=== PATIENT | female | born 1945 | race Caucasian/White ===

== ENCOUNTER 2017-01-02 15:08 | Inpatient (IN) | payer MEDICARE ==
[2017-01-02] MEDS ORDERED: DUONEB 0.5-3 MG/3 ml Neb IH PRN (16:19)
[2017-01-02] MEDS ORDERED: Sodium Chloride 0.9% 10 ML FLUSH Syringe IV PRN (16:22)
[2017-01-02 16:31] LABS: BASOPHIL % 0.2 % (0.0-0.4); Eosinophil % 5.9 % (0.00-5.0); Granulocytes % 65.2 % (36.0-66.0); Lymphocytes % 22.7 % (24.0-44.0); Mean Cell Volume 87.9 fl (78-100); Mean Platelet Volume 10.5 fl (6-9.5); Platelet Count 188 K/mm3 (150-450); Red Blood Count 4.29 M/mm3 (4.1-5.4); Red Cell Distribution Width 15.6 % (11.5-14.0); White Blood Count 9.3 K/mm3 (4.0-10.5)
[2017-01-02 16:59] LABS: ANION GAP 12.8 MEQ/L (5-15); BILIRUBIN,TOTAL 0.3 mg/dL (0.2-1.0); Carbon Dioxide 29.7 mEq/L (21-32); Potassium 4.4 mEq/L (3.5-5.1); Total Protein 7.1 gm/dL (6.4-8.2)
[2017-01-02] MEDS ORDERED: ATARAX 25 MG PO PRN (16:59)
[2017-01-02] MEDS ORDERED: ISOPTIN SR 180MG PO SCH (17:00)
[2017-01-02] MEDS: NORCO 7.5/325 MG TAB PO PRN ×2 (17:11→21:39)
[2017-01-02] MEDS: BUMEX 1 MG PO SCH (17:11)
[2017-01-02] MEDS: NovoLOG Insulin SQ PRN ×2 (17:17→22:28)
[2017-01-02] MEDS: VANCOCIN 1 GM VIAL*** 2 GM in Sodium Chloride 0.9% 500 ML 500 ML IV SCH (18:34)
[2017-01-02] MEDS: ENOXAPARIN SODIUM SQ SCH (18:34)
[2017-01-02] MEDS: Advair Hfa 230/21 Mcg COMMON CANISTER IH SCH (19:30)
[2017-01-02] MEDS ORDERED: NYSTATIN TOP SCH (22:00)
[2017-01-02] MEDS ORDERED: Lantus Insulin SQ SCH ×2 (22:00)
[2017-01-02] MEDS ORDERED: NON-FORMULARY ITEM (Losartan Potassium [Losartan Potassium] 100 MG) PO SCH (22:00)
[2017-01-02] MEDS: Cozaar 50 MG PO SCH (22:24)
[2017-01-02] MEDS: NEURONTIN 300 MG PO SCH (22:25)
[2017-01-02] MEDS: Ditropan 5 MG PO SCH (22:25)
[2017-01-02] MEDS: DULCOLAX 5 MG PO SCH (22:26)
[2017-01-02] MEDS: Catapres 0.1 MG PO SCH (22:26)
[2017-01-02] MEDS: NYSTOP POWDER 15 GM TOP SCH (22:27)
[2017-01-02] MEDS: Sodium Chloride 0.9% 10 ML FLUSH Syringe IV SCH (23:13)
[2017-01-02] MEDS: ISOPTIN SR 180MG PO SCH (23:22)
[2017-01-03] MEDS: Sodium Chloride 0.9% 10 ML FLUSH Syringe IV SCH ×2 (06:44→12:32)
[2017-01-03] MEDS: Advair Hfa 230/21 Mcg COMMON CANISTER IH SCH ×2 (07:34→19:13)
[2017-01-03] MEDS: BUMEX 1 MG PO SCH (08:23)
[2017-01-03] MEDS: NEURONTIN 300 MG PO SCH ×3 (08:23→21:36)
[2017-01-03] MEDS: Catapres 0.1 MG PO SCH ×3 (08:24→21:36)
[2017-01-03] MEDS: NYSTOP POWDER 15 GM TOP SCH (08:24)
[2017-01-03] MEDS: Ditropan 5 MG PO SCH ×2 (08:24→21:36)
[2017-01-03] MEDS: ISOPTIN SR 180MG PO SCH ×2 (08:24→21:34)
[2017-01-03] MEDS: NovoLOG Insulin SQ PRN ×3 (08:26→16:50)
[2017-01-03] MEDS: ENOXAPARIN SODIUM SQ SCH (08:27)
[2017-01-03] MEDS: NORCO 7.5/325 MG TAB PO PRN (08:31)
[2017-01-03] MEDS: Ecotrin 325 MG PO SCH (09:29)
[2017-01-03] MEDS: Zocor 10MG PO SCH (09:29)
[2017-01-03] MEDS ORDERED: NON-FORMULARY ITEM (Pravastatin Sodium [Pravastatin Sodium] 20 MG) PO SCH (10:00)
[2017-01-03] MEDS ORDERED: Dulcolax 10 MG SUPP PR PRN (10:58)
--- NOTE | 2017-01-03 11:02 | PCM.NOTE ---
Date and Time: 01/03/17 1057 Subjective Assessment: She is c/o sharp pain in the RLE. seems to have increased warmth since yesterday. Ferdinand po well. constipated. Objective Exam General Appearance: no apparent distress, obese Neurologic Exam: alert, oriented x 3, cooperative Skin Exam: warm Respiratory Exam: normal breath sounds, lungs clear, No crackles/rales, No rhonchi, No wheezing Cardiovascular Exam: regular rate/rhythm, normal heart sounds, No murmur Gastrointestinal/Abdomen Exam: soft, No tenderness Extremity Exam: other (LLE with chronic venous stasis change. RLE wrapped initially with dried yellow exudate; there is an odor. Erythema till approx 4cm distal to the knee; warm. when unwrapped, erythema is muted throughout.anteriorly there are several areas of shallow depression with blood seeping (s/p PT).) OBJECTIVE DATA Vital Signs: Vital Signs - 24 hr Temp Pulse Resp BP Pulse Ox 01/03/17 07:58 97.8 F 63 24 146/66 92 L 01/03/17 07:00 92 H 18 93 L 01/03/17 03:53 98.3 F 60 19 126/60 97 01/03/17 00:00 98.4 F 63 20 120/62 94 L 01/02/17 19:46 97.7 F 63 18 130/66 95 01/02/17 19:30 69 18 96 01/02/17 16:45 72 20 94 L 01/02/17 16:10 97.8 F 65 20 124/61 91 L Oxygen-Last 24 hours O2 Percentage 2 Liters = 28% O2 Percentage 2 Liters = 28% Pain Assessment - Last Documented Pain Intensity 6 Pain Scale Used 0-10 Pain Scale Intake and Output: Intake & Output 12/31/16 01/01/17 01/02/17 01/03/17 11:59 11:59 11:59 11:59 Intake Total 2467 Output Total 700 Balance 1767 Weight 189.42 kg Lab Results: Accuchecks Date 01/02/17 Date 01/02/17 Time 20:54 Time 16:30 Accucheck Value: 258 Accucheck Value: 315 Accucheck Value: 217 Lab Results-Last 24 Hours 01/02/17 01/02/17 01/02/17 Range/Units 16:15 16:15 16:16 WBC 9.3 (4.0-10.5) K/mm3 RBC 4.29 (4.1-5.4) M/mm3 Hgb 11.6 L (12.0-16.0) gm/dl Hct 37.7 (35-47) % MCV 87.9 (78-100) fl MCH 27.0 (26-32) pg MCHC 30.8 L (32-36) g/dl RDW 15.6 H (11.5-14.0) % Plt Count 188 (150-450) K/mm3 MPV 10.5 H (6-9.5) fl Gran % 65.2 (36.0-66.0) % Lymphocytes % 22.7 L (24.0-44.0) % Monocytes % 6.0 (0.0-12.0) % Eosinophils % 5.9 H (0.00-5.0) % Basophils % 0.2 (0.0-0.4) % Basophils # 0.02 (0-0.4) Sodium 141 (136-145) mEq/L Potassium 4.4 (3.5-5.1) mEq/L Chloride 103 (98-107) mEq/L Carbon Dioxide 29.7 (21-32) mEq/L Anion Gap 12.8 (5-15) MEQ/L BUN 24 H (9-20) mg/dL Creatinine 1.26 (0.55-1.30) mg/dl Estimated GFR 44 ML/MIN Glucose 237 H (70-110) MG/DL Calcium 9.3 (8.5-10.1) mg/dL Total Bilirubin 0.3 (0.2-1.0) mg/dL AST 15 (15-37) U/L ALT 12 (12-78) U/L Alkaline Phosphatase 87 (46-116) U/L Serum Total Protein 7.1 (6.4-8.2) gm/dL Albumin 3.0 L (3.4-5.0) g/dL Prealbumin 14.9 L (18.0-35.7) mg/dL Assessment/Plan (1) Cellulitis Current Visit: Yes Status: Acute Assessment & Plan: Seems a bit worse to her; will add IV levaquin to the IV vancomycin. Change norco to percocet for pain. Code(s): L03.90 - CELLULITIS, UNSPECIFIED (2) Constipation Current Visit: Yes Status: Acute Assessment & Plan: add miralax and dulcolax suppository prn. Code(s): K59.00 - CONSTIPATION, UNSPECIFIED (3) Renal insufficiency Current Visit: Yes Status: Acute Assessment & Plan: recheck in a.m. (4) Morbid obesity Current Visit: Yes Status: Chronic Code(s): E66.01 - MORBID (SEVERE) OBESITY DUE TO EXCESS CALORIES (5) Chronic back pain Current Visit: Yes Status: Chronic Qualifiers: Back pain location: back pain in unspecified location Back pain laterality : unspecified Qualified Code(s): M54.9 - Dorsalgia, unspecified; G89.29 - Other chronic pain Assessment & Plan: takes norco at baseline for back pain. Code(s): M54.9 - DORSALGIA, UNSPECIFIED; G89.29 - OTHER CHRONIC PAIN
[2017-01-03] MEDS: Levofloxacin 500MG/100ML D5W 100 ML IV SCH (11:25)
[2017-01-03] MEDS: Miralax Powder 17GM PACKET PO SCH (11:25)
[2017-01-03] MEDS: VANCOCIN 1 GM VIAL*** 2 GM in Sodium Chloride 0.9% 500 ML 500 ML IV SCH (12:32)
[2017-01-03] MEDS: OXYCODONE-ACETAMINOPHEN 10-325 PO PRN ×2 (13:41→20:02)
[2017-01-03] MEDS: Cozaar 50 MG PO SCH (21:34)
[2017-01-03] MEDS: DULCOLAX 5 MG PO SCH (21:37)
[2017-01-04] MEDS: OXYCODONE-ACETAMINOPHEN 10-325 PO PRN ×4 (04:50→21:28)
[2017-01-04] MEDS ORDERED: TROUGH DRUG LEVELS IJ ONE (05:30)
[2017-01-04] MEDS: VANCOCIN 1 GM VIAL*** 2 GM in Sodium Chloride 0.9% 500 ML 500 ML IV SCH (06:42)
[2017-01-04] MEDS: Advair Hfa 230/21 Mcg COMMON CANISTER IH SCH ×2 (06:47→19:14)
[2017-01-04] MEDS: NovoLOG Insulin SQ PRN ×4 (08:19→21:31)
--- NOTE | 2017-01-04 09:51 | PCM.NOTE ---
Date and Time: 01/04/17945 Subjective Assessment: The percocet helped her pain more than the norco; she was able to sleep last night. Still constipated but she did not take the dulcolax suppository; she did take the miralax. Redness is better in the RLE. - Review of Systems Constitutional: No Fever Musculoskeletal: Other (leg pain RLE wiht exudate) Objective Exam General Appearance: no apparent distress, obese Neurologic Exam: alert, oriented x 3, cooperative Respiratory Exam: normal breath sounds, lungs clear, No crackles/rales, No rhonchi, No wheezing Cardiovascular Exam: regular rate/rhythm, normal heart sounds, No murmur Extremity Exam: other (RLE with erythema approx 2-3 cm inferior to marked line. scattered open areas with yellow exudate and serous drainage) Back Exam: normal inspection OBJECTIVE DATA Vital Signs: Vital Signs - 24 hr Temp Pulse Resp BP Pulse Ox 01/04/17 07:30 97.9 F 60 20 110/57 94 L 01/04/17 06:51 78 18 96 01/04/17 04:00 98 F 18 L 134/84 95 01/04/17 00:00 98 F 18 L 134/84 95 01/03/17 20:00 98.4 F 17 L 134/63 96 01/03/17 19:13 17 L 96 01/03/17 15:20 98.4 F 67 20 134/63 97 01/03/17 12:00 97.8 F 77 26 H 147/77 93 L Oxygen-Last 24 hours O2 Percentage 2 Liters = 28% O2 Percentage 2 Liters = 28% Pain Assessment - Last Documented Pain Intensity 2 Pain Scale Used 0-10 Pain Scale Intake and Output: Intake & Output 01/01/17 01/02/17 01/03/17 01/04/17 11:59 11:59 11:59 11:59 Intake Total 2467 1100 Output Total 700 2300 Balance 1767 -1200 Weight 189.42 kg 190.645 kg Lab Results: Accuchecks Date 01/04/17 Date 01/03/17 Date 01/03/17 Time 08:19 Time 21:30 Time 12:00 Accucheck Value: 236 Accucheck Value: 298 Accucheck Value: 293 Accucheck Value: 358 Lab Results-Last 24 Hours 01/04/17 Range/Units 05:25 Vancomycin Trough 13.5 (10-20) UG/ML Multi-Disciplinary Progress Notes: Multi-Disciplinary Progress Notes 01/03/17 13:15 Physical Therapy Note by My Devi TUBIGRIP SLEEVE CHARGED TO PATIENT FOR UNDER WALKING BOOT LLE. DISCUSSED SKIN CARE BEST METHOD AT THIS TIME WITH PHYSICIAN AND NURSING STAFF.....BARRIER OINTMENT TO RIGHT CALF 2-3X PER DAY.....DAILY HIBICLENS SOAK....ICE PACKS TO COUNTER INFLAMMATION BID AND PRN. Initialized on 01/03/17 13:15 - END OF NOTE Assessment/Plan (1) Cellulitis Current Visit: Yes Status: Acute Assessment & Plan: Seems much improved since yesterday. On Day #3 of Vancomycin and day #2 of levaquin, both IV. Pain is better on percocet. Code(s): L03.90 - CELLULITIS, UNSPECIFIED (2) Constipation Current Visit: Yes Status: Acute Assessment & Plan: Has not had a bowel movement yet. I encouraged daily miralax and try the dulcolax suppository today. Code(s): K59.00 - CONSTIPATION, UNSPECIFIED (3) Renal insufficiency Current Visit: Yes Status: Acute Assessment & Plan: recheck labs in a.m. (4) Morbid obesity Current Visit: Yes Status: Chronic Code(s): E66.01 - MORBID (SEVERE) OBESITY DUE TO EXCESS CALORIES (5) Chronic back pain Current Visit: Yes Status: Chronic Qualifiers: Back pain location: back pain in unspecified location Back pain laterality : unspecified Qualified Code(s): M54.9 - Dorsalgia, unspecified; G89.29 - Other chronic pain Code(s): M54.9 - DORSALGIA, UNSPECIFIED; G89.29 - OTHER CHRONIC PAIN (6) Diabetes mellitus Current Visit: Yes Status: Acute Qualifiers: Diabetes mellitus type: type 2 Diabetes mellitus complication status: without complication Diabetes mellitus ferry terminal agent insulin use: unspecified jail insulin use status Qualified Code(s): E11.9 - Type 2 diabetes mellitus without complications Assessment & Plan: A1c 8.4. BS 250s-300s here; will increase lantus from 40 units to 45 units at hs. Code(s): E11.9 - TYPE 2 DIABETES MELLITUS WITHOUT COMPLICATIONS
[2017-01-04] MEDS: Miralax Powder 17GM PACKET PO SCH (10:30)
[2017-01-04] MEDS: NEURONTIN 300 MG PO SCH ×3 (10:30→21:26)
[2017-01-04] MEDS: NYSTOP POWDER 15 GM TOP SCH ×2 (10:30→21:30)
[2017-01-04] MEDS: Ecotrin 325 MG PO SCH (10:30)
[2017-01-04] MEDS: BUMEX 1 MG PO SCH (10:30)
[2017-01-04] MEDS: Ditropan 5 MG PO SCH ×2 (10:30→21:27)
[2017-01-04] MEDS: ISOPTIN SR 180MG PO SCH ×2 (10:30→21:29)
[2017-01-04] MEDS: Levofloxacin 500MG/100ML D5W 100 ML IV SCH (10:30)
[2017-01-04] MEDS: Catapres 0.1 MG PO SCH ×3 (10:30→21:27)
[2017-01-04] MEDS: Zocor 10MG PO SCH (10:30)
[2017-01-04] MEDS: ENOXAPARIN SODIUM SQ SCH (10:30)
[2017-01-04] MEDS: Sodium Chloride 0.9% 10 ML FLUSH Syringe IV SCH ×2 (14:00→21:29)
[2017-01-04] MEDS: DULCOLAX 5 MG PO SCH (21:27)
[2017-01-04] MEDS: Cozaar 50 MG PO SCH (21:28)
[2017-01-04] MEDS ORDERED: Lantus Insulin SQ SCH (22:00)
[2017-01-05] MEDS: VANCOCIN 1 GM VIAL*** 2 GM in Sodium Chloride 0.9% 500 ML 500 ML IV SCH ×3 (00:54→17:07)
[2017-01-05] MEDS: OXYCODONE-ACETAMINOPHEN 10-325 PO PRN ×5 (03:42→22:12)
[2017-01-05 05:31] LABS: BASOPHIL % 0.3 % (0.0-0.4); Eosinophil % 7.5 % (0.00-5.0); Granulocytes % 56.4 % (36.0-66.0); Lymphocytes % 27.9 % (24.0-44.0); Mean Cell Volume 89.6 fl (78-100); Mean Platelet Volume 10.7 fl (6-9.5); Monocytes % 7.9 % (0.0-12.0); Platelet Count 157 K/mm3 (150-450); Red Blood Count 4.04 M/mm3 (4.1-5.4); Red Cell Distribution Width 15.3 % (11.5-14.0); White Blood Count 6.8 K/mm3 (4.0-10.5)
[2017-01-05 05:35] LABS: Mean Corpuscular Hemoglobin 27.4 pg (26-32)
[2017-01-05 06:09] LABS: ANION GAP 12.9 MEQ/L (5-15); Carbon Dioxide 28.6 mEq/L (21-32); Potassium 4.5 mEq/L (3.5-5.1)
[2017-01-05] MEDS: Advair Hfa 230/21 Mcg COMMON CANISTER IH SCH ×2 (06:30→19:51)
[2017-01-05] MEDS: NovoLOG Insulin SQ PRN ×4 (07:30→22:16)
[2017-01-05] MEDS: Miralax Powder 17GM PACKET PO SCH (08:05)
[2017-01-05] MEDS: Levofloxacin 500MG/100ML D5W 100 ML IV SCH (08:05)
[2017-01-05] MEDS: Zocor 10MG PO SCH (08:06)
[2017-01-05] MEDS: Ecotrin 325 MG PO SCH (08:06)
[2017-01-05] MEDS: NEURONTIN 300 MG PO SCH ×3 (08:06→22:12)
[2017-01-05] MEDS: Ditropan 5 MG PO SCH ×2 (08:06→22:12)
[2017-01-05] MEDS: BUMEX 1 MG PO SCH (08:06)
[2017-01-05] MEDS: ENOXAPARIN SODIUM SQ SCH (08:06)
[2017-01-05] MEDS: Sodium Chloride 0.9% 10 ML FLUSH Syringe IV SCH ×3 (08:11→20:30)
--- NOTE | 2017-01-05 08:25 | PCM.NOTE ---
Date and Time: 01/05/17816 Subjective Assessment: no new problems or concerns, has some improvement in redness and pain to right leg. Objective Exam General Appearance: no apparent distress, alert, obese Respiratory Exam: normal breath sounds, lungs clear, No respiratory distress Gastrointestinal/Abdomen Exam: soft, No tenderness, No mass Extremity Exam: other (right lower leg, superficial open area. improved erythema , mild drainage present) OBJECTIVE DATA Vital Signs: Vital Signs - 24 hr Temp Pulse Resp BP Pulse Ox 01/05/17 07:19 97.7 F 60 18 102/55 96 01/05/17 06:33 65 16 94 L 01/05/17 04:00 97.7 F 66 15 134/64 94 L 01/05/17 00:00 97.9 F 70 15 150/65 95 01/04/17 20:00 98.3 F 63 17 124/63 95 01/04/17 19:16 67 20 95 01/04/17 16:00 64 18 125/58 93 L 01/04/17 11:47 98.2 F 61 18 108/53 95 Oxygen-Last 24 hours O2 Percentage 2 Liters = 28% O2 Percentage 2 Liters = 28% O2 Percentage 2 Liters = 28% O2 Percentage 2 Liters = 28% O2 Percentage 2 Liters = 28% O2 Percentage 2 Liters = 28% Pain Assessment - Last Documented Pain Intensity 4 Pain Scale Used 0-10 Pain Scale Intake and Output: Intake & Output 01/02/17 01/03/17 01/04/17 01/05/17 11:59 11:59 11:59 11:59 Intake Total 2467 1100 2180 Output Total 700 2300 900 Balance 1767 -1200 1280 Weight 189.42 kg 190.645 kg Lab Results: Accuchecks Date 01/05/17 Date 01/04/17 Time 07:31 Time 11:30 Accucheck Value: 259 Accucheck Value: 357 Accucheck Value: 329 Accucheck Value: 343 Lab Results-Last 24 Hours 01/05/17 01/05/17 Range/Units 05:15 05:15 WBC 6.8 (4.0-10.5) K/mm3 RBC 4.04 L (4.1-5.4) M/mm3 Hgb 11.1 L (12.0-16.0) gm/dl Hct 36.2 (35-47) % MCV 89.6 (78-100) fl MCH 27.4 (26-32) pg MCHC 30.7 L (32-36) g/dl RDW 15.3 H (11.5-14.0) % Plt Count 157 (150-450) K/mm3 MPV 10.7 H (6-9.5) fl Gran % 56.4 (36.0-66.0) % Lymphocytes % 27.9 (24.0-44.0) % Monocytes % 7.9 (0.0-12.0) % Eosinophils % 7.5 H (0.00-5.0) % Basophils % 0.3 (0.0-0.4) % Basophils # 0.02 (0-0.4) Sodium 138 (136-145) mEq/L Potassium 4.5 (3.5-5.1) mEq/L Chloride 101 (98-107) mEq/L Carbon Dioxide 28.6 (21-32) mEq/L Anion Gap 12.9 (5-15) MEQ/L BUN 20 (9-20) mg/dL Creatinine 1.31 H (0.55-1.30) mg/dl Estimated GFR 42 ML/MIN Glucose 335 H (70-110) MG/DL Calcium 8.9 (8.5-10.1) mg/dL Assessment/Plan (1) Cellulitis Current Visit: Yes Status: Acute Assessment & Plan: continue Vanc, wound c and s pending. continue PT for wound care. Code(s): L03.90 - CELLULITIS, UNSPECIFIED (2) Diabetes mellitus Current Visit: Yes Status: Acute Qualifiers: Diabetes mellitus type: type 2 Diabetes mellitus complication status: without complication Diabetes mellitus dedicated intermodal truck driver insulin use: unspecified fdc insulin use status Qualified Code(s): E11.9 - Type 2 diabetes mellitus without complications Assessment & Plan: stable, no changes Code(s): E11.9 - TYPE 2 DIABETES MELLITUS WITHOUT COMPLICATIONS (3) Renal insufficiency Current Visit: Yes Status: Acute (4) Morbid obesity Current Visit: Yes Status: Chronic Code(s): E66.01 - MORBID (SEVERE) OBESITY DUE TO EXCESS CALORIES
[2017-01-05] MEDS ORDERED: Lantus Insulin SQ SCH (08:27)
[2017-01-05] MEDS: Catapres 0.1 MG PO SCH ×4 (08:50→22:12)
[2017-01-05] MEDS: NYSTOP POWDER 15 GM TOP SCH ×2 (08:50→22:17)
[2017-01-05] MEDS: ISOPTIN SR 180MG PO SCH ×3 (08:50→22:12)
[2017-01-05] MEDS: Cozaar 50 MG PO SCH (22:09)
[2017-01-05] MEDS: DULCOLAX 5 MG PO SCH (22:10)
[2017-01-06] MEDS: OXYCODONE-ACETAMINOPHEN 10-325 PO PRN ×3 (05:56→19:35)
[2017-01-06] MEDS: Sodium Chloride 0.9% 10 ML FLUSH Syringe IV SCH ×3 (05:58→22:00)
[2017-01-06] MEDS: Advair Hfa 230/21 Mcg COMMON CANISTER IH SCH ×2 (06:53→19:12)
[2017-01-06] MEDS: NovoLOG Insulin SQ PRN ×4 (07:54→23:12)
[2017-01-06] MEDS ORDERED: CITROMA 296 ML PO SCH (08:30)
--- NOTE | 2017-01-06 08:33 | PCM.NOTE ---
Date and Time: 01/06/17829 Subjective Assessment: Leg pain is better, still hurts at times. Better wtih po pain meds. Still constipated despite miralax. Objective Exam General Appearance: no apparent distress, obese, other (SOB after changing position in bed) Neurologic Exam: alert, oriented x 3, cooperative Skin Exam: normal color, warm, dry Respiratory Exam: normal breath sounds, lungs clear, No crackles/rales, No rhonchi, No wheezing Cardiovascular Exam: regular rate/rhythm, normal heart sounds, No murmur Extremity Exam: other (RLE wrapped. erythema appears decreased superiorly. LLE chronic venous stasis change as usual.) OBJECTIVE DATA Vital Signs: Vital Signs - 24 hr Temp Pulse Resp BP Pulse Ox 01/06/17 07:35 98.5 F 74 20 126/60 95 01/06/17 07:00 72 18 92 L 01/06/17 04:00 98.4 F 85 22 155/65 90 L 01/06/17 00:00 98.1 F 70 22 128/57 96 01/05/17 20:00 98.0 F 64 24 114/64 96 01/05/17 19:00 65 18 89 L 01/05/17 15:55 98.3 F 65 18 109/56 96 01/05/17 11:10 98.2 F 65 18 141/65 93 L Oxygen-Last 24 hours O2 Percentage 2 Liters = 28% O2 Percentage 2 Liters = 28% O2 Percentage 2 Liters = 28% O2 Percentage 2 Liters = 28% O2 Percentage 2 Liters = 28% Pain Assessment - Last Documented Pain Intensity 6 Pain Scale Used [facility] Intake and Output: Intake & Output 01/03/17 01/04/17 01/05/17 01/06/17 11:59 11:59 11:59 11:59 Intake Total 2467 1100 2660 1580 Output Total 700 2300 1800 1900 Balance 1767 -1200 860 -320 Weight 189.42 kg 190.645 kg 192.913 kg Lab Results: Accuchecks Date 01/05/17 Date 01/05/17 Date 01/05/17 Time 21:30 Time 16:20 Time 11:15 Accucheck Value: 326 Accucheck Value: 310 Accucheck Value: 321 Assessment/Plan (1) Cellulitis Current Visit: Yes Status: Acute Qualifiers: Site of cellulitis: extremity Site of cellulitis of extremity: lower extremity Laterality: right Qualified Code(s): L03.115 - Cellulitis of right lower limb Assessment & Plan: On IV vancomycin and levaquin with good response. PT doing wound care, thank you! Code(s): L03.90 - CELLULITIS, UNSPECIFIED (2) Constipation Current Visit: Yes Status: Acute Qualifiers: Constipation type: slow transit constipation Qualified Code(s): K59.01 - Slow transit constipation Assessment & Plan: exacerbated by pain meds. Try magnesium citrate today. Code(s): K59.00 - CONSTIPATION, UNSPECIFIED (3) Renal insufficiency Current Visit: Yes Status: Acute Assessment & Plan: recheck in a.m. (4) Morbid obesity Current Visit: Yes Status: Chronic Qualifiers: Obesity type: due to excess calories Qualified Code(s): E66.01 - Morbid ( severe) obesity due to excess calories Code(s): E66.01 - MORBID (SEVERE) OBESITY DUE TO EXCESS CALORIES (5) Chronic back pain Current Visit: Yes Status: Chronic Qualifiers: Back pain location: back pain in unspecified location Back pain laterality : unspecified Qualified Code(s): M54.9 - Dorsalgia, unspecified; G89.29 - Other chronic pain Code(s): M54.9 - DORSALGIA, UNSPECIFIED; G89.29 - OTHER CHRONIC PAIN (6) Diabetes mellitus Current Visit: Yes Status: Acute Qualifiers: Diabetes mellitus type: type 2 Diabetes mellitus complication status: without complication Diabetes mellitus terminal clerk insulin use: unspecified terminal clerk insulin use status Qualified Code(s): E11.9 - Type 2 diabetes mellitus without complications Assessment & Plan: BS in 300s - will increase lantus to 55 units at hs. Code(s): E11.9 - TYPE 2 DIABETES MELLITUS WITHOUT COMPLICATIONS
[2017-01-06] MEDS: Miralax Powder 17GM PACKET PO SCH (09:04)
[2017-01-06] MEDS: Ecotrin 325 MG PO SCH (09:04)
[2017-01-06] MEDS: Ditropan 5 MG PO SCH ×2 (09:04→21:50)
[2017-01-06] MEDS: Zocor 10MG PO SCH (09:05)
[2017-01-06] MEDS: Catapres 0.1 MG PO SCH ×3 (09:05→21:50)
[2017-01-06] MEDS: ISOPTIN SR 180MG PO SCH ×2 (09:05→21:50)
[2017-01-06] MEDS: BUMEX 1 MG PO SCH (09:06)
[2017-01-06] MEDS: NEURONTIN 300 MG PO SCH ×3 (09:06→21:50)
[2017-01-06] MEDS: NYSTOP POWDER 15 GM TOP SCH ×2 (09:10→21:50)
[2017-01-06] MEDS: Levofloxacin 500MG/100ML D5W 100 ML IV SCH (09:13)
[2017-01-06] MEDS: ENOXAPARIN SODIUM SQ SCH (10:49)
[2017-01-06] MEDS ORDERED: TROUGH DRUG LEVELS IJ ONE (11:30)
[2017-01-06] MEDS: VANCOCIN 1 GM VIAL*** 2 GM in Sodium Chloride 0.9% 500 ML 500 ML IV SCH (11:52)
[2017-01-06] MEDS: Cozaar 50 MG PO SCH (21:49)
[2017-01-06] MEDS: Lantus Insulin SQ SCH (21:52)
[2017-01-06] MEDS: DULCOLAX 5 MG PO SCH (22:10)
[2017-01-07] MEDS: Sodium Chloride 0.9% 10 ML FLUSH Syringe IV SCH ×3 (00:35→15:05)
[2017-01-07] MEDS: VANCOCIN 1 GM VIAL*** 2 GM in Sodium Chloride 0.9% 500 ML 500 ML IV SCH (05:34)
[2017-01-07] MEDS: OXYCODONE-ACETAMINOPHEN 10-325 PO PRN ×3 (05:34→21:56)
[2017-01-07 05:58] LABS: BASOPHIL % 0.4 % (0.0-0.4); Eosinophil % 7.8 % (0.00-5.0); Granulocytes % 57.6 % (36.0-66.0); Lymphocytes % 25.1 % (24.0-44.0); Mean Cell Volume 89.4 fl (78-100); Mean Platelet Volume 10.5 fl (6-9.5); Monocytes % 9.1 % (0.0-12.0); Platelet Count 148 K/mm3 (150-450); Red Blood Count 4.14 M/mm3 (4.1-5.4); Red Cell Distribution Width 15.2 % (11.5-14.0); White Blood Count 7.3 K/mm3 (4.0-10.5)
[2017-01-07 05:59] LABS: Mean Corpuscular Hemoglobin 27.2 pg (26-32)
[2017-01-07 06:05] LABS: ANION GAP 8.4 MEQ/L (5-15); Carbon Dioxide 32.4 mEq/L (21-32); Potassium 4.5 mEq/L (3.5-5.1)
[2017-01-07] MEDS: Advair Hfa 230/21 Mcg COMMON CANISTER IH SCH ×2 (07:19→19:33)
[2017-01-07] MEDS: NovoLOG Insulin SQ PRN ×4 (08:02→22:10)
--- NOTE | 2017-01-07 08:47 | PCM.NOTE ---
Date and Time: 01/07/17 0844 Subjective Assessment: redness, drainage, pain and swelling improving to RLE. Objective Exam General Appearance: no apparent distress, alert, obese Respiratory Exam: normal breath sounds, lungs clear, No respiratory distress Cardiovascular Exam: regular rate/rhythm, normal heart sounds Gastrointestinal/Abdomen Exam: soft, No tenderness, No mass Extremity Exam: other (superficial open area, improved redness and warmth) OBJECTIVE DATA Vital Signs: Vital Signs - 24 hr Temp Pulse Resp BP Pulse Ox 01/07/17 07:19 71 16 97 01/07/17 07:14 98.5 F 71 18 135/67 92 L 01/07/17 04:00 99.0 F 64 19 118/56 95 01/07/17 00:00 98.1 F 65 19 120/61 93 L 01/06/17 20:00 98.0 F 69 20 131/64 95 01/06/17 19:00 63 18 93 L 01/06/17 16:00 98.0 F 58 L 18 114/56 95 01/06/17 11:48 98.0 F 70 18 121/57 96 Oxygen-Last 24 hours O2 Percentage 2 Liters = 28% O2 Percentage 2 Liters = 28% O2 Percentage 2 Liters = 28% Pain Assessment - Last Documented Pain Intensity 6 Pain Scale Used 0-10 Pain Scale Intake and Output: Intake & Output 01/04/17 01/05/17 01/06/17 01/07/17 11:59 11:59 11:59 11:59 Intake Total 1100 2660 1960 2300 Output Total 2300 1800 1900 800 Balance -1200 808 05 1067 Weight 190.645 kg 192.913 kg 193.503 kg Lab Results: Accuchecks Date 01/06/17 Date 01/06/17 Date 01/06/17 Time 22:00 Time 16:30 Time 11:30 Accucheck Value: 307 Accucheck Value: 274 Accucheck Value: 299 Lab Results-Last 24 Hours 01/06/17 01/07/17 01/07/17 Range/Units 11:33 05:22 05:22 WBC 7.3 (4.0-10.5) K/mm3 RBC 4.14 (4.1-5.4) M/mm3 Hgb 11.3 L (12.0-16.0) gm/dl Hct 37.0 (35-47) % MCV 89.4 (78-100) fl MCH 27.2 (26-32) pg MCHC 30.5 L (32-36) g/dl RDW 15.2 H (11.5-14.0) % Plt Count 148 L (150-450) K/mm3 MPV 10.5 H (6-9.5) fl Gran % 57.6 (36.0-66.0) % Lymphocytes % 25.1 (24.0-44.0) % Monocytes % 9.1 (0.0-12.0) % Eosinophils % 7.8 H (0.00-5.0) % Basophils % 0.4 (0.0-0.4) % Basophils # 0.03 (0-0.4) Sodium 137 (136-145) mEq/L Potassium 4.5 (3.5-5.1) mEq/L Chloride 101 (98-107) mEq/L Carbon Dioxide 32.4 H (21-32) mEq/L Anion Gap 8.4 (5-15) MEQ/L BUN 21 H (9-20) mg/dL Creatinine 1.35 H (0.55-1.30) mg/dl Estimated GFR 41 ML/MIN Glucose 301 H (70-110) MG/DL Calcium 9.2 (8.5-10.1) mg/dL Vancomycin Trough 17.0 (10-20) UG/ML Multi-Disciplinary Progress Notes: Multi-Disciplinary Progress Notes 01/06/17 12:54 Pharmacy Note by Alexei Andrew Vancomycin trough 17.0. Good level, creat up a little to 1.31. BMP scheduled for tomorrow am. Will adjust dose if creat goes up. Initialized on 01/06/17 12:54 - END OF NOTE 01/06/17 10:43 Case Management Note by Krista Simental SPOKE WITH PT THIS AM. PT ALREADY HAS [facility]. WILL CONT TO MONITOR ANY D/ C NEEDS DURING STAY. Initialized on 01/06/17 10:43 - END OF NOTE Assessment/Plan (1) Cellulitis Current Visit: Yes Status: Acute Qualifiers: Site of cellulitis: extremity Site of cellulitis of extremity: lower extremity Laterality: right Qualified Code(s): L03.115 - Cellulitis of right lower limb Assessment & Plan: continue vanc and levaquin, improving. wound culture not helpful, multiple organisms c/w skin jonnathan, no predominant organism Code(s): L03.90 - CELLULITIS, UNSPECIFIED (2) Diabetes mellitus Current Visit: Yes Status: Acute Qualifiers: Diabetes mellitus type: type 2 Diabetes mellitus complication status: without complication Diabetes mellitus petroleum terminal plant operator insulin use: unspecified petroleum terminal plant operator insulin use status Qualified Code(s): E11.9 - Type 2 diabetes mellitus without complications Code(s): E11.9 - TYPE 2 DIABETES MELLITUS WITHOUT COMPLICATIONS (3) Renal insufficiency Current Visit: Yes Status: Acute (4) Morbid obesity Current Visit: Yes Status: Chronic Qualifiers: Obesity type: due to excess calories Qualified Code(s): E66.01 - Morbid ( severe) obesity due to excess calories Code(s): E66.01 - MORBID (SEVERE) OBESITY DUE TO EXCESS CALORIES (5) Constipation Current Visit: Yes Status: Acute Qualifiers: Constipation type: slow transit constipation Qualified Code(s): K59.01 - Slow transit constipation Assessment & Plan: no results with prune juice, mag citrate etc. order fleets enema today Code(s): K59.00 - CONSTIPATION, UNSPECIFIED
[2017-01-07] MEDS: Catapres 0.1 MG PO SCH ×3 (09:46→21:56)
[2017-01-07] MEDS: NEURONTIN 300 MG PO SCH ×3 (09:46→21:57)
[2017-01-07] MEDS: Ditropan 5 MG PO SCH ×2 (09:46→21:57)
[2017-01-07] MEDS: Zocor 10MG PO SCH (09:46)
[2017-01-07] MEDS: Miralax Powder 17GM PACKET PO SCH (09:46)
[2017-01-07] MEDS: Levofloxacin 500MG/100ML D5W 100 ML IV SCH (09:46)
[2017-01-07] MEDS: ISOPTIN SR 180MG PO SCH ×2 (09:47→21:57)
[2017-01-07] MEDS: ENOXAPARIN SODIUM SQ SCH (09:47)
[2017-01-07] MEDS: BUMEX 1 MG PO SCH (09:47)
[2017-01-07] MEDS: NYSTOP POWDER 15 GM TOP SCH ×2 (09:47→22:00)
[2017-01-07] MEDS: Ecotrin 325 MG PO SCH (09:47)
[2017-01-07] MEDS: Cozaar 50 MG PO SCH (21:56)
[2017-01-07] MEDS: DULCOLAX 5 MG PO SCH (21:57)
[2017-01-07] MEDS: Lantus Insulin SQ SCH (22:09)
[2017-01-08] MEDS: VANCOCIN 1 GM VIAL*** 2 GM in Sodium Chloride 0.9% 500 ML 500 ML IV SCH (05:09)
[2017-01-08 05:35] LABS: BASOPHIL % 0.2 % (0.0-0.4); Eosinophil % 8.4 % (0.00-5.0); Granulocytes % 53.3 % (36.0-66.0); Lymphocytes % 30.1 % (24.0-44.0); Mean Cell Volume 88.3 fl (78-100); Mean Platelet Volume 10.7 fl (6-9.5); Platelet Count 156 K/mm3 (150-450); Red Blood Count 4.29 M/mm3 (4.1-5.4); Red Cell Distribution Width 15.2 % (11.5-14.0); White Blood Count 8.1 K/mm3 (4.0-10.5)
[2017-01-08 05:38] LABS: Mean Corpuscular Hemoglobin 27.2 pg (26-32)
[2017-01-08 05:56] LABS: ANION GAP 11.2 MEQ/L (5-15); Carbon Dioxide 30.2 mEq/L (21-32); Potassium 4.5 mEq/L (3.5-5.1)
[2017-01-08] MEDS: Advair Hfa 230/21 Mcg COMMON CANISTER IH SCH ×2 (06:44→19:46)
[2017-01-08] MEDS: OXYCODONE-ACETAMINOPHEN 10-325 PO PRN ×3 (08:04→22:36)
[2017-01-08] MEDS: NovoLOG Insulin SQ PRN ×4 (08:50→22:37)
[2017-01-08] MEDS: Levofloxacin 500MG/100ML D5W 100 ML IV SCH (08:54)
[2017-01-08] MEDS: BUMEX 1 MG PO SCH (09:28)
[2017-01-08] MEDS: NEURONTIN 300 MG PO SCH ×3 (09:28→22:36)
[2017-01-08] MEDS: Catapres 0.1 MG PO SCH ×3 (09:28→22:36)
[2017-01-08] MEDS: Miralax Powder 17GM PACKET PO SCH (09:28)
[2017-01-08] MEDS: Ditropan 5 MG PO SCH ×2 (09:28→22:36)
[2017-01-08] MEDS: Ecotrin 325 MG PO SCH (09:28)
[2017-01-08] MEDS: Zocor 10MG PO SCH (09:29)
[2017-01-08] MEDS: ENOXAPARIN SODIUM SQ SCH (09:29)
[2017-01-08] MEDS: ISOPTIN SR 180MG PO SCH ×2 (09:29→22:36)
[2017-01-08] MEDS: NYSTOP POWDER 15 GM TOP SCH ×2 (09:37→23:02)
[2017-01-08] MEDS: Sodium Chloride 0.9% 10 ML FLUSH Syringe IV SCH ×4 (10:49→22:36)
--- NOTE | 2017-01-08 13:28 | PCM.NOTE ---
Date and Time: 01/08/17 1327 Subjective Assessment: doing better this am, bowels moved yesterday. leg is improving, still has some drainage but pain and swelling improving. Objective Exam General Appearance: obese Skin Exam: normal color Respiratory Exam: normal breath sounds, lungs clear, No respiratory distress Cardiovascular Exam: regular rate/rhythm, normal heart sounds Gastrointestinal/Abdomen Exam: soft, No tenderness, No mass Extremity Exam: other (right lower leg improving, less erythema, less drainage and open areas appear to be granulating) OBJECTIVE DATA Vital Signs: Vital Signs - 24 hr Temp Pulse Resp BP Pulse Ox 01/08/17 11:24 97.5 F 60 20 125/60 96 01/08/17 06:51 97.5 F 60 20 143/74 95 01/08/17 06:45 57 L 18 94 L 01/08/17 04:00 97.8 F 63 18 112/58 96 01/08/17 00:00 97.7 F 58 L 18 123/59 97 01/07/17 20:00 97.9 F 66 14 114/59 92 L 01/07/17 19:35 56 L 18 97 01/07/17 16:17 98 F 65 20 98/48 95 Oxygen-Last 24 hours O2 Percentage 2 Liters = 28% O2 Percentage 2 Liters = 28% O2 Percentage 2 Liters = 28% O2 Percentage 2 Liters = 28% O2 Percentage 2 Liters = 28% Pain Assessment - Last Documented Pain Intensity 7 Pain Scale Used 0-10 Pain Scale Intake and Output: Intake & Output 01/06/17 01/07/17 01/08/17 01/09/17 11:59 11:59 11:59 11:59 Intake Total 1960 2780 1160 Output Total 1900 800 600 Balance 60 1980 560 Weight 192.913 kg 193.503 kg 193.865 kg Lab Results: Accuchecks Date 01/08/17 Date 01/08/17 Date 01/07/17 Time 11:52 Time 07:30 Accucheck Value: 347 Accucheck Value: 294 Accucheck Value: 376 Accucheck Value: 307 Lab Results-Last 24 Hours 01/08/17 01/08/17 Range/Units 05:22 05:22 WBC 8.1 (4.0-10.5) K/mm3 RBC 4.29 (4.1-5.4) M/mm3 Hgb 11.7 L (12.0-16.0) gm/dl Hct 37.9 (35-47) % MCV 88.3 (78-100) fl MCH 27.2 (26-32) pg MCHC 30.9 L (32-36) g/dl RDW 15.2 H (11.5-14.0) % Plt Count 156 (150-450) K/mm3 MPV 10.7 H (6-9.5) fl Gran % 53.3 (36.0-66.0) % Lymphocytes % 30.1 (24.0-44.0) % Monocytes % 8.0 (0.0-12.0) % Eosinophils % 8.4 H (0.00-5.0) % Basophils % 0.2 (0.0-0.4) % Basophils # 0.02 (0-0.4) Sodium 138 (136-145) mEq/L Potassium 4.5 (3.5-5.1) mEq/L Chloride 101 (98-107) mEq/L Carbon Dioxide 30.2 (21-32) mEq/L Anion Gap 11.2 (5-15) MEQ/L BUN 21 H (9-20) mg/dL Creatinine 1.22 (0.55-1.30) mg/dl Estimated GFR 46 ML/MIN Glucose 294 H (70-110) MG/DL Calcium 9.7 (8.5-10.1) mg/dL Multi-Disciplinary Progress Notes: Multi-Disciplinary Progress Notes 01/08/17 12:36 Nutrition Note by Stacey Joy F/u Note: Note regular diet continues with 75-100% PO intake. Pt with hx DM. glu 294-- some reduction. Recommend change to ADA diet. Both goals being met: ongoing. Will monitor, f/u prn. LTonia Joy MSRDCD Initialized on 01/08/17 12:36 - END OF NOTE 01/08/17 10:54 Case Management Note by AROLDO BARROSO SPOKE WITH PT TODAY AND SHE STATES SHE FEELS WONDERFUL. PT HAS [facility] AND WILL CONTINUE THIS SERVICE WHEN DISCHARGED. SHE ALSO HAS HOME OXYGEN WITH [facility] AND CHECKS HER BLOOD SUGAR FOUR TIMES A DAY. PT STATES SHE HAS A WALKER AT HOME AND THAT HER NEPHEW LIVES WITH HER AND WILL HELP WITH ANY OTHER NEEDS. WILL CONTINUE TO MONITOR FOR ANY OTHER POSSIBLE NEEDS AT DISCHARGE. Initialized on 01/08/17 10:54 - END OF NOTE 01/07/17 17:08 Physical Therapy Note by My Devi CONSISTENT IMPROVEMENT IN CELLULITIS SYMPTOMS RIGHT LEG WITH PALLIATIVE CARE : HIBICLENS SOAK, BARRIER OINTMENT TOPICAL, SUREPRESS + GAUZE ARSEN LAYERS WITH TUBIGRIP LIGHT COMPRESSION LAYER. TODAY TUBIGRIP STOCKINETTE SIZE REDUCED TO SIZE G FROM SIZE J. SEROUS SEEPING DRAINAGE DIMINISHED TO MODERATE. EPIDERMIS SLOUGHING DIMINISHED; 3-4 SMALL RAW AREAS REMAIN ANTERIOR LOWER CALF. IV ANTIBIOTICS CONTINUE. Initialized on 01/07/17 17:08 - END OF NOTE Assessment/Plan (1) Cellulitis Current Visit: Yes Status: Acute Qualifiers: Site of cellulitis: extremity Site of cellulitis of extremity: lower extremity Laterality: right Qualified Code(s): L03.115 - Cellulitis of right lower limb Assessment & Plan: cont vanc/levaquin. much improved, possibly home on 01/09 with home health for wound care Code(s): L03.90 - CELLULITIS, UNSPECIFIED (2) Diabetes mellitus Current Visit: Yes Status: Acute Qualifiers: Diabetes mellitus type: type 2 Diabetes mellitus complication status: without complication Diabetes mellitus termite control servicer insulin use: unspecified residential insulin use status Qualified Code(s): E11.9 - Type 2 diabetes mellitus without complications Code(s): E11.9 - TYPE 2 DIABETES MELLITUS WITHOUT COMPLICATIONS (3) Renal insufficiency Current Visit: Yes Status: Acute (4) Morbid obesity Current Visit: Yes Status: Chronic Qualifiers: Obesity type: due to excess calories Qualified Code(s): E66.01 - Morbid ( severe) obesity due to excess calories Code(s): E66.01 - MORBID (SEVERE) OBESITY DUE TO EXCESS CALORIES (5) Constipation Current Visit: Yes Status: Acute Qualifiers: Constipation type: slow transit constipation Qualified Code(s): K59.01 - Slow transit constipation Code(s): K59.00 - CONSTIPATION, UNSPECIFIED
[2017-01-08] MEDS ORDERED: Lantus Insulin SQ SCH (22:00)
[2017-01-08] MEDS: Cozaar 50 MG PO SCH (22:36)
[2017-01-08] MEDS: DULCOLAX 5 MG PO SCH (22:37)
[2017-01-09] MEDS: OXYCODONE-ACETAMINOPHEN 10-325 PO PRN (05:49)
[2017-01-09] MEDS: VANCOCIN 1 GM VIAL*** 2 GM in Sodium Chloride 0.9% 500 ML 500 ML IV SCH (05:50)
[2017-01-09] MEDS: Sodium Chloride 0.9% 10 ML FLUSH Syringe IV SCH (05:51)
[2017-01-09 05:56] LABS: ANION GAP 7.7 MEQ/L (5-15); Carbon Dioxide 32.4 mEq/L (21-32); Potassium 4.3 mEq/L (3.5-5.1)
[2017-01-09] MEDS: Advair Hfa 230/21 Mcg COMMON CANISTER IH SCH (07:03)
[2017-01-09] MEDS: BUMEX 1 MG PO SCH (07:53)
[2017-01-09] MEDS: Zocor 10MG PO SCH (07:53)
[2017-01-09] MEDS: Miralax Powder 17GM PACKET PO SCH (07:53)
[2017-01-09] MEDS: ENOXAPARIN SODIUM SQ SCH (07:54)
[2017-01-09] MEDS: Catapres 0.1 MG PO SCH (07:54)
[2017-01-09] MEDS: ISOPTIN SR 180MG PO SCH (07:54)
[2017-01-09] MEDS: NEURONTIN 300 MG PO SCH (07:55)
[2017-01-09] MEDS: Ditropan 5 MG PO SCH (07:55)
[2017-01-09] MEDS: NYSTOP POWDER 15 GM TOP SCH (07:56)
[2017-01-09 08:00] VITALS: BP 108/55; PULSE 68; O2SAT 98
[2017-01-09] MEDS: Ecotrin 325 MG PO SCH (08:00)
--- NOTE | 2017-01-09 08:14 | PCM.DS ---
Discharge Summary Date of Admission: 01/02/17 15:08 Admitting Physician: GABRIELLA ORTEGA Primary Care Provider: GABRIELLA ORTEGA Allergies Allergies sulfamethoxazole [From Bactrim] Allergy (Verified 01/02/17 15:26) itching, SOB trimethoprim [From Bactrim] Allergy (Verified 08/29/14 21:44) zinc Adverse Reaction (Mild, Verified 01/02/17 17:25) Rash zinc oxide Adverse Reaction (Mild, Verified 01/02/17 17:25) Rash satin tape Allergy (Uncoded 01/02/17 15:27) Hospital Summary - Hospital Course Hospital Course: patient was admitted with cellulitis RLE, doing much better with abx and wound care. - Vitals & Intake/Output Vital Signs: Vital Signs Temperature 97.9 F 01/09/17 07:58 Pulse Rate 68 01/09/17 07:58 Respiratory Rate 18 01/09/17 07:58 Blood Pressure 108/55 01/09/17 07:58 O2 Sat by Pulse Oximetry 98 01/09/17 07:58 Oxygen-Last Documented O2 Percentage 2 Liters = 28% Intake & Output: Intake & Output 01/06/17 01/07/17 01/08/17 01/09/17 11:59 11:59 11:59 11:59 Intake Total 1960 2780 1160 1800 Output Total 1900 800 600 Balance 60 4106 948 9442 Weight 192.913 kg 193.503 kg 193.865 kg 195.226 kg - Lab Result Diagrams: 01/08/17 05:22 01/09/17 05:38 Lab Results-Last 24 Hrs: Accuchecks Date 01/09/17 Date 01/08/17 Date 01/08/17 Date 01/08/17 Time 07:30 Time 22:00 Time 16:30 Time 11:52 Accucheck Value: 254 Accucheck Value: 292 Accucheck Value: 308 Accucheck Value: 347 Lab Results-Last 24 Hours 01/09/17 Range/Units 05:38 Sodium 138 (136-145) mEq/L Potassium 4.3 (3.5-5.1) mEq/L Chloride 102 (98-107) mEq/L Carbon Dioxide 32.4 H (21-32) mEq/L Anion Gap 7.7 (5-15) MEQ/L BUN 19 (9-20) mg/dL Creatinine 1.16 (0.55-1.30) mg/dl Estimated GFR 49 ML/MIN Glucose 254 H (70-110) MG/DL Calcium 9.4 (8.5-10.1) mg/dL Micro Results-Entire Visit: Microbiology 01/02/17 16:24 - Final Blood Not Reportable Blood Culture - Final NO GROWTH 01/02/17 16:15 - Final Blood Not Reportable Blood Culture - Final NO GROWTH 01/02/17 16:16 Gram Stain - Final Leg - Right Lower Wound Culture - Final ORGANISMS ISOLATED ARE CONSISTENT WITH NORMAL SKIN SPENSER MODERATE GROWTH, NO PREDOMINANT ORGANISM Accuchecks Date 01/09/17 Date 01/08/17 Date 01/08/17 Date 01/08/17 Time 07:30 Time 22:00 Time 16:30 Time 11:52 Accucheck Value: 254 Accucheck Value: 292 Accucheck Value: 308 Accucheck Value: 347 - Procedures and Test Procedures and Tests throughout Hospitalization: Therapy Orders & Screens 01/02/17 15:47 Respiratory Nebulizer Comment: Diagnosis: cellulitis right lower extremity Name of medication?: duonebs 2.5/0.5 mg every 6 hours prn 01/02/17 15:50 PT Eval & Treat (MD Order) ROUTINE Evaluate: Yes Treat: Yes Reason for Eval:: for wound care Diagnosis: cellulitis right lower extremity 01/02/17 16:45 OT Screen per Nursing Assess ONCE Comment: Protocol Order Physician Instructions: Greater than 3 points order OT Admission Screening Reason For Exam: Triggered on Admission Diagnosis: Cellulitis RLE Open Wound/Cellutlitis/Pressure Ulcers: Yes Acute Fx/ORIF/Change in wt bearing status: Yes Severe MUSCULOSKELETAL pain: No ADL Dysfunction: No Acute CVA w/Hemiparesis/Hemiplegia: No Decreased Functional Mobility/Strength: No Sprain/Strain: No Acute Post-op Mobility Dysfunction: No Total Points: 10 PT Screen per Nursing Assess ONCE Comment: Protocol Order Physician Instructions: Greater than 3 points order PT Admission Screenin Reason For Exam: Triggered on Admission Diagnosis: Cellulitis RLE Open Wound/Cellutlitis/Pressure Ulcers: Yes Acute Fx/ORIF/Change in wt bearing status: Yes Severe MUSCULOSKELETAL pain: No ADL Dysfunction: No Acute CVA w/Hemiparesis/Hemiplegia: No Decreased Functional Mobility/Strength: No Sprain/Strain: No Acute Post-op Mobility Dysfunction: No Total Points: 10 RT Screen per Nursing Assess ONCE Comment: Protocol Order Physician Instructions: Greater than 3 points order RT Admission Screen Reason For Exam: Triggered on Admission Diagnosis: Cellulitis RLE Diagnosis: Cellulitis RLE Pneumonia: No Home O2: Yes Asthma: No CHF: No Home CPAP/BIPAP: Yes Home Nebs/MDI: Yes Total Points: 15 01/02/17 19:00 Respiratory MDI Q12H Comment: Diagnosis: Cellulitis RLE 01/02/17 20:35 BiPap/CPAP Assessment ROUTINE Comment: CPAP AT NIGHT, [id number] WITH 2L O2 Diagnosis: Cellulitis RLE Oxygen NASAL CANNULA 2 lpm Comment: PT USES 2L AT HOME 23/03, AND 2L AT NIGHT WITH CPAP Diagnosis: Cellulitis RLE Discharge Exam General Appearance: no apparent distress, alert Skin Exam: normal color, warm, dry Respiratory Exam: normal breath sounds, lungs clear, No respiratory distress Cardiovascular Exam: regular rate/rhythm, normal heart sounds Gastrointestinal/Abdomen Exam: soft, No tenderness, No mass Extremity Exam: other (right lower extremity open areas healing, erythma improved) Final Diagnosis/Problem List - Final Discharge Diagnosis/Problem (1) Cellulitis Current Visit: Yes Status: Acute (2) Diabetes mellitus Current Visit: Yes Status: Acute (3) Renal insufficiency Current Visit: Yes Status: Acute (4) Morbid obesity Current Visit: Yes Status: Chronic (5) Constipation Current Visit: Yes Status: Acute - Discharge Disposition: Home, Self-Care Condition: Stable Prescriptions: New Levofloxacin [Levaquin] 500 mg PO DAILY #7 tablet Continue Insulin Detemir [Levemir] 40 units SQ HS Nitroglycerin [Nitroglycerin Patch] 1 patch TOP DAILY Clonidine HCl 0.1 mg [Catapres 0.1 MG] 0.1 mg PO TID Pravastatin Sodium 20 mg PO DAILY Losartan Potassium 100 mg PO QHS Verapamil HCl Sr 180 mg [Isoptin Sr 180Mg] 180 mg PO BID Bumetanide [Bumex] 2 mg PO DAILY Aspirin EC 325 mg [Ecotrin 325 MG] 325 mg PO DAILY Bisacodyl 5 mg [Dulcolax 5 mg] 20 mg PO QHS Nystatin 1 applic TOP BID Hydroxyzine HCl 25 mg [Atarax 25 mg] 25 mg PO TIDPRN PRN PRN Reason: Itching Oxybutynin Chloride 5 mg PO BID Gabapentin [Neurontin] 300 mg PO TID Insulin Aspart [NovoLOG Insulin] 0 units SQ UD Hydrocodone Bit/Acetaminophen [Vicodin 5-500 Tablet] 1 tablet PO Q4HPRN PRN # 150 tablet PRN Reason: Pain Follow up with: GABRIELLA ORTEGA MD [Primary Care Provider] - 1 Week Forms: Patient Portal Information
[2017-01-09] MEDS: Levofloxacin 500MG/100ML D5W 100 ML IV SCH (10:34)
[2017-01-09] MEDS: NovoLOG Insulin SQ PRN (12:29)
== END 2017-01-09 13:35 | disposition home health service (06) | DRG 603 ==
LOC: MED SURG 15:08
PROVIDERS: ADMIT Family Medicine; ATTEND Family Medicine
DX: L03.119 Cellulitis of unspecified part of limb (principal); E11.40 Type 2 diabetes mellitus with diabetic neuropathy, unspecified; N28.9 Disorder of kidney and ureter, unspecified; E66.01 Morbid (severe) obesity due to excess calories; K59.00 Constipation, unspecified; G47.33 Obstructive sleep apnea (adult) (pediatric); I10 Essential (primary) hypertension; I50.9 Heart failure, unspecified; M54.9 Dorsalgia, unspecified; G89.29 Other chronic pain; F45.42 Pain disorder with related psychological factors
CPT/HCPCS: 36415; 80048; 80053; 80202; 82962; 84134; 85025; 87040; 87070; 94640; 94660; 94760; A6457; J1650; J1956; J3370; A9270-GY

== ENCOUNTER 2022-09-19 16:36 | Inpatient (IN) | payer MEDICARE ==
--- NOTE | 2022-09-19 16:39 | ERPHSYRPT ---
- History of Present Illness Time Seen by Provider: 09/19/22 16:38 Source: patient, EMS, old records Exam Limitations: clinical condition Physician History: This is a 76-year-old morbidly obese female patient of Dr. Babcock and hydroelectric production technician Dr. Mejia who is transported to the emergency department by EMS because of "passing out. The patient arrives awake and alert for the most part. She may be mildly lethargic. However she wakes up quickly and can stay awake and alert while answering questions. Apparently, she was at home and doing well this morning. She even drove her family member to appointments. However, this afternoon she started to feel ill and felt like she was going to vomit and have diarrhea. She did not vomit and she did not have diarrhea. However she "passed out" on the toilet. The service was contacted. She was very lethargic. She arrives to the emergency department without chest pain and denies shortness of breath. Her blood sugar level in the emergency department is 227. Patient has a history of hyperlipidemia, hypertension, insulin-dependent diabetes, sleep apnea and chronic angina. She also denies abdominal pain at this time. Timing/Duration: today Severity: mild Associated Symptoms: nausea (To moderate), malaise, weakness, No vomiting, No abdominal pain, No shortness of breath, No chest pain Allergies/Adverse Reactions: sulfamethoxazole [From Bactrim] Allergy (Verified 01/02/17 15:26) itching, SOB trimethoprim [From Bactrim] Allergy (Verified 08/29/14 21:44) zinc Adverse Reaction (Mild, Verified 01/02/17 17:25) Rash zinc oxide Adverse Reaction (Mild, Verified 01/02/17 17:25) Rash satin tape Allergy (Uncoded 01/02/17 15:27) Home Medications: Clonidine HCl 0.1 mg [Clonidine 0.1 mg Tablet] 0.1 mg PO TID 05/05/14 [History] Insulin Detemir [Levemir] 40 units SQ HS 05/05/14 [History] Nitroglycerin [Nitroglycerin Patch] 1 patch TOP DAILY 05/05/14 [History] Pravastatin Sodium 20 mg PO DAILY 05/05/14 [History] Aspirin EC 325 mg [Ecotrin 325 MG] 325 mg PO DAILY 06/14/14 [History] Bumetanide [Bumex] 2 mg PO DAILY 06/14/14 [History] Losartan Potassium 100 mg PO QHS 06/14/14 [History] Verapamil HCl Sr [Isoptin Sr] 180 mg PO BID 06/14/14 [History] Bisacodyl 5 mg [Dulcolax 5 mg] 20 mg PO QHS 01/02/17 [History] Gabapentin [Neurontin] 300 mg PO TID 01/02/17 [History] Hydroxyzine HCl 25 mg [Atarax 25 mg] 25 mg PO TIDPRN PRN 01/02/17 [History] Insulin Aspart [NovoLOG Insulin] 0 units SQ UD 01/02/17 [History] Nystatin 1 applic TOP BID 01/02/17 [History] Oxybutynin Chloride 5 mg PO BID 01/02/17 [History] Hx Tetanus, Diphtheria Vaccination/Date Given: No Hx Influenza Vaccination/Date Given: (2012) Hx Pneumococcal Vaccination/Date Given: No Travel Risk - International Travel Have you traveled outside of the country in past 3 weeks: No - Coronavirus Screening Are you exhibiting any of the following symptoms?: Yes Symptoms: Vomiting/Diarrhea, Headaches/Body Aches/Fatigue Close contact with a COVID-19 positive Pt in past 14-21 Days: No - Review of Systems Constitutional: Weakness Eyes: No Symptoms Ears, Nose, & Throat: No Symptoms Respiratory: No Symptoms Cardiac: No Symptoms Abdominal/Gastrointestinal: Nausea, Vomiting Genitourinary Symptoms: No Symptoms Musculoskeletal: No Symptoms Skin: No Symptoms Neurological: No Symptoms Psychological: No Symptoms Endocrine: No Symptoms Hematologic/Lymphatic: No Symptoms - Past Medical History Pertinent Past Medical History: Yes Neurological History: Peripheral Neuropathy ENT History: No Pertinent History Cardiac History: Angina, Hypertension Respiratory History: Sleep Apnea Endocrine Medical History: Diabetes Type II Musculoskeletal History: Osteoarthritis GI Medical History: No Pertinent History History: No Pertinent History Psycho-Social History: No Pertinent History Female Reproductive Disorders: No Pertinent History Other Medical History: GASTRIC SLEEVE 07/2018, LOSS OF 140 LBS, PAST LEG WOUNDS. - Past Surgical History Past Surgical History: Yes Neuro Surgical History: No Pertinent History Cardiac: No Pertinent History Respiratory: No Pertinent History Gastrointestinal: Appendectomy Genitourinary: No Pertinent History Musculoskeletal: Other Female Surgical History: Hysterectomy, Other Other Surgical History: SEVERAL D&C'S. RIGHT HEAL SPUR removed - Social History Smoking Status: Never smoker Exposure to second hand smoke: Yes Drug Use: none Patient Lives Alone: No - Nursing Vital Signs Nursing Vital Signs: Initial Vital Signs Pulse Rate 95 H 09/19/22 16:37 Respiratory Rate 22 09/19/22 16:37 Blood Pressure 96/80 09/19/22 16:37 O2 Sat by Pulse Oximetry 97 09/19/22 16:37 Pain Scale Pain Intensity 2 - Physical Exam General Appearance: no apparent distress, alert, obese Eye Exam: PERRL/EOMI, eyes nml inspection Ears, Nose, Throat Exam: normal ENT inspection, moist mucous membranes Neck Exam: normal inspection, non-tender, supple, full range of motion Respiratory Exam: normal breath sounds, lungs clear, airway intact, No chest tenderness, No respiratory distress Cardiovascular Exam: regular rate/rhythm, normal heart sounds, normal peripheral pulses Gastrointestinal/Abdomen Exam: soft, normal bowel sounds, No tenderness Pelvic Exam: not done Rectal Exam: not done Back Exam: normal inspection, normal range of motion, No CVA tenderness Extremity Exam: normal range of motion, pelvis stable, pedal edema (Bilateral feet and ankles), other (Significant chronic venous stasis disease bilateral lower extremities) Neurologic Exam: alert, oriented x 3, cooperative, shade maker II-XII nml as tested, normal mood/affect, sensation nml Skin Exam: normal color, warm, dry Lymphatic Exam: No adenopathy SpO2 Interpretation: normal O2 Delivery: Room Air - Course Nursing assessment & vital signs reviewed: Yes EKG Interpreted by Me: RATE (95), Sinus Rhythm, NORMAL AXIS, NORMAL QRS, NORMAL ST-T, Other (Prolonged CT interval. No acute ischemic changes on this twelve- lead EKG.) Ordered Tests: Active Orders 24 hr Category Date Time Status Avionics Manager STAT Care 09/19/22 16:52 Active EKG-ER Only STAT Care 09/19/22 16:52 Active Urias [Catheter-Sebastian Urias] STAT Care 09/19/22 16:53 Active IV Insertion STAT Care 09/19/22 16:52 Active Pulse Oximetry (ED) STAT Care 09/19/22 16:52 Active CHEST WITH CONTRAST [CT] Stat Exams 09/19/22 19:42 Taken HEAD WITHOUT CONTRAST [CT] Stat Exams 09/19/22 16:53 Taken BLOOD CULTURE Stat Lab 09/19/22 18:44 Received BMP Stat Lab 09/19/22 19:00 Completed CBC W DIFF Stat Lab 09/19/22 16:40 Completed CMP Stat Lab 09/19/22 16:40 Completed CULTURE,URINE Stat Lab 09/19/22 16:40 Received D-DIMER QUANTITATIVE Stat Lab 09/19/22 16:40 Completed Lactic Acid Stat Lab 09/19/22 19:14 Completed NT PRO BNP Stat Lab 09/19/22 16:40 Completed TROPONIN Q4H Lab 09/19/22 16:40 Completed TROPONIN Q4H Lab 09/19/22 21:00 Ordered TROPONIN Q4H Lab 09/20/22 01:00 Ordered UA W/RFX UR CULTURE Stat Lab 09/19/22 16:40 Completed Urine Triage Profile Stat Lab 09/19/22 16:40 Completed Transfer Order Routine Transfer 09/19/22 Ordered Medication Summary Generic Name Dose Route Start Last Admin Trade Name Freq PRN Reason Stop Dose Admin Sodium Chloride 1,000 mls @ 100 mls/hr 09/19/22 17:00 09/19/22 17:30 Sodium Chloride 0.9% 1000 Ml IV 10/19/22 16:59 100 mls/hr .Q10H TED Administration Norepinephrine/Dextrose 8 mg in 250 mls @ 15 mls/hr 09/19/22 18:09 09/19/22 18:24 Norepinephrine 8 Mg/250 Ml-D5w IV 10/19/22 18:08 8 mcg/min .[id number] PRN 15 mls/hr HYPOTENSION Administration Protocol 8 MCG/MIN Sodium Chloride 1,000 mls @ 999 mls/hr 09/19/22 20:27 09/19/22 20:48 Sodium Chloride 0.9% 1000 Ml IV 09/19/22 21:27 999 mls/hr .Q1H1M STA Administration Discontinued Medications Generic Name Dose Route Start Last Admin Trade Name Freq PRN Reason Stop Dose Admin Acetaminophen 650 mg 09/19/22 19:38 09/19/22 19:41 Acetaminophen 325 Mg Tablet PO 09/19/22 19:39 650 mg STAT STA Administration Acetaminophen Confirm 09/19/22 19:41 Acetaminophen 325 Mg Tablet Administered 09/19/22 19:42 Dose 650 mg .ROUTE .STK-MED ONE Meropenem 1 gm/ Sodium 100 mls @ 200 mls/hr 09/19/22 18:09 09/19/22 18:24 Chloride IV 09/19/22 18:38 200 mls/hr STAT ONE Administration Sodium Chloride Confirm 09/19/22 18:15 Sodium Chloride 100ml Mini-Bag Plus Administered 09/19/22 18:16 Dose 100 mls @ ud IV .STK-MED ONE Sodium Chloride 1,000 mls @ 999 mls/hr 09/19/22 18:59 09/19/22 20:48 Sodium Chloride 0.9% 1000 Ml IV 09/19/22 19:59 Infused .Q1H1M STA Infusion Meropenem Confirm 09/19/22 18:14 Meropenem 1 Gm Vial Administered 09/19/22 18:15 Dose 1 gm IV .STK-MED ONE Meropenem Confirm 09/19/22 18:15 Meropenem 1 Gm Vial Administered 09/19/22 18:16 Dose 1 gm IV .STK-MED ONE Lab/Rad Data: Laboratory Result Diagrams 09/19/22 16:40 09/19/22 19:00 Laboratory Results 09/19/22 09/19/22 09/19/22 Range/Units 19:14 19:00 17:25 WBC (4.0-10.5) x10^3/uL RBC (4.1-5.4) x10^6/uL Hgb (12.0-16.0) g/dL Hct (35-47) % MCV (78-100) fL MCH (26-32) pg MCHC (32-36) g/dL RDW (11.5-14.0) % Plt Count (150-450) x10^3/uL MPV (7.5-11.0) fL Gran % (36.0-66.0) % Immature Gran % (Auto) (0.00-0.4) % Nucleat RBC Rel Count (0.00-0.1) % Eos # (Auto) (0-0.5) x10^3/uL Immature Gran # (Auto) (0.00-0.03) x10^3u/L Absolute Lymphs (auto) (1.0-4.6) x10^3/uL Absolute Monos (auto) (0.0-1.3) x10^3/uL Absolute Nucleated RBC (0.00-0.01) x10^3u/L Lymphocytes % (24.0-44.0) % Monocytes % (0.0-12.0) % Eosinophils % (0.00-5.0) % Basophils % (0.0-0.4) % Absolute Granulocytes (1.4-6.9) x10^3/uL Basophils # (0-0.4) x10^3/uL D-Dimer (0.0-0.50) mg/L Sodium 138 (137-145) mmol/L Potassium 4.1 (3.5-5.1) mmol/L Chloride 109 H (98-107) mmol/L Carbon Dioxide 13 L* (22-30) mmol/L Anion Gap 19.7 H (5-15) MEQ/L BUN 26 H (7-17) mg/dL Creatinine 1.11 H (0.52-1.04) mg/dL Estimated GFR 50.5 ML/MIN Glucose 201 H (74-106) mg/dL Lactic Acid 6.4 H (0.4-2.0) Calcium 7.9 L (8.4-10.2) mg/dL Total Bilirubin (0.2-1.3) mg/dL AST (14-36) U/L ALT (0-35) U/L Alkaline Phosphatase (38-126) U/L Ammonia (9-30) umol/L Troponin I (0.000-0.034) ng/mL NT-Pro-B Natriuret Pep (0-1800) pg/mL Serum Total Protein (6.3-8.2) g/dL Albumin (3.5-5.0) g/dL Urine Color (Yellow) Urine Appearance (Clear) Urine pH (4.6-8.0) Ur Specific Waterfall (1.005-1.030) Urine Protein (Negative) Urine Glucose (UA) (Negative) mg/dL Urine Ketones (Negative) Urine Blood (Negative) Urine Nitrite (Negative) Urine Bilirubin (Negative) Urine Urobilinogen (0.2) mg/dL Ur Leukocyte Esterase (Negative) U Hyaline Cast (Auto) (0-2) /LPF Urine Microscopic RBC (0-5) /HPF Urine Microscopic WBC (0-5) /HPF Ur Epithelial Cells (None Seen) /HPF Urine Bacteria (None Seen) /HPF Urine Culture Reflexed (NO) Urine Opiates Level (NEGATIVE) Ur Methadone (NEGATIVE) Urine Barbiturates (NEGATIVE) Ur Phencyclidine (PCP) (NEGATIVE) Urine Amphetamine (NEGATIVE) U Benzodiazepine Level (NEGATIVE) Urine Cocaine (NEGATIVE) Urine Marijuana (THC) (NEGATIVE) Influenza Type A Ag NEGATIVE (NEGATIVE) Influenza Type B Ag NEGATIVE (NEGATIVE) RSV (PCR) NEGATIVE (Negative) SARS-CoV-2 (PCR) NEGATIVE (NEGATIVE) 09/19/22 09/19/22 09/19/22 Range/Units 16:40 16:40 16:40 WBC (4.0-10.5) x10^3/uL RBC (4.1-5.4) x10^6/uL Hgb (12.0-16.0) g/dL Hct (35-47) % MCV (78-100) fL MCH (26-32) pg MCHC (32-36) g/dL RDW (11.5-14.0) % Plt Count (150-450) x10^3/uL MPV (7.5-11.0) fL Gran % (36.0-66.0) % Immature Gran % (Auto) (0.00-0.4) % Nucleat RBC Rel Count (0.00-0.1) % Eos # (Auto) (0-0.5) x10^3/uL Immature Gran # (Auto) (0.00-0.03) x10^3u/L Absolute Lymphs (auto) (1.0-4.6) x10^3/uL Absolute Monos (auto) (0.0-1.3) x10^3/uL Absolute Nucleated RBC (0.00-0.01) x10^3u/L Lymphocytes % (24.0-44.0) % Monocytes % (0.0-12.0) % Eosinophils % (0.00-5.0) % Basophils % (0.0-0.4) % Absolute Granulocytes (1.4-6.9) x10^3/uL Basophils # (0-0.4) x10^3/uL D-Dimer (0.0-0.50) mg/L Sodium (137-145) mmol/L Potassium (3.5-5.1) mmol/L Chloride (98-107) mmol/L Carbon Dioxide (22-30) mmol/L Anion Gap (5-15) MEQ/L BUN (7-17) mg/dL Creatinine (0.52-1.04) mg/dL Estimated GFR ML/MIN Glucose (74-106) mg/dL Lactic Acid (0.4-2.0) Calcium (8.4-10.2) mg/dL Total Bilirubin (0.2-1.3) mg/dL AST (14-36) U/L ALT (0-35) U/L Alkaline Phosphatase (38-126) U/L Ammonia 31 H (9-30) umol/L Troponin I (0.000-0.034) ng/mL NT-Pro-B Natriuret Pep (0-1800) pg/mL Serum Total Protein (6.3-8.2) g/dL Albumin (3.5-5.0) g/dL Urine Color Dark Yellow A (Yellow) Urine Appearance Turbid A (Clear) Urine pH 6.5 (4.6-8.0) Ur Specific Waterfall 1.025 (1.005-1.030) Urine Protein 30 (Negative) Urine Glucose (UA) >=1000 A (Negative) mg/dL Urine Ketones Negative (Negative) Urine Blood Negative (Negative) Urine Nitrite Negative (Negative) Urine Bilirubin Negative (Negative) Urine Urobilinogen 1.0 A (0.2) mg/dL Ur Leukocyte Esterase Small A (Negative) U Hyaline Cast (Auto) NONE SEEN (0-2) /LPF Urine Microscopic RBC 6-10 A (0-5) /HPF Urine Microscopic WBC 51-100 A (0-5) /HPF Ur Epithelial Cells None Seen (None Seen) /HPF Urine Bacteria Many A (None Seen) /HPF Urine Culture Reflexed ORDERED SEPARATELY (NO) Urine Opiates Level NEGATIVE (NEGATIVE) Ur Methadone NEGATIVE (NEGATIVE) Urine Barbiturates NEGATIVE (NEGATIVE) Ur Phencyclidine (PCP) NEGATIVE (NEGATIVE) Urine Amphetamine NEGATIVE (NEGATIVE) U Benzodiazepine Level NEGATIVE (NEGATIVE) Urine Cocaine NEGATIVE (NEGATIVE) Urine Marijuana (THC) NEGATIVE (NEGATIVE) Influenza Type A Ag (NEGATIVE) Influenza Type B Ag (NEGATIVE) RSV (PCR) (Negative) SARS-CoV-2 (PCR) (NEGATIVE) 09/19/22 09/19/22 09/19/22 Range/Units 16:40 16:40 16:40 WBC (4.0-10.5) x10^3/uL RBC (4.1-5.4) x10^6/uL Hgb (12.0-16.0) g/dL Hct (35-47) % MCV (78-100) fL MCH (26-32) pg MCHC (32-36) g/dL RDW (11.5-14.0) % Plt Count (150-450) x10^3/uL MPV (7.5-11.0) fL Gran % (36.0-66.0) % Immature Gran % (Auto) (0.00-0.4) % Nucleat RBC Rel Count (0.00-0.1) % Eos # (Auto) (0-0.5) x10^3/uL Immature Gran # (Auto) (0.00-0.03) x10^3u/L Absolute Lymphs (auto) (1.0-4.6) x10^3/uL Absolute Monos (auto) (0.0-1.3) x10^3/uL Absolute Nucleated RBC (0.00-0.01) x10^3u/L Lymphocytes % (24.0-44.0) % Monocytes % (0.0-12.0) % Eosinophils % (0.00-5.0) % Basophils % (0.0-0.4) % Absolute Granulocytes (1.4-6.9) x10^3/uL Basophils # (0-0.4) x10^3/uL D-Dimer 11.03 H* (0.0-0.50) mg/L Sodium 141 (137-145) mmol/L Potassium 3.7 (3.5-5.1) mmol/L Chloride 105 (98-107) mmol/L Carbon Dioxide 18 L (22-30) mmol/L Anion Gap 21.1 H (5-15) MEQ/L BUN 24 H (7-17) mg/dL Creatinine 1.22 H (0.52-1.04) mg/dL Estimated GFR 45.3 ML/MIN Glucose 275 H (74-106) mg/dL Lactic Acid (0.4-2.0) Calcium 9.2 (8.4-10.2) mg/dL Total Bilirubin 1.10 (0.2-1.3) mg/dL AST 59 H (14-36) U/L ALT 32 (0-35) U/L Alkaline Phosphatase 133 H (38-126) U/L Ammonia (9-30) umol/L Troponin I < 0.012 (0.000-0.034) ng/mL NT-Pro-B Natriuret Pep 911 (0-1800) pg/mL Serum Total Protein 7.8 (6.3-8.2) g/dL Albumin 4.5 (3.5-5.0) g/dL Urine Color (Yellow) Urine Appearance (Clear) Urine pH (4.6-8.0) Ur Specific Waterfall (1.005-1.030) Urine Protein (Negative) Urine Glucose (UA) (Negative) mg/dL Urine Ketones (Negative) Urine Blood (Negative) Urine Nitrite (Negative) Urine Bilirubin (Negative) Urine Urobilinogen (0.2) mg/dL Ur Leukocyte Esterase (Negative) U Hyaline Cast (Auto) (0-2) /LPF Urine Microscopic RBC (0-5) /HPF Urine Microscopic WBC (0-5) /HPF Ur Epithelial Cells (None Seen) /HPF Urine Bacteria (None Seen) /HPF Urine Culture Reflexed (NO) Urine Opiates Level (NEGATIVE) Ur Methadone (NEGATIVE) Urine Barbiturates (NEGATIVE) Ur Phencyclidine (PCP) (NEGATIVE) Urine Amphetamine (NEGATIVE) U Benzodiazepine Level (NEGATIVE) Urine Cocaine (NEGATIVE) Urine Marijuana (THC) (NEGATIVE) Influenza Type A Ag (NEGATIVE) Influenza Type B Ag (NEGATIVE) RSV (PCR) (Negative) SARS-CoV-2 (PCR) (NEGATIVE) 09/19/22 Range/Units 16:40 WBC 21.3 H (4.0-10.5) x10^3/uL RBC 5.17 (4.1-5.4) x10^6/uL Hgb 14.8 (12.0-16.0) g/dL Hct 48.4 H (35-47) % MCV 93.6 (78-100) fL MCH 28.6 (26-32) pg MCHC 30.6 L (32-36) g/dL RDW 15.1 H (11.5-14.0) % Plt Count 183 (150-450) x10^3/uL MPV 10.0 (7.5-11.0) fL Gran % 85.1 H (36.0-66.0) % Immature Gran % (Auto) 0.5 H (0.00-0.4) % Nucleat RBC Rel Count 0.0 (0.00-0.1) % Eos # (Auto) 0.03 (0-0.5) x10^3/uL Immature Gran # (Auto) 0.11 H (0.00-0.03) x10^3u/L Absolute Lymphs (auto) 2.26 (1.0-4.6) x10^3/uL Absolute Monos (auto) 0.74 (0.0-1.3) x10^3/uL Absolute Nucleated RBC 0.00 (0.00-0.01) x10^3u/L Lymphocytes % 10.6 L (24.0-44.0) % Monocytes % 3.5 (0.0-12.0) % Eosinophils % 0.1 (0.00-5.0) % Basophils % 0.2 (0.0-0.4) % Absolute Granulocytes 18.14 H (1.4-6.9) x10^3/uL Basophils # 0.04 (0-0.4) x10^3/uL D-Dimer (0.0-0.50) mg/L Sodium (137-145) mmol/L Potassium (3.5-5.1) mmol/L Chloride (98-107) mmol/L Carbon Dioxide (22-30) mmol/L Anion Gap (5-15) MEQ/L BUN (7-17) mg/dL Creatinine (0.52-1.04) mg/dL Estimated GFR ML/MIN Glucose (74-106) mg/dL Lactic Acid (0.4-2.0) Calcium (8.4-10.2) mg/dL Total Bilirubin (0.2-1.3) mg/dL AST (14-36) U/L ALT (0-35) U/L Alkaline Phosphatase (38-126) U/L Ammonia (9-30) umol/L Troponin I (0.000-0.034) ng/mL NT-Pro-B Natriuret Pep (0-1800) pg/mL Serum Total Protein (6.3-8.2) g/dL Albumin (3.5-5.0) g/dL Urine Color (Yellow) Urine Appearance (Clear) Urine pH (4.6-8.0) Ur Specific Waterfall (1.005-1.030) Urine Protein (Negative) Urine Glucose (UA) (Negative) mg/dL Urine Ketones (Negative) Urine Blood (Negative) Urine Nitrite (Negative) Urine Bilirubin (Negative) Urine Urobilinogen (0.2) mg/dL Ur Leukocyte Esterase (Negative) U Hyaline Cast (Auto) (0-2) /LPF Urine Microscopic RBC (0-5) /HPF Urine Microscopic WBC (0-5) /HPF Ur Epithelial Cells (None Seen) /HPF Urine Bacteria (None Seen) /HPF Urine Culture Reflexed (NO) Urine Opiates Level (NEGATIVE) Ur Methadone (NEGATIVE) Urine Barbiturates (NEGATIVE) Ur Phencyclidine (PCP) (NEGATIVE) Urine Amphetamine (NEGATIVE) U Benzodiazepine Level (NEGATIVE) Urine Cocaine (NEGATIVE) Urine Marijuana (THC) (NEGATIVE) Influenza Type A Ag (NEGATIVE) Influenza Type B Ag (NEGATIVE) RSV (PCR) (Negative) SARS-CoV-2 (PCR) (NEGATIVE) - Progress Progress: improved, re-examined Progress Note: 09/19/22 18:56 CT of the head without contrast shows no acute intracranial abnormality. There are chronic changes including chronic micro ischemic changes 09/19/22 20:50 CTA of the chest shows no evidence of pulmonary embolus in the large caliber pulmonary arteries. Small caliber pulmonary arteries could not be assessed. There is mild bibasilar dependent atelectasis of the lower lobes but no evaluation of infiltrate. Medical decision making: This patient's evaluation and medical decision making is a high complexity requiring evaluation of cardiac status with EKG and evaluation of heart enzymes and evaluation of and treatment of hypotension. Evaluation of the patient's lab work and treatment required placement of low- dose Levophed and intravenous fluid of normal saline. Patient is also septic and likely uroseptic is the source. Patient was placed on Primaxin and this will be continued in the ICU in the hospital. Patient has a Urias catheter in place. Patient had altered mental status upon arrival to the emergency department. Likely the secondary sepsis. We also need to evaluate her neurologically and this included CT scan of the head without contrast as well evaluation of her ammonia level. Reexamination of her at the time of transfer to the floor shows no abdominal pain. Patient states clinically, she is feeling much better. She does have a fever and this was treated with Tylenol. We will place her in the intensive care unit on low-dose Levophed which will be weaned off likely within the next 24 hours. I did speak with Dr. Gould. We formulated the above plan. We will continue her on adequate IV hydration and repeat labs in the morning. I spoke with family members and patient several times during her stay in the emergency department and updated them on the results of the radiographic and laboratory studies as well as the plans for admission intensive care unit here in the hospital. 09/19/22 20:57 Discussed with : Jericho Counseled pt/family regarding: lab results, diagnosis, rad results - Departure Departure Disposition: In-patient Admission Clinical Impression: Sepsis associated hypotension, Altered mental status Condition: Serious Critical Care Time: Yes Critical Care Time(excluding separately billable procedures): Critical 30-74 mins (50 minutes) Referrals: GABRIELLA BABCOCK MD [Primary Care Provider] - Follow up/PCP as directed
[2022-09-19 16:57] LABS: Absolute Neutrophil Ct (ANC) 18.14 x10^3/uL (1.4-6.9); BASOPHIL % 0.2 % (0.0-0.4); Basophil (Absolute #) 0.04 x10^3/uL (0-0.4); Eosinophil % 0.1 % (0.00-5.0); Eosinophil (Absolute #) 0.03 x10^3/uL (0-0.5); Hematocrit 48.4 % (35-47); Hemoglobin 14.8 g/dL (12.0-16.0); IMMATURE GRAN # 0.11 x10^3u/L (0.00-0.03); IMMATURE GRAN % 0.5 % (0.00-0.4); Lymphocyte (Absolute #) 2.26 x10^3/uL (1.0-4.6); Lymphocytes % 10.6 % (24.0-44.0); Mean Cell Volume 93.6 fL (78-100); Mean Corpuscular Hemoglobin 28.6 pg (26-32); Mean Corpuscular Hgb Concent. 30.6 g/dL (32-36); Monocyte (Absolute #) 0.74 x10^3/uL (0.0-1.3); Monocytes % 3.5 % (0.0-12.0); Neutrophil % 85.1 % (36.0-66.0); Platelet Count 183 x10^3/uL (150-450); Red Blood Count 5.17 x10^6/uL (4.1-5.4); Red Cell Distribution Width 15.1 % (11.5-14.0); White Blood Count 21.3 x10^3/uL (4.0-10.5)
[2022-09-19] MEDS ORDERED: Sodium Chloride 0.9% 1000 ML 1,000 ML IV SCH (17:00)
[2022-09-19 17:16] LABS: ALBUMIN 4.5 g/dL (3.5-5.0); ANION GAP 21.1 MEQ/L (5-15); BILIRUBIN,TOTAL 1.1 mg/dL (0.2-1.3); Calcium 9.2 mg/dL (8.4-10.2); Creatinine 1 1.22 mg/dL (0.52-1.04); EST GLOMERULAR FILTRATION RATE 45.3 ML/MIN; Potassium 3.7 mmol/L (3.5-5.1); Total Protein 7.8 g/dL (6.3-8.2)
[2022-09-19] MEDS ORDERED: Sodium Chloride 0.9% 1000 ML 1,000 ML ONE ×3 (17:29→20:47)
[2022-09-19 17:49] LABS: Amphetamine,Urine NEGATIVE (NEGATIVE); Barbiturate,Urine NEGATIVE (NEGATIVE); Benzodiazepine,Urine NEGATIVE (NEGATIVE); Cocaine,Urine NEGATIVE (NEGATIVE); Methadone,Urine NEGATIVE (NEGATIVE); Opiate,Urine NEGATIVE (NEGATIVE); PCP,Urine NEGATIVE (NEGATIVE); THC,Urine NEGATIVE (NEGATIVE)
[2022-09-19] MEDS ORDERED: Merrem 1 GM in Sodium Chloride 100ML MINI-BAG PLUS 100 ML IV ONE (18:09)
[2022-09-19] MEDS ORDERED: NOREPINEPHRINE 8 MG/250 ML-D5W 8 MG/250 ML PLAST..BAG IV PRN (18:09)
[2022-09-19] MEDS ORDERED: Merrem IV ONE ×2 (18:14→18:15)
[2022-09-19] MEDS ORDERED: NOREPINEPHRINE 8 MG/250 ML-D5W 8 MG/250 ML PLAST..BAG IV ONE (18:14)
[2022-09-19] MEDS ORDERED: Sodium Chloride 100ML MINI-BAG PLUS 100 ML IV ONE (18:15)
[2022-09-19 18:16] LABS: ADD URINE CULTURE? ORDERED SEPARATELY (NO); Appearance Turbid (Clear); Bacteria Many /HPF (None Seen); Bilirubin Negative (Negative); Blood Negative (Negative); Epithelial Cells None Seen /HPF (None Seen); Glucose, Urine >=1000 mg/dL (Negative); Hyaline Casts NONE SEEN /LPF (0-2); Ketones Negative (Negative); Leukocyte Esterase Small (Negative); Nitrite Negative (Negative); Ph 6.5 (4.6-8.0); Protein,Urine Dip 30 (Negative); Specific Gravity 1.025 (1.005-1.030); WBC 51-100 /HPF (0-5)
[2022-09-19 18:48] LABS: INFLUENZA A NEGATIVE (NEGATIVE); INFLUENZA B NEGATIVE (NEGATIVE); RESPIRATORY SYNCTIAL VIRUS NEGATIVE (Negative); SARS-CoV-2 Xpert Express NEGATIVE (NEGATIVE)
[2022-09-19] MEDS ORDERED: Sodium Chloride 0.9% 1000 ML 1,000 ML IV STA ×2 (18:59→20:27)
[2022-09-19 19:32] LABS: ANION GAP 19.7 MEQ/L (5-15); Calcium 7.9 mg/dL (8.4-10.2); Creatinine 1 1.11 mg/dL (0.52-1.04); EST GLOMERULAR FILTRATION RATE 50.5 ML/MIN; Potassium 4.1 mmol/L (3.5-5.1)
[2022-09-19] MEDS ORDERED: TYLENOL 325 MG PO STA (19:38)
[2022-09-19] MEDS ORDERED: TYLENOL 325 MG ONE (19:41)
[2022-09-19] MEDS ORDERED: MOTRIN 600 MG PO ONE (21:10)
[2022-09-19] MEDS ORDERED: MOTRIN 600 MG ONE (21:11)
[2022-09-19] MEDS ORDERED: TYLENOL 325 MG PO PRN (22:39)
[2022-09-19] MEDS ORDERED: HUMULIN R SQ PRN (22:39)
[2022-09-19] MEDS ORDERED: Zofran 4 MG/2 ML VIAL IV PRN (22:39)
[2022-09-19] MEDS: NOREPINEPHRINE 8 MG/250 ML-D5W 8 MG/250 ML PLAST..BAG IV PRN (22:40)
[2022-09-20] MEDS ORDERED: TYLENOL 325 MG ONE (00:07)
[2022-09-20] MEDS: Sodium Chloride 0.9% 1000 ML 1,000 ML IV SCH ×2 (00:09→05:47)
[2022-09-20] MEDS ORDERED: Merrem IV ONE (01:00)
[2022-09-20] MEDS ORDERED: Sodium Chloride 100ML MINI-BAG PLUS 100 ML IV ONE (01:00)
[2022-09-20] MEDS: Merrem 1 GM in Sodium Chloride 100ML MINI-BAG PLUS 100 ML IV SCH ×4 (01:03→22:13)
[2022-09-20] MEDS ORDERED: MOTRIN 600 MG PO PRN (01:23)
[2022-09-20 03:06] LABS: BASOPHIL % 0.3 % (0.0-0.4); Basophil (Absolute #) 0.05 x10^3/uL (0-0.4); Eosinophil (Absolute #) 0 x10^3/uL (0-0.5); Hematocrit 45.8 % (35-47); IMMATURE GRAN # 0.07 x10^3u/L (0.00-0.03); IMMATURE GRAN % 0.4 % (0.00-0.4); Lymphocyte (Absolute #) 0.72 x10^3/uL (1.0-4.6); Lymphocytes % 4.1 % (24.0-44.0); Mean Cell Volume 93.3 fL (78-100); Mean Corpuscular Hemoglobin 28.5 pg (26-32); Mean Corpuscular Hgb Concent. 30.6 g/dL (32-36); Mean Platelet Volume 10.6 fL (7.5-11.0); Monocyte (Absolute #) 0.65 x10^3/uL (0.0-1.3); Monocytes % 3.7 % (0.0-12.0); Neutrophil % 91.5 % (36.0-66.0); Platelet Count 163 x10^3/uL (150-450); Red Blood Count 4.91 x10^6/uL (4.1-5.4); Red Cell Distribution Width 15.5 % (11.5-14.0); White Blood Count 17.7 x10^3/uL (4.0-10.5)
[2022-09-20 03:22] LABS: ANION GAP 15.3 MEQ/L (5-15); Calcium 7.6 mg/dL (8.4-10.2); Creatinine 1 1.29 mg/dL (0.52-1.04); EST GLOMERULAR FILTRATION RATE 42.5 ML/MIN; Potassium 4.5 mmol/L (3.5-5.1); Total Protein 5.4 g/dL (6.3-8.2)
[2022-09-20] MEDS: MOTRIN 600 MG PO PRN ×3 (04:09→18:32)
[2022-09-20 05:12] LABS: 027 TOX PROD PRESUMPTIVE NEGATIVE (NEGATIVE); TOXIGENIC C. DIFF ORG NEGATIVE (NEGATIVE)
[2022-09-20] MEDS: Advair Hfa 115/21 Common canister IH SCH ×2 (06:55→17:43)
[2022-09-20] MEDS: TYLENOL 325 MG PO PRN ×3 (07:01→22:12)
--- NOTE | 2022-09-20 08:11 | XRAY ---
Indication: Syncopal episode. Acute mental status change. Multiple contiguous axial images obtained through the head without contrast. Comparison: None Age-appropriate global atrophy and mild periventricular degenerative micro-ischemia bilaterally. No acute intracranial hemorrhage, abnormal extra-axial fluid collection, or mass effect. Fourth ventricle is midline without hydrocephalus. Bony calvarium intact. Visualized paranasal sinuses and mastoid air cells are clear. Impression: Nonacute senile brain. Comment: Preliminary interpretation made by [facility]. No critical discrepancy.
--- NOTE | 2022-09-20 08:15 | XRAY ---
Indication: Short of breath. Elevated d-dimer. Multiple contiguous axial images obtained through the chest using 100 cc Isovue-370 contrast and PE protocol. Comparison: None Good opacification of the pulmonary arteries. However mild diffuse respiration artifact limits evaluation of the lobar and segmental branches. No pulmonary embolus. Heart borderline enlarged. Aorta is normal in course and caliber. Small subcarinal calcified node. No pathologic mediastinal/hilar lymphadenopathy. Small hiatal hernia. Fluid in mid to distal esophagus presumably from gastroesophageal reflux. Lungs demonstrates mild bilateral dependent atelectasis, left greater than right. No suspicious pulmonary mass, infiltrate, effusion, or pneumothorax. Bony thorax demonstrates osteopenia, mild/moderate degenerative changes throughout the spine, and mild dextroscoliosis. CT abdomen/pelvis reported separately. Impression: 1. Pulmonary embolus evaluation limited by respiration artifact. No obvious central pulmonary embolus. 2. Bilateral dependent atelectasis. No acute cardiopulmonary abnormalities. 3. Small hiatal hernia with GERD, chronic bony findings, and old granulomatous disease. Comment: Preliminary interpretation made by C. No critical discrepancy.
--- NOTE | 2022-09-20 08:24 | XRAY ---
Indication: Short of breath. Abdomen pain. Fever and diarrhea. Low blood pressure. Multiple contiguous axial images obtained through the abdomen and pelvis without contrast. Comparison: None CT chest reported separately. Patient's body habitus limits exam with abdominal panus not completely included in the [id number]. Noncontrasted stomach and small bowel loops appear unremarkable. Distended colon throughout up to 8 cm in diameter with synchronous fluid leveling favoring ileus. Descending and sigmoid demonstrates minimal pericolonic stranding favoring colitis. Tiny left colic and perihepatic free fluid. No walled off fluid collection or free air. Moderately distended gallbladder with sub-5 mm gallstone near the neck. No abnormal biliary distention. Appendectomy and hysterectomy reported. Incidental tiny hepatic calcified granuloma. Both kidneys excrete contrast from CT PE exam performed earlier in the day. Empty urinary bladder with Urias balloon catheter in situ. Remaining liver, pancreas, spleen, adrenal glands, and aorta are unremarkable. Osseous structures intact with osteopenia, moderate degenerative changes throughout the spine, and mild levorotoscoliosis. Impression: 1. Diffusely distended colon with fluid leveling and descending/sigmoid colitis. Tiny left colic free fluid presumed reactive. 2. Distended gallbladder with tiny gallstones. Cholecystitis not completely excluded in the right clinical setting given tiny perihepatic fluid. Gallbladder sonogram may yield further information. 3. Chronic bony findings. Comment: Preliminary interpretation made by C. No critical discrepancy.
[2022-09-20] MEDS: ENOXAPARIN SODIUM SQ SCH (09:43)
[2022-09-20] MEDS: NOREPINEPHRINE 8 MG/250 ML-D5W 8 MG/250 ML PLAST..BAG IV PRN ×3 (09:46→20:30)
--- NOTE | 2022-09-20 10:39 | PCM.HP ---
History of Present Illness - Chief Complaint Chief Complaint: passing out episode at home today History of Present Illness: is a 76 year old female.who is transported to the emergency department by EMS because of "passing out. The patient arrives awake and alert for the most part. She may be mildly lethargic. However she wakes up quickly and can stay awake and alert while answering questions. Apparently, she was at home and doing well this morning. She even drove her family member to appointments. However, this afternoon she started to feel ill and felt like she was going to vomit and have diarrhea. She did not vomit and she did not have diarrhea. However she "passed out" on the toilet. The service was contacted. She was very lethargic. She arrives to the emergency department without chest pain and denies shortness of breath. Her blood sugar level in the emergency department is 227. Patient has a history of hyperlipidemia, hypertension, insulin- dependent diabetes, sleep apnea and chronic angina. She also denies abdominal pain at this time. Timing/Duration: today Severity: mild Associated Symptoms: nausea (To moderate), malaise, weakness, No vomiting, No abdominal pain, No shortness of breath, No chest pain - Review of Systems Constitutional: Fever, Chills, Lethargy, Malaise, No Weakness Eyes: No Symptoms Ears, Nose, & Throat: No Symptoms Respiratory: Cough, Orthopnea, Short Of Breath Cardiac: Orthopnea, PND, No Chest Pain, No Edema, No Syncope Abdominal/Gastrointestinal: No Abdominal Pain, No Nausea, No Vomiting, No Diarrhea Genitourinary Symptoms: No Dysuria Musculoskeletal: No Back Pain, No Neck Pain Skin: No Rash Neurological: No Dizziness, No Focal Weakness, No Sensory Changes Psychological: No Symptoms Endocrine: No Symptoms Hematologic/Lymphatic: No Symptoms Immunological/Allergic: No Symptoms Medications & Allergies Home Medications: Home Medication List Nitroglycerin [Nitroglycerin Patch] 1 patch TOP DAILY 05/05/14 [History Confirmed 09/19/22] Pravastatin Sodium 20 mg PO QHS 05/05/14 [History Confirmed 09/19/22] Aspirin EC 325 mg [Ecotrin 325 MG] 325 mg PO DAILY 06/14/14 [History Confirmed 09/19/22] Bumetanide [Bumex] 2 mg PO DAILY 06/14/14 [History Confirmed 09/19/22] Verapamil HCl Sr [Isoptin Sr] 180 mg PO BID 06/14/14 [History Confirmed 09/19/22] Bisacodyl 5 mg [Dulcolax 5 mg] 5 mg PO BID PRN PRN 01/02/17 [History Confirmed 09/19/22] Hydroxyzine HCl 25 mg [Atarax 25 mg] 25 mg PO TIDPRN PRN 01/02/17 [History Confirmed 09/19/22] Insulin Aspart [NovoLOG Insulin] 9 units SQ AC 01/02/17 [History Confirmed 09/19/22] Nystatin 1 applic TOP DAILY 01/02/17 [History Confirmed 09/19/22] Clonidine HCl 0.1 mg [Clonidine 0.1 mg Tablet] 0.1 mg PO BID 09/19/22 [History Confirmed 09/19/22] Dapagliflozin Propanediol [Farxiga] 10 mg PO DAILY 09/19/22 [History Confirmed 09/19/22] Gabapentin 600 mg PO BID 09/19/22 [History Confirmed 09/19/22] Linaclotide [Linzess] 290 mcg PO DAILY 09/19/22 [History Confirmed 09/19/22] Lisinopril 5 mg [Zestril 5 MG] 5 mg PO QHS 09/19/22 [History Confirmed 09/19/22] Mirabegron [Myrbetriq] 50 mg PO DAILY 09/19/22 [History Confirmed 09/19/22] Omeprazole 20 mg PO DAILY 09/19/22 [History Confirmed 09/19/22] Ropinirole HCl 3 mg PO QHS 09/19/22 [History Confirmed 09/19/22] lisinopriL [Lisinopril] 20 mg PO QHS 09/19/22 [History Confirmed 09/19/22] Allergies/Adverse Reactions: Allergies Allergy/AdvReac Type Severity Reaction Status Date / Time sulfamethoxazole Allergy Verified 09/19/22 23:00 [From Bactrim] trimethoprim [From Bactrim] Allergy Verified 09/19/22 23:00 zinc AdvReac Mild Rash Verified 09/19/22 23:00 zinc oxide AdvReac Mild Rash Verified 01/20/23 23:00 satin tape Allergy Uncoded 09/19/22 23:00 - Past Medical History Past Medical History: Yes Neurological History: Peripheral Neuropathy ENT History: No Pertinent History Cardiac History: Angina, High Cholesterol, Hypertension Respiratory History: COPD, Sleep Apnea Endocrine Medical History: Diabetes Type II Musculoskelatal History: Fractures, Osteoarthritis, Other GI Medical History: GERD, Other History: Renal Disease Pyscho-Social History: No Pertinent History Reproductive Disorders: No Pertinent History Comment: hx bilateral leg wounds in past, scoliosis of lumbar spine - Female History Are you now?: No - Past Surgical History Past Surgical History: Yes Neuro Surgical History: No Pertinent History Cardiac History: No Pertinent History Respiratory Surgery: No Pertinent History GI Surgical History: Appendectomy Genitourinary Surgical Hx: No Pertinent History Musculskeletal Surgical Hx: Other Female Surgical History: Hysterectomy, Other Other Surgical History: D&C. right heel spur removed. gastric sleeve 2018 with 140 pound weight loss - Social History Smoking Status: Never smoker Exposure to second hand smoke: Yes Alcohol: None Drug Use: none - Physical Exam Vital Signs: Vital Signs - 24 hr Temp Pulse Resp BP Pulse Ox 09/20/22 09:56 100.6 F 80 20 92/57 95 09/20/22 09:00 100.8 F 86 19 90/54 94 L 09/20/22 08:00 84 89/55 09/20/22 07:45 101.5 F 85 20 113/62 96 09/20/22 06:56 87 20 96 09/20/22 06:50 101.5 F 82 21 80/59 97 09/20/22 06:24 101.5 F 85 20 76/55 96 09/20/22 05:54 101.7 F 83 22 90/67 95 09/20/22 04:54 102.4 F 84 24 74/47 94 L 09/20/22 04:00 102.4 F 83 24 81/60 94 L 09/20/22 03:00 102.4 F 86 27 H 90/48 95 09/20/22 02:00 102.4 F 86 25 H 76/43 96 09/20/22 01:32 102.8 F 88 26 H 90/61 93 L 09/20/22 00:55 102.6 F 85 24 98/67 93 L 09/20/22 00:00 88 24 94/56 95 09/19/22 23:40 89 19 96 09/19/22 23:37 101.8 F 90 20 118/65 98 09/19/22 23:30 86 19 109/69 95 09/19/22 23:00 87 23 132/74 96 09/19/22 22:40 125/80 09/19/22 22:04 87 15 131/89 09/19/22 21:01 100.8 F 95 H 22 87/71 96 09/19/22 20:50 97 H 22 95/83 96 09/19/22 20:26 101 H 28 H 122/86 09/19/22 19:26 95 H 17 119/69 09/19/22 19:13 98.4 F 96 H 15 09/19/22 18:11 97.0 F 86 20 70/41 97 09/19/22 17:38 97.0 F 80 22 89/43 97 09/19/22 16:37 95 H 22 96/80 97 General Appearance: no apparent distress, alert Neurologic Exam: alert, oriented x 3, cooperative, normal mood/affect, nml cerebellar function, nml station & gait, sensation nml, No motor deficits Eye Exam: PERRL/EOMI, eyes nml inspection Ears, Nose, Throat Exam: normal ENT inspection, TMs normal, pharynx normal, moist mucous membranes Neck Exam: normal inspection, non-tender, supple, full range of motion Respiratory Exam: diminished breath sounds, No respiratory distress Cardiovascular Exam: regular rate/rhythm, normal heart sounds, normal peripheral pulses Gastrointestinal/Abdomen Exam: soft, normal bowel sounds, No tenderness, No mass Back Exam: normal inspection, normal range of motion, No CVA tenderness, No vertebral tenderness Extremity Exam: normal inspection, normal range of motion, pelvis stable Skin Exam: normal color, warm, dry, No rash Lymphatic Exam: No adenopathy Results - Labs Lab/Micro Results: Lab Results-Last 24 Hours 09/19/22 09/19/22 09/19/22 Range/Units 16:40 16:40 16:40 WBC 21.3 H (4.0-10.5) x10^3/uL RBC 5.17 (4.1-5.4) x10^6/uL Hgb 14.8 (12.0-16.0) g/dL Hct 48.4 H (35-47) % MCV 93.6 (78-100) fL MCH 28.6 (26-32) pg MCHC 30.6 L (32-36) g/dL RDW 15.1 H (11.5-14.0) % Plt Count 183 (150-450) x10^3/uL MPV 10.0 (7.5-11.0) fL Gran % 85.1 H (36.0-66.0) % Immature Gran % (Auto) 0.5 H (0.00-0.4) % Nucleat RBC Rel Count 0.0 (0.00-0.1) % Eos # (Auto) 0.03 (0-0.5) x10^3/uL Immature Gran # (Auto) 0.11 H (0.00-0.03) x10^3u/L Absolute Lymphs (auto) 2.26 (1.0-4.6) x10^3/uL Absolute Monos (auto) 0.74 (0.0-1.3) x10^3/uL Absolute Nucleated RBC 0.00 (0.00-0.01) x10^3u/L Lymphocytes % 10.6 L (24.0-44.0) % Monocytes % 3.5 (0.0-12.0) % Eosinophils % 0.1 (0.00-5.0) % Basophils % 0.2 (0.0-0.4) % Absolute Granulocytes 18.14 H (1.4-6.9) x10^3/uL Basophils # 0.04 (0-0.4) x10^3/uL D-Dimer 11.03 H* (0.0-0.50) mg/L Sodium 141 (137-145) mmol/L Potassium 3.7 (3.5-5.1) mmol/L Chloride 105 (98-107) mmol/L Carbon Dioxide 18 L (22-30) mmol/L Anion Gap 21.1 H (5-15) MEQ/L BUN 24 H (7-17) mg/dL Creatinine 1.22 H (0.52-1.04) mg/dL Estimated GFR 45.3 ML/MIN Glucose 275 H (74-106) mg/dL Lactic Acid (0.4-2.0) Calcium 9.2 (8.4-10.2) mg/dL Total Bilirubin 1.10 (0.2-1.3) mg/dL AST 59 H (14-36) U/L ALT 32 (0-35) U/L Alkaline Phosphatase 133 H (38-126) U/L Ammonia (9-30) umol/L Troponin I (0.000-0.034) ng/mL NT-Pro-B Natriuret Pep 911 (0-1800) pg/mL Serum Total Protein 7.8 (6.3-8.2) g/dL Albumin 4.5 (3.5-5.0) g/dL Prealbumin (17.6-36.0) mg/dL Urine Color (Yellow) Urine Appearance (Clear) Urine pH (4.6-8.0) Ur Specific [place] (1.005-1.030) Urine Protein (Negative) Urine Glucose (UA) (Negative) mg/dL Urine Ketones (Negative) Urine Blood (Negative) Urine Nitrite (Negative) Urine Bilirubin (Negative) Urine Urobilinogen (0.2) mg/dL Ur Leukocyte Esterase (Negative) U Hyaline Cast (Auto) (0-2) /LPF Urine Microscopic RBC (0-5) /HPF Urine Microscopic WBC (0-5) /HPF Ur Epithelial Cells (None Seen) /HPF Urine Bacteria (None Seen) /HPF Urine Culture Reflexed (NO) Urine Opiates Level (NEGATIVE) Ur Methadone (NEGATIVE) Urine Barbiturates (NEGATIVE) Ur Phencyclidine (PCP) (NEGATIVE) Urine Amphetamine (NEGATIVE) U Benzodiazepine Level (NEGATIVE) Urine Cocaine (NEGATIVE) Urine Marijuana (THC) (NEGATIVE) C. difficile Screen (NEGATIVE) C.difficile 027-NAP1-B1 (NEGATIVE) Influenza Type A Ag (NEGATIVE) Influenza Type B Ag (NEGATIVE) RSV (PCR) (Negative) SARS-CoV-2 (PCR) (NEGATIVE) 09/19/22 09/19/22 09/19/22 Range/Units 16:40 16:40 16:40 WBC (4.0-10.5) x10^3/uL RBC (4.1-5.4) x10^6/uL Hgb (12.0-16.0) g/dL Hct (35-47) % MCV (78-100) fL MCH (26-32) pg MCHC (32-36) g/dL RDW (11.5-14.0) % Plt Count (150-450) x10^3/uL MPV (7.5-11.0) fL Gran % (36.0-66.0) % Immature Gran % (Auto) (0.00-0.4) % Nucleat RBC Rel Count (0.00-0.1) % Eos # (Auto) (0-0.5) x10^3/uL Immature Gran # (Auto) (0.00-0.03) x10^3u/L Absolute Lymphs (auto) (1.0-4.6) x10^3/uL Absolute Monos (auto) (0.0-1.3) x10^3/uL Absolute Nucleated RBC (0.00-0.01) x10^3u/L Lymphocytes % (24.0-44.0) % Monocytes % (0.0-12.0) % Eosinophils % (0.00-5.0) % Basophils % (0.0-0.4) % Absolute Granulocytes (1.4-6.9) x10^3/uL Basophils # (0-0.4) x10^3/uL D-Dimer (0.0-0.50) mg/L Sodium (137-145) mmol/L Potassium (3.5-5.1) mmol/L Chloride (98-107) mmol/L Carbon Dioxide (22-30) mmol/L Anion Gap (5-15) MEQ/L BUN (7-17) mg/dL Creatinine (0.52-1.04) mg/dL Estimated GFR ML/MIN Glucose (74-106) mg/dL Lactic Acid (0.4-2.0) Calcium (8.4-10.2) mg/dL Total Bilirubin (0.2-1.3) mg/dL AST (14-36) U/L ALT (0-35) U/L Alkaline Phosphatase (38-126) U/L Ammonia 31 H (9-30) umol/L Troponin I < 0.012 (0.000-0.034) ng/mL NT-Pro-B Natriuret Pep (0-1800) pg/mL Serum Total Protein (6.3-8.2) g/dL Albumin (3.5-5.0) g/dL Prealbumin (17.6-36.0) mg/dL Urine Color Dark Yellow A (Yellow) Urine Appearance Turbid A (Clear) Urine pH 6.5 (4.6-8.0) Ur Specific [place] 1.025 (1.005-1.030) Urine Protein 30 (Negative) Urine Glucose (UA) >=1000 A (Negative) mg/dL Urine Ketones Negative (Negative) Urine Blood Negative (Negative) Urine Nitrite Negative (Negative) Urine Bilirubin Negative (Negative) Urine Urobilinogen 1.0 A (0.2) mg/dL Ur Leukocyte Esterase Small A (Negative) U Hyaline Cast (Auto) NONE SEEN (0-2) /LPF Urine Microscopic RBC 6-10 A (0-5) /HPF Urine Microscopic WBC 51-100 A (0-5) /HPF Ur Epithelial Cells None Seen (None Seen) /HPF Urine Bacteria Many A (None Seen) /HPF Urine Culture Reflexed ORDERED SEPARATELY (NO) Urine Opiates Level (NEGATIVE) Ur Methadone (NEGATIVE) Urine Barbiturates (NEGATIVE) Ur Phencyclidine (PCP) (NEGATIVE) Urine Amphetamine (NEGATIVE) U Benzodiazepine Level (NEGATIVE) Urine Cocaine (NEGATIVE) Urine Marijuana (THC) (NEGATIVE) C. difficile Screen (NEGATIVE) C.difficile 027-NAP1-B1 (NEGATIVE) Influenza Type A Ag (NEGATIVE) Influenza Type B Ag (NEGATIVE) RSV (PCR) (Negative) SARS-CoV-2 (PCR) (NEGATIVE) 09/19/22 09/19/22 09/19/22 Range/Units 16:40 17:25 19:00 WBC (4.0-10.5) x10^3/uL RBC (4.1-5.4) x10^6/uL Hgb (12.0-16.0) g/dL Hct (35-47) % MCV (78-100) fL MCH (26-32) pg MCHC (32-36) g/dL RDW (11.5-14.0) % Plt Count (150-450) x10^3/uL MPV (7.5-11.0) fL Gran % (36.0-66.0) % Immature Gran % (Auto) (0.00-0.4) % Nucleat RBC Rel Count (0.00-0.1) % Eos # (Auto) (0-0.5) x10^3/uL Immature Gran # (Auto) (0.00-0.03) x10^3u/L Absolute Lymphs (auto) (1.0-4.6) x10^3/uL Absolute Monos (auto) (0.0-1.3) x10^3/uL Absolute Nucleated RBC (0.00-0.01) x10^3u/L Lymphocytes % (24.0-44.0) % Monocytes % (0.0-12.0) % Eosinophils % (0.00-5.0) % Basophils % (0.0-0.4) % Absolute Granulocytes (1.4-6.9) x10^3/uL Basophils # (0-0.4) x10^3/uL D-Dimer (0.0-0.50) mg/L Sodium 138 (137-145) mmol/L Potassium 4.1 (3.5-5.1) mmol/L Chloride 109 H (98-107) mmol/L Carbon Dioxide 13 L* (22-30) mmol/L Anion Gap 19.7 H (5-15) MEQ/L BUN 26 H (7-17) mg/dL Creatinine 1.11 H (0.52-1.04) mg/dL Estimated GFR 50.5 ML/MIN Glucose 201 H (74-106) mg/dL Lactic Acid (0.4-2.0) Calcium 7.9 L (8.4-10.2) mg/dL Total Bilirubin (0.2-1.3) mg/dL AST (14-36) U/L ALT (0-35) U/L Alkaline Phosphatase (38-126) U/L Ammonia (9-30) umol/L Troponin I (0.000-0.034) ng/mL NT-Pro-B Natriuret Pep (0-1800) pg/mL Serum Total Protein (6.3-8.2) g/dL Albumin (3.5-5.0) g/dL Prealbumin (17.6-36.0) mg/dL Urine Color (Yellow) Urine Appearance (Clear) Urine pH (4.6-8.0) Ur Specific [place] (1.005-1.030) Urine Protein (Negative) Urine Glucose (UA) (Negative) mg/dL Urine Ketones (Negative) Urine Blood (Negative) Urine Nitrite (Negative) Urine Bilirubin (Negative) Urine Urobilinogen (0.2) mg/dL Ur Leukocyte Esterase (Negative) U Hyaline Cast (Auto) (0-2) /LPF Urine Microscopic RBC (0-5) /HPF Urine Microscopic WBC (0-5) /HPF Ur Epithelial Cells (None Seen) /HPF Urine Bacteria (None Seen) /HPF Urine Culture Reflexed (NO) Urine Opiates Level NEGATIVE (NEGATIVE) Ur Methadone NEGATIVE (NEGATIVE) Urine Barbiturates NEGATIVE (NEGATIVE) Ur Phencyclidine (PCP) NEGATIVE (NEGATIVE) Urine Amphetamine NEGATIVE (NEGATIVE) U Benzodiazepine Level NEGATIVE (NEGATIVE) Urine Cocaine NEGATIVE (NEGATIVE) Urine Marijuana (THC) NEGATIVE (NEGATIVE) C. difficile Screen (NEGATIVE) C.difficile 027-NAP1-B1 (NEGATIVE) Influenza Type A Ag NEGATIVE (NEGATIVE) Influenza Type B Ag NEGATIVE (NEGATIVE) RSV (PCR) NEGATIVE (Negative) SARS-CoV-2 (PCR) NEGATIVE (NEGATIVE) 09/19/22 09/19/22 09/20/22 Range/Units 19:14 21:47 02:54 WBC (4.0-10.5) x10^3/uL RBC (4.1-5.4) x10^6/uL Hgb (12.0-16.0) g/dL Hct (35-47) % MCV (78-100) fL MCH (26-32) pg MCHC (32-36) g/dL RDW (11.5-14.0) % Plt Count (150-450) x10^3/uL MPV (7.5-11.0) fL Gran % (36.0-66.0) % Immature Gran % (Auto) (0.00-0.4) % Nucleat RBC Rel Count (0.00-0.1) % Eos # (Auto) (0-0.5) x10^3/uL Immature Gran # (Auto) (0.00-0.03) x10^3u/L Absolute Lymphs (auto) (1.0-4.6) x10^3/uL Absolute Monos (auto) (0.0-1.3) x10^3/uL Absolute Nucleated RBC (0.00-0.01) x10^3u/L Lymphocytes % (24.0-44.0) % Monocytes % (0.0-12.0) % Eosinophils % (0.00-5.0) % Basophils % (0.0-0.4) % Absolute Granulocytes (1.4-6.9) x10^3/uL Basophils # (0-0.4) x10^3/uL D-Dimer (0.0-0.50) mg/L Sodium (137-145) mmol/L Potassium (3.5-5.1) mmol/L Chloride (98-107) mmol/L Carbon Dioxide (22-30) mmol/L Anion Gap (5-15) MEQ/L BUN (7-17) mg/dL Creatinine (0.52-1.04) mg/dL Estimated GFR ML/MIN Glucose (74-106) mg/dL Lactic Acid 6.4 H (0.4-2.0) Calcium (8.4-10.2) mg/dL Total Bilirubin (0.2-1.3) mg/dL AST (14-36) U/L ALT (0-35) U/L Alkaline Phosphatase (38-126) U/L Ammonia (9-30) umol/L Troponin I < 0.012 < 0.012 (0.000-0.034) ng/mL NT-Pro-B Natriuret Pep (0-1800) pg/mL Serum Total Protein (6.3-8.2) g/dL Albumin (3.5-5.0) g/dL Prealbumin (17.6-36.0) mg/dL Urine Color (Yellow) Urine Appearance (Clear) Urine pH (4.6-8.0) Ur Specific [place] (1.005-1.030) Urine Protein (Negative) Urine Glucose (UA) (Negative) mg/dL Urine Ketones (Negative) Urine Blood (Negative) Urine Nitrite (Negative) Urine Bilirubin (Negative) Urine Urobilinogen (0.2) mg/dL Ur Leukocyte Esterase (Negative) U Hyaline Cast (Auto) (0-2) /LPF Urine Microscopic RBC (0-5) /HPF Urine Microscopic WBC (0-5) /HPF Ur Epithelial Cells (None Seen) /HPF Urine Bacteria (None Seen) /HPF Urine Culture Reflexed (NO) Urine Opiates Level (NEGATIVE) Ur Methadone (NEGATIVE) Urine Barbiturates (NEGATIVE) Ur Phencyclidine (PCP) (NEGATIVE) Urine Amphetamine (NEGATIVE) U Benzodiazepine Level (NEGATIVE) Urine Cocaine (NEGATIVE) Urine Marijuana (THC) (NEGATIVE) C. difficile Screen (NEGATIVE) C.difficile 027-NAP1-B1 (NEGATIVE) Influenza Type A Ag (NEGATIVE) Influenza Type B Ag (NEGATIVE) RSV (PCR) (Negative) SARS-CoV-2 (PCR) (NEGATIVE) 09/20/22 09/20/22 09/20/22 Range/Units 02:54 02:54 03:45 WBC 17.7 H (4.0-10.5) x10^3/uL RBC 4.91 (4.1-5.4) x10^6/uL Hgb 14.0 (12.0-16.0) g/dL Hct 45.8 (35-47) % MCV 93.3 (78-100) fL MCH 28.5 (26-32) pg MCHC 30.6 L (32-36) g/dL RDW 15.5 H (11.5-14.0) % Plt Count 163 (150-450) x10^3/uL MPV 10.6 (7.5-11.0) fL Gran % 91.5 H (36.0-66.0) % Immature Gran % (Auto) 0.4 (0.00-0.4) % Nucleat RBC Rel Count 0.0 (0.00-0.1) % Eos # (Auto) 0 (0-0.5) x10^3/uL Immature Gran # (Auto) 0.07 H (0.00-0.03) x10^3u/L Absolute Lymphs (auto) 0.72 L (1.0-4.6) x10^3/uL Absolute Monos (auto) 0.65 (0.0-1.3) x10^3/uL Absolute Nucleated RBC 0.00 (0.00-0.01) x10^3u/L Lymphocytes % 4.1 L (24.0-44.0) % Monocytes % 3.7 (0.0-12.0) % Eosinophils % 0.0 (0.00-5.0) % Basophils % 0.3 (0.0-0.4) % Absolute Granulocytes 16.20 H (1.4-6.9) x10^3/uL Basophils # 0.05 (0-0.4) x10^3/uL D-Dimer (0.0-0.50) mg/L Sodium 136 L (137-145) mmol/L Potassium 4.5 (3.5-5.1) mmol/L Chloride 109 H (98-107) mmol/L Carbon Dioxide 17 L (22-30) mmol/L Anion Gap 15.3 H (5-15) MEQ/L BUN 33 H (7-17) mg/dL Creatinine 1.29 H (0.52-1.04) mg/dL Estimated GFR 42.5 ML/MIN Glucose 187 H (74-106) mg/dL Lactic Acid 2.6 H (0.4-2.0) Calcium 7.6 L (8.4-10.2) mg/dL Total Bilirubin 1.00 (0.2-1.3) mg/dL AST 40 H (14-36) U/L ALT 22 (0-35) U/L Alkaline Phosphatase 85 (38-126) U/L Ammonia (9-30) umol/L Troponin I (0.000-0.034) ng/mL NT-Pro-B Natriuret Pep 620 (0-1800) pg/mL Serum Total Protein 5.4 L (6.3-8.2) g/dL Albumin 3.0 L (3.5-5.0) g/dL Prealbumin (17.6-36.0) mg/dL Urine Color (Yellow) Urine Appearance (Clear) Urine pH (4.6-8.0) Ur Specific [place] (1.005-1.030) Urine Protein (Negative) Urine Glucose (UA) (Negative) mg/dL Urine Ketones (Negative) Urine Blood (Negative) Urine Nitrite (Negative) Urine Bilirubin (Negative) Urine Urobilinogen (0.2) mg/dL Ur Leukocyte Esterase (Negative) U Hyaline Cast (Auto) (0-2) /LPF Urine Microscopic RBC (0-5) /HPF Urine Microscopic WBC (0-5) /HPF Ur Epithelial Cells (None Seen) /HPF Urine Bacteria (None Seen) /HPF Urine Culture Reflexed (NO) Urine Opiates Level (NEGATIVE) Ur Methadone (NEGATIVE) Urine Barbiturates (NEGATIVE) Ur Phencyclidine (PCP) (NEGATIVE) Urine Amphetamine (NEGATIVE) U Benzodiazepine Level (NEGATIVE) Urine Cocaine (NEGATIVE) Urine Marijuana (THC) (NEGATIVE) C. difficile Screen (NEGATIVE) C.difficile 027-NAP1-B1 (NEGATIVE) Influenza Type A Ag (NEGATIVE) Influenza Type B Ag (NEGATIVE) RSV (PCR) (Negative) SARS-CoV-2 (PCR) (NEGATIVE) 09/20/22 09/20/22 Range/Units 04:00 04:02 WBC (4.0-10.5) x10^3/uL RBC (4.1-5.4) x10^6/uL Hgb (12.0-16.0) g/dL Hct (35-47) % MCV (78-100) fL MCH (26-32) pg MCHC (32-36) g/dL RDW (11.5-14.0) % Plt Count (150-450) x10^3/uL MPV (7.5-11.0) fL Gran % (36.0-66.0) % Immature Gran % (Auto) (0.00-0.4) % Nucleat RBC Rel Count (0.00-0.1) % Eos # (Auto) (0-0.5) x10^3/uL Immature Gran # (Auto) (0.00-0.03) x10^3u/L Absolute Lymphs (auto) (1.0-4.6) x10^3/uL Absolute Monos (auto) (0.0-1.3) x10^3/uL Absolute Nucleated RBC (0.00-0.01) x10^3u/L Lymphocytes % (24.0-44.0) % Monocytes % (0.0-12.0) % Eosinophils % (0.00-5.0) % Basophils % (0.0-0.4) % Absolute Granulocytes (1.4-6.9) x10^3/uL Basophils # (0-0.4) x10^3/uL D-Dimer (0.0-0.50) mg/L Sodium (137-145) mmol/L Potassium (3.5-5.1) mmol/L Chloride (98-107) mmol/L Carbon Dioxide (22-30) mmol/L Anion Gap (5-15) MEQ/L BUN (7-17) mg/dL Creatinine (0.52-1.04) mg/dL Estimated GFR ML/MIN Glucose (74-106) mg/dL Lactic Acid (0.4-2.0) Calcium (8.4-10.2) mg/dL Total Bilirubin (0.2-1.3) mg/dL AST (14-36) U/L ALT (0-35) U/L Alkaline Phosphatase (38-126) U/L Ammonia (9-30) umol/L Troponin I (0.000-0.034) ng/mL NT-Pro-B Natriuret Pep (0-1800) pg/mL Serum Total Protein (6.3-8.2) g/dL Albumin (3.5-5.0) g/dL Prealbumin 15.87 L (17.6-36.0) mg/dL Urine Color (Yellow) Urine Appearance (Clear) Urine pH (4.6-8.0) Ur Specific [place] (1.005-1.030) Urine Protein (Negative) Urine Glucose (UA) (Negative) mg/dL Urine Ketones (Negative) Urine Blood (Negative) Urine Nitrite (Negative) Urine Bilirubin (Negative) Urine Urobilinogen (0.2) mg/dL Ur Leukocyte Esterase (Negative) U Hyaline Cast (Auto) (0-2) /LPF Urine Microscopic RBC (0-5) /HPF Urine Microscopic WBC (0-5) /HPF Ur Epithelial Cells (None Seen) /HPF Urine Bacteria (None Seen) /HPF Urine Culture Reflexed (NO) Urine Opiates Level (NEGATIVE) Ur Methadone (NEGATIVE) Urine Barbiturates (NEGATIVE) Ur Phencyclidine (PCP) (NEGATIVE) Urine Amphetamine (NEGATIVE) U Benzodiazepine Level (NEGATIVE) Urine Cocaine (NEGATIVE) Urine Marijuana (THC) (NEGATIVE) C. difficile Screen NEGATIVE (NEGATIVE) C.difficile [id number] PRESUMPTIVE NEGATIVE (NEGATIVE) Influenza Type A Ag (NEGATIVE) Influenza Type B Ag (NEGATIVE) RSV (PCR) (Negative) SARS-CoV-2 (PCR) (NEGATIVE) Microbiology 09/19/22 16:40 Urine Culture - Preliminary Catherized GRAM NEGATIVE ID AND SENSITIVITY PENDING - Radiology Impressions Radiology Exams & Impressions: Radiology Procedures Category Date Time Status ABDOMEN AND PELVIS W/0 CONTRAS [CT] Stat Exams 09/20/22 03:40 Completed CHEST WITH CONTRAST [CT] Stat Exams 09/19/22 19:42 Completed HEAD WITHOUT CONTRAST [CT] Stat Exams 09/19/22 16:[address]/ABDOMEN AND PELVIS W/0 CONTRAS Indication: Short of breath. Abdomen pain. Fever and diarrhea. Low blood pressure. Multiple contiguous axial images obtained through the abdomen and pelvis without contrast. Comparison: None CT chest reported separately. Patient's body habitus limits exam with abdominal panus not completely included in the [id number]. Noncontrasted stomach and small bowel loops appear unremarkable. Distended colon throughout up to 8 cm in diameter with synchronous fluid leveling favoring ileus. Descending and sigmoid demonstrates minimal pericolonic stranding favoring colitis. Tiny left colic and perihepatic free fluid. No walled off fluid collection or free air. Moderately distended gallbladder with sub-5 mm gallstone near the neck. No abnormal biliary distention. Appendectomy and hysterectomy reported. Incidental tiny hepatic calcified granuloma. Both kidneys excrete contrast from CT PE exam performed earlier in the day. Empty urinary bladder with Urias balloon catheter in situ. Remaining liver, pancreas, spleen, adrenal glands, and aorta are unremarkable. Osseous structures intact with osteopenia, moderate degenerative changes throughout the spine, and mild levorotoscoliosis. Impression: 1. Diffusely distended colon with fluid leveling and descending/sigmoid colitis. Tiny left colic free fluid presumed reactive. 2. Distended gallbladder with tiny gallstones. Cholecystitis not completely excluded in the right clinical setting given tiny perihepatic fluid. Gallbladder sonogram may yield further information. 3. Chronic bony findings. - Other Procedures and Tests Respiratory Therapy 09/19/22 22:39 Oxygen Nasal Cannula 2 lpm 09/19/22 23:51 Respiratory Therapy Assessment DAILY Assessment/Plan (1) Sepsis associated hypotension Current Visit: Yes Status: Acute Assessment & Plan: Chief Complaint Diagnosis passing out episode at home today Allergies Allergy/AdvReac Type Severity Reaction Status Date / Time sulfamethoxazole Allergy Verified 09/19/22 23:00 [From Bactrim] trimethoprim [From Bactrim] Allergy Verified 09/19/22 23:00 zinc AdvReac Mild Rash Verified 09/19/22 23:00 zinc oxide AdvReac Mild Rash Verified 09/19/22 23:00 satin tape Allergy Uncoded 09/19/22 23:00 Vital Signs (Last 24 hours) Temp Pulse Resp BP Pulse Ox 09/21/22 07:10 99 H 09/21/22 06:37 99 H 24 94 L 09/21/22 06:30 102.4 F 99 H 20 79/47 93 L 09/21/22 06:00 93/53 09/21/22 05:55 102.2 F 97 H 20 107/71 93 L 09/21/22 05:37 102.0 F 99 H 29 H 73/46 90 L 09/21/22 04:35 101.7 F 97 H 27 H 94/65 93 L 09/21/22 03:37 101.5 F 97 H 24 72/48 92 L 09/21/22 02:33 101.5 F 91 H 28 H 97/62 91 L 09/21/22 01:37 101.3 F 94 H 27 H 94/60 95 09/21/22 01:00 101.1 F 95 H 32 H 91/55 91 L 09/21/22 00:46 101.1 F 95 H 36 H 82/56 91 L 09/21/22 00:30 101.1 F 95 H 28 H 66/42 94 L 09/21/22 00:00 100.9 F 95 H 24 90/58 94 L 09/20/22 23:30 100.9 F 90 22 90/48 95 09/20/22 23:00 100.9 F 82 24 78/52 95 09/20/22 22:48 100.9 F 91 H 24 70/57 95 09/20/22 22:00 100.9 F 94 H 16 71/43 94 L 09/20/22 21:00 100.9 F 89 20 93 L 09/20/22 20:00 100.9 F 91 H 24 106/70 94 L 09/20/22 18:43 100.8 F 91 H 17 95/72 96 09/20/22 17:52 100.8 F 89 23 101/65 94 L 09/20/22 17:45 90 20 95 09/20/22 16:48 107/88 09/20/22 16:47 100.6 F 92 H 24 107/88 95 09/20/22 15:54 100.6 F 84 24 85/68 94 L 09/20/22 15:07 83/54 01/21/23 14:52 100.4 F 86 22 72/56 96 09/20/22 14:00 100.4 F 86 21 85/56 95 09/20/22 13:00 100.6 F 88 18 93/69 94 L 09/20/22 12:00 82 09/20/22 11:54 100.6 F 82 20 80/55 95 09/20/22 10:55 100.6 F 87 24 94/48 94 L 09/20/22 09:56 100.6 F 80 20 92/57 95 09/20/22 09:00 100.8 F 86 19 90/54 94 L 09/20/22 08:00 84 89/55 09/20/22 07:45 101.5 F 85 20 113/62 96 Home Medications Medication Instructions Recorded Confirmed Last Taken Type Clonidine HCl 0.1 mg [Clonidine 0.1 mg PO BID 09/19/22 09/19/22 09/19/22 10:00 History 0.1 mg Tablet] Dapagliflozin Propanediol [Farxiga] 10 mg PO DAILY 09/19/22 09/19/22 09/19/22 10:00 History Gabapentin 600 mg PO BID 09/19/22 09/19/22 09/19/22 10:00 History Linaclotide [Linzess] 290 mcg PO DAILY 09/19/22 09/19/22 09/19/22 10:00 History Lisinopril 5 mg [Zestril 5 5 mg PO QHS 09/19/22 09/19/22 09/18/22 22:00 History MG] Mirabegron [Myrbetriq] 50 mg PO DAILY 09/19/22 09/19/22 09/19/22 10:00 History Omeprazole 20 mg PO DAILY 09/19/22 09/19/22 09/19/22 10:00 History Ropinirole HCl 3 mg PO QHS 09/19/22 09/19/22 09/18/22 22:00 History lisinopriL [Lisinopril] 20 mg PO QHS 09/19/22 09/19/22 09/18/22 22:00 History Current Medications Generic Name Dose Route Start Last Admin Trade Name Freq PRN Reason Stop Dose Admin Acetaminophen 975 mg 09/20/22 03:43 09/21/22 04:02 Acetaminophen 325 Mg Tablet PO 10/20/22 03:37 975 mg Q6H PRN PRN Administration FEVER Aspirin 325 mg 09/20/22 14:00 09/20/22 13:50 Aspirin 325 Mg Tablet.Ec PO 10/20/22 13:59 Not Given DAILY TED Bisacodyl 5 mg 09/20/22 13:24 Bisacodyl 5 Mg Tablet.Ec PO 10/20/22 13:23 BID PRN PRN CONSTIPATION Bumetanide 2 mg 09/20/22 14:00 09/20/22 13:50 Bumetanide 1 Mg Tablet PO 10/20/22 13:59 Not Given DAILY TED Clonidine 0.1 mg 09/20/22 22:00 09/20/22 20:46 Clonidine Hcl 0.1 Mg Tablet PO 10/20/22 21:59 Not Given BID TED Enoxaparin Sodium 40 mg 09/20/22 10:00 09/20/22 09:43 Enoxaparin Sodium 40 Mg/0.4 Ml Syringe SQ 10/20/22 09:59 40 mg DAILY TED Administration Gabapentin 600 mg 09/20/22 14:00 09/20/22 22:12 Gabapentin 300 Mg Capsule PO 10/20/22 13:59 600 mg BID TED Administration Hydroxyzine HCl 25 mg 09/20/22 13:24 Hydroxyzine Hcl 25 Mg Tablet PO 10/20/22 13:23 TIDPRN PRN Leg Cramps Meropenem 1 gm/ Sodium 100 mls @ 200 mls/hr 09/19/22 22:39 09/21/22 05:03 Chloride IV 09/22/22 22:38 200 mls/hr Q8HT TED Administration Norepinephrine/Dextrose 8 mg in 250 mls @ 15 mls/hr 09/19/22 22:39 09/21/22 07:04 Norepinephrine 8 Mg/250 Ml-D5w IV 10/19/22 22:38 28 mcg/min .[id number] PRN 52.5 mls/hr HYPOTENSION Titration Protocol 8 MCG/MIN Lactated Ringer's 1,000 mls @ 150 mls/hr 09/20/22 12:00 09/21/22 00:39 Lactated Ringers IV 10/20/22 11:59 150 mls/hr .Q6H40M TED Administration Metronidazole 500 mg in 100 mls @ 200 mls/hr 09/20/22 12:00 09/21/22 06:03 Flagyl 500 Mg Ivpb IV 10/20/22 11:59 200 mls/hr Q6HT TED Administration Ibuprofen 600 mg 09/20/22 03:44 09/21/22 00:39 Ibuprofen 600 Mg Tablet PO 10/20/22 03:38 600 mg Q6H PRN PRN Administration FEVER Insulin Human Lispro 9 unit 09/20/22 16:30 09/21/22 07:03 Insulin Lispro 1 Unit SQ 10/20/22 16:29 Not Given AC TED Insulin Human Regular 0 unit 09/19/22 22:39 Insulin Regular, Human 1 Unit SQ 10/19/22 22:38 UD PRN HYPERGLYCEMIA Lisinopril 20 mg 09/20/22 22:00 09/20/22 20:48 Lisinopril 20 Mg Tablet PO 10/20/22 21:59 Not Given QHS TED Lisinopril 5 mg 09/20/22 22:00 09/20/22 20:48 Lisinopril 5 Mg Tablet PO 10/20/22 21:59 Not Given QHS TED Loperamide HCl 2 mg 09/20/22 11:55 09/20/22 15:00 Loperamide Hcl 2 Mg Capsule PO 10/20/22 11:54 2 mg PRN PRN Administration DIARRHEA Mirabegron 50 mg 09/20/22 14:00 09/20/22 13:50 Mirabegron 25 Mg Tab.Er.24h PO 10/20/22 13:59 Not Given DAILY TED Miscellaneous Information 1 each 09/20/22 14:45 Medication Intervention 1 Each Each 10/20/22 14:44 .RN TO CHECK TED Miscellaneous Information 1 each 09/20/22 14:45 Medication Intervention 1 Each Each 10/20/22 14:44 .RN TO CHECK TED Nitroglycerin 0.4 mg 09/20/22 15:00 09/20/22 14:53 Nitroglycerin 0.4 Mg Patch TOP 10/20/22 14:59 Not Given DAILY TED Non-Formulary Medication 1 each 09/20/22 22:00 09/20/22 20:47 Remove Patch 1 Each TOP 10/20/22 21:59 Not Given HS TED Nystatin 0 gm 09/20/22 14:00 09/20/22 13:56 Nystatin 15 Gm Powder TOP 10/20/22 13:59 1 gm DAILY TED Administration Ondansetron HCl 4 mg 09/19/22 22:39 Ondansetron Hcl 4 Mg/2 Ml Vial IV 10/19/22 22:38 Q6H PRN PRN NAUSEA/VOMITING Pantoprazole Sodium 40 mg 09/20/22 14:00 09/20/22 13:56 Protonix (Pantoprazole) 40 Mg Tablet PO 10/20/22 13:59 40 mg DAILY TED Administration Ropinirole HCl 3 mg 09/20/22 22:00 09/20/22 22:12 Ropinirole Hcl 2 Mg Tablet PO 10/20/22 21:59 3 mg QHS TED Administration Fluticasone/Salmeterol 2 puff 09/20/22 07:00 09/21/22 06:35 Fluticasone/Salmeterol 115/21 - 120 Puff Common Canister IH 10/20/22 06:59 2 puff BIDRT TED Administration Simvastatin 10 mg 09/20/22 22:00 09/20/22 22:12 Simvastatin 10 Mg Tablet PO 10/20/22 21:59 10 mg HS TED Administration Verapamil HCl 180 mg 09/20/22 22:00 09/20/22 20:46 Verapamil Hcl Sr 180 Mg Tablet.Sa PO 10/20/22 21:59 Not Given BID TED Discontinued Medications Generic Name Dose Route Start Last Admin Trade Name Freq PRN Reason Stop Dose Admin Acetaminophen 650 mg 09/19/22 19:38 09/19/22 19:41 Acetaminophen 325 Mg Tablet PO 09/19/22 19:39 650 mg STAT STA Administration Acetaminophen Confirm 09/19/22 19:41 Acetaminophen 325 Mg Tablet Administered 09/19/22 19:42 Dose 650 mg .ROUTE .STK-MED ONE Acetaminophen 650 mg 09/19/22 22:39 09/20/22 00:10 Acetaminophen 325 Mg Tablet PO 10/19/22 22:38 650 mg Q4H PRN PRN Administration PAIN, FEVER, HEADACHE Acetaminophen Confirm 09/20/22 00:07 Acetaminophen 325 Mg Tablet Administered 09/20/22 00:08 Dose 650 mg .ROUTE .STK-MED ONE Sodium Chloride 1,000 mls @ 100 mls/hr 09/19/22 17:00 09/19/22 17:30 Sodium Chloride 0.9% 1000 Ml IV 10/19/22 16:59 100 mls/hr .Q10H TED Administration Meropenem 1 gm/ Sodium 100 mls @ 200 mls/hr 09/19/22 18:09 09/19/22 18:24 Chloride IV 09/19/22 18:38 200 mls/hr STAT ONE Administration Norepinephrine/Dextrose 8 mg in 250 mls @ 15 mls/hr 09/19/22 18:09 09/19/22 18:24 Norepinephrine 8 Mg/250 Ml-D5w IV 10/19/22 18:08 8 mcg/min .[id number] PRN 15 mls/hr HYPOTENSION Administration Protocol 8 MCG/MIN Sodium Chloride Confirm 09/19/22 18:15 Sodium Chloride 100ml Mini-Bag Plus Administered 09/19/22 18:16 Dose 100 mls @ ud IV .STK-MED ONE Sodium Chloride 1,000 mls @ 999 mls/hr 09/19/22 18:59 09/19/22 20:48 Sodium Chloride 0.9% 1000 Ml IV 09/19/22 19:59 Infused .Q1H1M STA Infusion Sodium Chloride 1,000 mls @ 999 mls/hr 09/19/22 20:27 09/19/22 22:25 Sodium Chloride 0.9% 1000 Ml IV 09/19/22 21:27 Infused .Q1H1M STA Infusion Norepinephrine/Dextrose Confirm 09/19/22 18:14 Norepinephrine 8 Mg/250 Ml-D5w Administered 09/19/22 18:15 Dose 8 mg in 250 mls @ ud IV .STK-MED ONE Sodium Chloride 1,000 mls @ 125 mls/hr 09/19/22 22:39 09/20/22 05:47 Sodium Chloride 0.9% 1000 Ml IV 10/19/22 22:38 125 mls/hr .Q8H TED Administration Sodium Chloride Confirm 09/20/22 01:00 Sodium Chloride 100ml Mini-Bag Plus Administered 09/20/22 01:01 Dose 100 mls @ ud IV .STK-MED ONE Ibuprofen 600 mg 09/19/22 21:10 09/19/22 21:12 Ibuprofen 600 Mg Tablet PO 09/19/22 21:11 600 mg STAT ONE Administration Ibuprofen Confirm 09/19/22 21:11 Ibuprofen 600 Mg Tablet Administered 09/19/22 21:12 Dose 600 mg .ROUTE .STK-MED ONE Ibuprofen 600 mg 09/20/22 01:23 Ibuprofen 600 Mg Tablet PO 10/20/22 01:22 TIDP PRN MODERATE PAIN Meropenem Confirm 09/19/22 18:14 Meropenem 1 Gm Vial Administered 09/19/22 18:15 Dose 1 gm IV .STK-MED ONE Meropenem Confirm 09/19/22 18:15 Meropenem 1 Gm Vial Administered 09/19/22 18:16 Dose 1 gm IV .STK-MED ONE Meropenem Confirm 09/20/22 01:00 Meropenem 1 Gm Vial Administered 09/20/22 01:01 Dose 1 gm IV .STK-MED ONE Non-Formulary Medication 1 each 09/20/22 11:46 09/20/22 12:11 Pharmacy Dosing Request MC 09/20/22 11:47 1 each STAT ONE Administration Intake & Output (Last 24 hours) 09/18/22 09/19/22 09/20/22 09/21/22 11:59 11:59 11:59 11:59 Intake Total 5030 4567 Output Total 850 1275 Balance 4180 3292 Weight 139.5 kg Microbiology Results (Last 24 hours) 09/19/22 18:44 Blood Blood Culture Gram Stain - Pending 09/19/22 18:44 Blood Blood Culture - Preliminary NO GROWTH TO DATE 09/19/22 16:40 Catherized Urine Culture - Preliminary GRAM NEGATIVE ID AND SENSITIVITY PENDING Laboratory Results (Last 24 hours) 09/21/22 09/21/22 09/21/22 06:45 06:36 06:36 WBC 16.9 H RBC 5.12 Hgb 14.6 Hct 45.8 MCV 89.5 MCH 28.5 MCHC 31.9 L RDW 15.8 H Plt Count 170 MPV 10.6 Gran % 83.3 H Immature Gran % (Auto) 1.3 H Nucleat RBC Rel Count 0.0 Eos # (Auto) 0.23 Immature Gran # (Auto) 0.22 H Absolute Lymphs (auto) 1.10 Absolute Monos (auto) 1.19 Absolute Nucleated RBC 0.00 Lymphocytes % 6.5 L Monocytes % 7.0 Eosinophils % 1.4 Basophils % 0.5 Absolute Granulocytes 14.08 H Basophils # 0.09 Sodium 132 L Potassium 5.0 Chloride 111 H Carbon Dioxide 10 L* Anion Gap 16.2 H BUN 56 H Creatinine 1.65 H Estimated GFR 32.0 Glucose 160 H POC Glucometer 144 H Calcium 6.7 L Magnesium 2.9 H Total Bilirubin 0.80 AST 64 H ALT 24 Alkaline Phosphatase 86 Serum Total Protein 5.5 L Albumin 2.8 L 09/20/22 09/20/22 09/20/22 20:28 16:20 10:58 WBC RBC Hgb Hct MCV MCH MCHC RDW Plt Count MPV Gran % Immature Gran % (Auto) Nucleat RBC Rel Count Eos # (Auto) Immature Gran # (Auto) Absolute Lymphs (auto) Absolute Monos (auto) Absolute Nucleated RBC Lymphocytes % Monocytes % Eosinophils % Basophils % Absolute Granulocytes Basophils # Sodium Potassium Chloride Carbon Dioxide Anion Gap BUN Creatinine Estimated GFR Glucose POC Glucometer 144 H 160 H 163 H Calcium Magnesium Total Bilirubin AST ALT Alkaline Phosphatase Serum Total Protein Albumin Orders (Last 24 hours) Category Date Time Status NPO except Meds Diet 09/20/22 07:49 Active CBC W DIFF AM.LAB Lab 09/21/22 06:36 Completed CMP AM.LAB Lab 09/21/22 06:36 Completed MAG [MAGNESIUM] AM.LAB Lab 09/21/22 06:36 Completed Manual Differential NC Routine Lab 09/21/22 06:36 Completed POCT GLUCOSE Stat Lab 09/20/22 10:58 Completed POCT GLUCOSE Stat Lab 09/20/22 16:20 Completed POCT GLUCOSE Stat Lab 09/20/22 20:28 Completed POCT GLUCOSE Stat Lab 09/21/22 06:45 Completed Aspirin EC 325 mg [Ecotrin 325 MG] Med 09/20/22 14:00 Active 325 mg PO DAILY Bisacodyl 5 mg [Dulcolax 5 mg] Med 09/20/22 13:24 Active 5 mg PO BID PRN PRN Bumetanide 1 mg [Bumex 1 mg] Med 09/20/22 14:00 Active 2 mg PO DAILY Clonidine HCl 0.1 mg [Clonidine 0.1 mg Tablet] Med 09/20/22 22:00 Active 0.1 mg PO BID Enoxaparin Sodium [Enoxaparin Sodium] Med 09/20/22 10:00 Active 40 mg SQ DAILY Fluticasone/Salmeterol [Advair Hfa Common Med 09/20/22 07:00 Active canister*] 2 puff IH BIDRT Gabapentin [Neurontin ] Med 09/20/22 14:00 Active 600 mg PO BID Hydroxyzine HCl 25 mg [Atarax 25 mg] Med 09/20/22 13:24 Active 25 mg PO TIDPRN PRN Insulin Lispro [Humalog] Med 09/20/22 16:30 Active 9 unit SQ AC Lisinopril 20 mg [Zestril 20 MG] Med 09/20/22 22:00 Active 20 mg PO QHS Lisinopril 5 mg [Zestril 5 MG] Med 09/20/22 22:00 Active 5 mg PO QHS Loperamide HCl 2 mg [Imodium 2 mg] Med 09/20/22 11:55 Active 2 mg PO PRN PRN Medication Intervention Med 09/20/22 14:45 Active 1 each MC .RN TO CHECK Medication Intervention Med 09/20/22 14:45 Active 1 each MC .RN TO CHECK Metronidazole 500 mg Premix [Flagyl 500 mg Ivpb] Med 09/20/22 12:00 Active 500 mg in 100 ml IV Q6HT Mirabegron [Myrbetriq] Med 09/20/22 14:00 Active 50 mg PO DAILY Nitroglycerin 0.4 mg/Hr [Nitro-Dur 0.4 MG/HR] Med 09/20/22 15:00 Active 0.4 mg TOP DAILY Nystatin Powder 15 gm [Nystop Powder 15 gm] Med 09/20/22 14:00 Active See Dose Instructions TOP DAILY PANTOPRAZOLE 40 mg Tablet [Protonix 40MG Tablet] Med 09/20/22 14:00 Active 40 mg PO DAILY Pharmacy Dosing Request Med 09/20/22 11:46 Discontinued 1 each MC STAT ONE Remove Patch [Remove Patch Reminder] Med 09/20/22 22:00 Active 1 each TOP HS Ringers Solution,Lactated [Lactated Ringers] 1,000 ml Med 09/20/22 12:00 Active IV 150 mls/hr Ropinirole 2Mg [Requip 2Mg Tab] Med 09/20/22 22:00 Active 3 mg PO QHS Simvastatin 10 mg [Zocor 10MG] Med 09/20/22 22:00 Active 10 mg PO HS Verapamil HCl Sr [Isoptin Sr] Med 09/20/22 22:00 Active 180 mg PO BID Patient Care Notes (Last 24 hours) 09/21/22 06:24 Nursing Note by Hui Valenzuela [id number] for past hour patients respirations have changed although o2 sat has not. sat remains between 90-95. pt having pursed lip breathing. respiratory therapy consulted and evaluating patient now Initialized on 09/21/22 06:24 - END OF NOTE 09/20/22 11:45 (created 09/20/22 13:07) Nursing Note by Seble Martel dr at bedside rounding on pt. updated on pt continuous copious amounts of liquid diarrhea. new orders for lr @ 150, will add flagyl and imodium. Initialized on 09/20/22 13:07 - END OF NOTE Code(s): A41.9 - SEPSIS, UNSPECIFIED ORGANISM; I95.9 - HYPOTENSION, UNSPECIFIED (2) Sigmoid diverticulitis Current Visit: Yes Status: Acute Code(s): K57.32 - DVTRCLI OF LG INT W/O PERFORATION OR ABSCESS W/O BLEEDING (3) Altered mental status Current Visit: Yes Status: Acute Qualifiers: Altered mental status type: delirium Qualified Code(s): R41.0 - Disorientation, unspecified Code(s): R41.82 - ALTERED MENTAL STATUS, UNSPECIFIED (4) Diabetes mellitus Current Visit: No Status: Acute Qualifiers: Diabetes mellitus type: type 2 Diabetes mellitus complication status: with kidney complications Diabetes mellitus complication detail: with chronic kidney disease Chronic kidney disease stage: stage 3 (moderate) Code(s): E11.9 - TYPE 2 DIABETES MELLITUS WITHOUT COMPLICATIONS
[2022-09-20] MEDS ORDERED: PHARMACY DOSING REQUEST MC ONE (11:46)
[2022-09-20] MEDS: Lactated Ringers 1,000 ML IV SCH ×2 (12:01→17:02)
[2022-09-20] MEDS: IMODIUM 2 MG PO PRN ×4 (12:03→15:00)
[2022-09-20] MEDS: FLAGYL 500 MG IVPB 500 MG/100 ML BAG IV SCH ×2 (12:11→17:01)
[2022-09-20] MEDS ORDERED: DULCOLAX 5 MG PO PRN (13:24)
[2022-09-20] MEDS ORDERED: ATARAX 25 MG PO PRN (13:24)
[2022-09-20] MEDS: BUMEX 1 MG PO SCH (13:50)
[2022-09-20] MEDS: Ecotrin 325 MG PO SCH (13:50)
[2022-09-20] MEDS: MYRBETRIQ PO SCH (13:50)
[2022-09-20] MEDS: NEURONTIN PO SCH ×2 (13:50→22:12)
[2022-09-20] MEDS: HUMALOG SQ SCH (13:51)
[2022-09-20] MEDS: Protonix 40MG Tablet PO SCH (13:56)
[2022-09-20] MEDS: NYSTOP POWDER 15 GM TOP SCH (13:56)
[2022-09-20] MEDS ORDERED: MEDICATION INTERVENTION MC SCH ×2 (14:45)
[2022-09-20] MEDS: Nitro-Dur 0.4 MG/HR TOP SCH (14:53)
[2022-09-20] MEDS: ISOPTIN SR PO SCH (20:46)
[2022-09-20] MEDS: CLONIDINE 0.1 MG TABLET PO SCH (20:46)
[2022-09-20] MEDS ORDERED: REQUIP 2MG TAB PO SCH (22:00)
[2022-09-20] MEDS ORDERED: NON-FORMULARY ITEM (Pravastatin Sodium [Pravastatin Sodium] 20 MG Tablet) PO SCH (22:00)
[2022-09-20] MEDS ORDERED: Zocor 10MG PO SCH (22:00)
[2022-09-20] MEDS ORDERED: Zestril 5 MG PO SCH (22:00)
[2022-09-20] MEDS ORDERED: NON-FORMULARY ITEM (Ropinirole Hcl [Ropinirole Hcl] 3 MG Tablet) PO SCH (22:00)
[2022-09-20] MEDS ORDERED: Zestril 20 MG PO SCH (22:00)
[2022-09-20] MEDS ORDERED: NON-FORMULARY ITEM (Gabapentin [Gabapentin] 600 MG Tablet) PO SCH (22:00)
[2022-09-21] MEDS: MOTRIN 600 MG PO PRN ×2 (00:39→07:34)
[2022-09-21] MEDS: Lactated Ringers 1,000 ML IV SCH ×2 (00:39→10:11)
[2022-09-21] MEDS: FLAGYL 500 MG IVPB 500 MG/100 ML BAG IV SCH ×2 (00:40→06:03)
[2022-09-21] MEDS: TYLENOL 325 MG PO PRN (04:02)
[2022-09-21] MEDS: NOREPINEPHRINE 8 MG/250 ML-D5W 8 MG/250 ML PLAST..BAG IV PRN ×2 (04:14→08:45)
[2022-09-21] MEDS: Merrem 1 GM in Sodium Chloride 100ML MINI-BAG PLUS 100 ML IV SCH (05:03)
[2022-09-21] MEDS: Advair Hfa 115/21 Common canister IH SCH (06:35)
[2022-09-21 06:43] LABS: Absolute Neutrophil Ct (ANC) 14.08 x10^3/uL (1.4-6.9); BASOPHIL % 0.5 % (0.0-0.4); Basophil (Absolute #) 0.09 x10^3/uL (0-0.4); Eosinophil % 1.4 % (0.00-5.0); Eosinophil (Absolute #) 0.23 x10^3/uL (0-0.5); Hematocrit 45.8 % (35-47); Hemoglobin 14.6 g/dL (12.0-16.0); IMMATURE GRAN # 0.22 x10^3u/L (0.00-0.03); IMMATURE GRAN % 1.3 % (0.00-0.4); Lymphocytes % 6.5 % (24.0-44.0); Mean Cell Volume 89.5 fL (78-100); Mean Corpuscular Hemoglobin 28.5 pg (26-32); Mean Corpuscular Hgb Concent. 31.9 g/dL (32-36); Mean Platelet Volume 10.6 fL (7.5-11.0); Monocyte (Absolute #) 1.19 x10^3/uL (0.0-1.3); Neutrophil % 83.3 % (36.0-66.0); Platelet Count 170 x10^3/uL (150-450); Red Blood Count 5.12 x10^6/uL (4.1-5.4); Red Cell Distribution Width 15.8 % (11.5-14.0); White Blood Count 16.9 x10^3/uL (4.0-10.5)
[2022-09-21 06:54] LABS: ALBUMIN 2.8 g/dL (3.5-5.0); ANION GAP 16.2 MEQ/L (5-15); BILIRUBIN,TOTAL 0.8 mg/dL (0.2-1.3); Calcium 6.7 mg/dL (8.4-10.2); Creatinine 1 1.65 mg/dL (0.52-1.04); MAGNESIUM 2.9 mg/dL (1.6-2.3); Total Protein 5.5 g/dL (6.3-8.2)
[2022-09-21] MEDS: HUMALOG SQ SCH (07:03)
[2022-09-21] MEDS ORDERED: Lactated Ringers 1,000 ML IV ONE ×2 (07:26→07:49)
[2022-09-21] MEDS: IMODIUM 2 MG PO PRN ×2 (07:34→08:48)
[2022-09-21 07:56] VITALS: PULSE 100
--- NOTE | 2022-09-21 07:57 | PCM.NOTE ---
Date and Time: 09/21/22 0759 Subjective Assessment: Patient is more and more weak and lethargic. Patient blood pressure is in the range of 100-1 10 systolic while 50-60 diastolic with Levophed at 28 mcg/min. Patient is lethargic complaining of abdominal pain. Patient is easily arousable. [facility] call to have a bed available. I talked to hospitalist care and they have accepted patient awaiting transfer. - Review of Systems Constitutional: Lethargy, Weakness, No Fever, No Chills Eyes: No Symptoms Ears, Nose, & Throat: No Symptoms Respiratory: Orthopnea, No Cough, No Short Of Breath Cardiac: No Chest Pain, No Edema, No Syncope Abdominal/Gastrointestinal: No Abdominal Pain, No Nausea, No Vomiting, No Diarrhea Genitourinary Symptoms: No Dysuria Musculoskeletal: No Back Pain, No Neck Pain Skin: No Rash Neurological: No Dizziness, No Focal Weakness, No Sensory Changes Psychological: No Symptoms Endocrine: No Symptoms Hematologic/Lymphatic: No Symptoms Immunological/Allergic: No Symptoms Objective Exam General Appearance: moderate distress, alert Neurologic Exam: alert, No motor deficits Skin Exam: normal color, warm, dry Eye Exam: PERRL, EOMI, eyes nml inspection Ears, Nose, Throat Exam: normal ENT inspection, pharynx normal, moist mucous membranes Neck Exam: normal inspection, non-tender, supple, full range of motion Respiratory Exam: diminished breath sounds, crackles/rales, rhonchi, No respiratory distress Cardiovascular Exam: regular rate/rhythm, normal heart sounds Gastrointestinal/Abdomen Exam: soft, No tenderness, No mass Extremity Exam: normal inspection, normal range of motion Back Exam: normal inspection, normal range of motion, No CVA tenderness, No vertebral tenderness Pelvic Exam: deferred Rectal Exam: deferred OBJECTIVE DATA Vital Signs: Vital Signs - 24 hr Temp Pulse Resp BP Pulse Ox 09/21/22 07:10 99 H 09/21/22 06:37 99 H 24 94 L 09/21/22 06:30 102.4 F 99 H 20 79/47 93 L 09/21/22 06:00 93/53 09/21/22 05:55 102.2 F 97 H 20 107/71 93 L 09/21/22 05:37 102.0 F 99 H 29 H 73/46 90 L 09/21/22 04:35 101.7 F 97 H 27 H 94/65 93 L 09/21/22 03:37 101.5 F 97 H 24 72/48 92 L 09/21/22 02:33 101.5 F 91 H 28 H 97/62 91 L 09/21/22 01:37 101.3 F 94 H 27 H 94/60 95 09/21/22 01:00 101.1 F 95 H 32 H 91/55 91 L 09/21/22 00:46 101.1 F 95 H 36 H 82/56 91 L 09/21/22 00:30 101.1 F 95 H 28 H 66/42 94 L 09/21/22 00:00 100.9 F 95 H 24 90/58 94 L 09/20/22 23:30 100.9 F 90 22 90/48 95 09/20/22 23:00 100.9 F 82 24 78/52 95 09/20/22 22:48 100.9 F 91 H 24 70/57 95 09/20/22 22:00 100.9 F 94 H 16 71/43 94 L 09/20/22 21:00 100.9 F 89 20 93 L 09/20/22 20:00 100.9 F 91 H 24 106/70 94 L 09/20/22 18:43 100.8 F 91 H 17 95/72 96 09/20/22 17:52 100.8 F 89 23 101/65 94 L 09/20/22 17:45 90 20 95 09/20/22 16:48 107/88 09/20/22 16:47 100.6 F 92 H 24 107/88 95 09/20/22 15:54 100.6 F 84 24 85/68 94 L 09/20/22 15:07 83/54 09/20/22 14:52 100.4 F 86 22 72/56 96 09/20/22 14:00 100.4 F 86 21 85/56 95 09/20/22 13:00 100.6 F 88 18 93/69 94 L 09/20/22 12:00 82 09/20/22 11:54 100.6 F 82 20 80/55 95 09/20/22 10:55 100.6 F 87 24 94/48 94 L 09/20/22 09:56 100.6 F 80 20 92/57 95 01/21/23 09:00 100.8 F 86 19 90/54 94 L 09/20/22 08:00 84 89/55 Pain Assessment - Last Documented Pain Intensity 0 Pain Scale Used 0-10 Pain Scale Intake and Output: Intake & Output 09/18/22 09/19/22 09/20/22 09/21/22 11:59 11:59 11:59 11:59 Intake Total 5030 4567 Output Total 680 1275 Balance 4180 3292 Weight 139.5 kg Lab Results: Lab Results-Last 24 Hours 09/20/22 09/20/22 09/20/22 Range/Units 10:58 16:20 20:28 WBC (4.0-10.5) x10^3/uL RBC (4.1-5.4) x10^6/uL Hgb (12.0-16.0) g/dL Hct (35-47) % MCV (78-100) fL MCH (26-32) pg MCHC (32-36) g/dL RDW (11.5-14.0) % Plt Count (150-450) x10^3/uL MPV (7.5-11.0) fL Gran % (36.0-66.0) % Immature Gran % (Auto) (0.00-0.4) % Nucleat RBC Rel Count (0.00-0.1) % Eos # (Auto) (0-0.5) x10^3/uL Immature Gran # (Auto) (0.00-0.03) x10^3u/L Absolute Lymphs (auto) (1.0-4.6) x10^3/uL Absolute Monos (auto) (0.0-1.3) x10^3/uL Absolute Nucleated RBC (0.00-0.01) x10^3u/L Lymphocytes % (24.0-44.0) % Monocytes % (0.0-12.0) % Eosinophils % (0.00-5.0) % Basophils % (0.0-0.4) % Absolute Granulocytes (1.4-6.9) x10^3/uL Basophils # (0-0.4) x10^3/uL Sodium (137-145) mmol/L Potassium (3.5-5.1) mmol/L Chloride (98-107) mmol/L Carbon Dioxide (22-30) mmol/L Anion Gap (5-15) MEQ/L BUN (7-17) mg/dL Creatinine (0.52-1.04) mg/dL Estimated GFR ML/MIN Glucose (74-106) mg/dL POC Glucometer 163 H 160 H 144 H (74 to 106) mg/dL Calcium (8.4-10.2) mg/dL Magnesium (1.6-2.3) mg/dL Total Bilirubin (0.2-1.3) mg/dL AST (14-36) U/L ALT (0-35) U/L Alkaline Phosphatase (38-126) U/L Serum Total Protein (6.3-8.2) g/dL Albumin (3.5-5.0) g/dL 09/21/22 09/21/22 09/21/22 Range/Units 06:36 06:36 06:45 WBC 16.9 H (4.0-10.5) x10^3/uL RBC 5.12 (4.1-5.4) x10^6/uL Hgb 14.6 (12.0-16.0) g/dL Hct 45.8 (35-47) % MCV 89.5 (78-100) fL MCH 28.5 (26-32) pg MCHC 31.9 L (32-36) g/dL RDW 15.8 H (11.5-14.0) % Plt Count 170 (150-450) x10^3/uL MPV 10.6 (7.5-11.0) fL Gran % 83.3 H (36.0-66.0) % Immature Gran % (Auto) 1.3 H (0.00-0.4) % Nucleat RBC Rel Count 0.0 (0.00-0.1) % Eos # (Auto) 0.23 (0-0.5) x10^3/uL Immature Gran # (Auto) 0.22 H (0.00-0.03) x10^3u/L Absolute Lymphs (auto) 1.10 (1.0-4.6) x10^3/uL Absolute Monos (auto) 1.19 (0.0-1.3) x10^3/uL Absolute Nucleated RBC 0.00 (0.00-0.01) x10^3u/L Lymphocytes % 6.5 L (24.0-44.0) % Monocytes % 7.0 (0.0-12.0) % Eosinophils % 1.4 (0.00-5.0) % Basophils % 0.5 (0.0-0.4) % Absolute Granulocytes 14.08 H (1.4-6.9) x10^3/uL Basophils # 0.09 (0-0.4) x10^3/uL Sodium 132 L (137-145) mmol/L Potassium 5.0 (3.5-5.1) mmol/L Chloride 111 H (98-107) mmol/L Carbon Dioxide 10 L* (22-30) mmol/L Anion Gap 16.2 H (5-15) MEQ/L BUN 56 H (7-17) mg/dL Creatinine 1.65 H (0.52-1.04) mg/dL Estimated GFR 32.0 ML/MIN Glucose 160 H (74-106) mg/dL POC Glucometer 144 H (74 to 106) mg/dL Calcium 6.7 L (8.4-10.2) mg/dL Magnesium 2.9 H (1.6-2.3) mg/dL Total Bilirubin 0.80 (0.2-1.3) mg/dL AST 64 H (14-36) U/L ALT 24 (0-35) U/L Alkaline Phosphatase 86 (38-126) U/L Serum Total Protein 5.5 L (6.3-8.2) g/dL Albumin 2.8 L (3.5-5.0) g/dL Radiology Exams: Radiology Procedures Category Date Time Status ABDOMEN AND PELVIS W/0 CONTRAS [CT] Stat Exams 09/20/22 03:40 Completed CHEST WITH CONTRAST [CT] Stat Exams 09/19/22 19:42 Completed HEAD WITHOUT CONTRAST [CT] Stat Exams 09/19/22 16:53 Completed Assessment/Plan (1) Sepsis associated hypotension Current Visit: Yes Status: Acute Assessment & Plan: Patient is still remaining hypotensive. Blood pressure is in the range of 100- 110 systolic while 50-60 diastolic. Patient is on Levophed 28 mcg/min. Patient is on Merrem Flagyl and vancomycin which is added today. I talked to Dr. Honeycutt [facility]. They have accepted the patient's. We will transfer the patient as soon as we get bed assignment. Patient condition is fair but stable at the time of transfer. Code(s): A41.9 - SEPSIS, UNSPECIFIED ORGANISM; I95.9 - HYPOTENSION, UNSPECIFIED (2) Sigmoid diverticulitis Current Visit: Yes Status: Acute Assessment & Plan: Last Vital Signs Temp 102.8 F 09/21/22 07:55 Pulse 100 H 09/21/22 07:55 Resp 24 09/21/22 07:55 BP 82/53 09/21/22 07:55 Pulse Ox 94 L 09/21/22 07:55 Allergies sulfamethoxazole [From Bactrim] Allergy (Verified 09/19/22 23:00) itching, SOB trimethoprim [From Bactrim] Allergy (Verified 09/19/22 23:00) zinc Adverse Reaction (Mild, Verified 09/19/22 23:00) Rash zinc oxide Adverse Reaction (Mild, Verified 09/19/22 23:00) Rash satin tape Allergy (Uncoded 09/19/22 23:00) Active Medications Acetaminophen (Acetaminophen 325 Mg Tablet) 975 mg PO Q6H PRN PRN PRN Reason: FEVER Stop: 10/20/22 03:37 Last Admin: 09/21/22 04:02 Dose: 975 mg Aspirin (Aspirin 325 Mg Tablet.Ec) 325 mg PO DAILY [facility] Stop: 10/20/22 13:59 Last Admin: 09/20/22 13:50 Dose: Not Given Bisacodyl (Bisacodyl 5 Mg Tablet.Ec) 5 mg PO BID PRN PRN PRN Reason: CONSTIPATION Stop: 10/20/22 13:23 Bumetanide (Bumetanide 1 Mg Tablet) 2 mg PO DAILY [facility] Stop: 10/20/22 13:59 Last Admin: 09/20/22 13:50 Dose: Not Given Clonidine (Clonidine Hcl 0.1 Mg Tablet) 0.1 mg PO BID [facility] Stop: 10/20/22 21:59 Last Admin: 09/20/22 20:46 Dose: Not Given Enoxaparin Sodium (Enoxaparin Sodium 40 Mg/0.4 Ml Syringe) 40 mg SQ DAILY [facility] Stop: 10/20/22 09:59 Last Admin: 09/20/22 09:43 Dose: 40 mg Gabapentin (Gabapentin 300 Mg Capsule) 600 mg PO BID [facility] Stop: 10/20/22 13:59 Last Admin: 09/20/22 22:12 Dose: 600 mg Hydroxyzine HCl (Hydroxyzine Hcl 25 Mg Tablet) 25 mg PO TIDPRN PRN PRN Reason: Leg Cramps Stop: 10/20/22 13:23 Meropenem 1 gm/ Sodium (Chloride) 100 mls @ 200 mls/hr IV Q8HT [facility] Stop: 09/22/22 22:38 Last Admin: 09/21/22 05:03 Dose: 200 mls/hr Norepinephrine/Dextrose (Norepinephrine 8 Mg/250 Ml-D5w) 8 mg in 250 mls @ 15 mls/hr IV .[id number] PRN; Protocol PRN Reason: HYPOTENSION Stop: 10/19/22 22:38 Last Titration: 09/21/22 07:04 Dose: 28 mcg/min, 52.5 mls/hr Lactated Ringer's (Lactated Ringers) 1,000 mls @ 150 mls/hr IV .Q6H40M TED Stop: 10/20/22 11:59 Last Admin: 09/21/22 00:39 Dose: 150 mls/hr Metronidazole (Flagyl 500 Mg Ivpb) 500 mg in 100 mls @ 200 mls/hr IV Q6HT [facility] Stop: 10/20/22 11:59 Last Admin: 09/21/22 06:03 Dose: 200 mls/hr Lactated Ringer's (Lactated Ringers) 1,000 mls @ 999 mls/hr IV .Q1H1M ONE Stop: 09/21/22 08:26 Last Admin: 09/21/22 07:48 Dose: 999 mls/hr Lactated Ringer's (Lactated Ringers) 1,000 mls @ 999 mls/hr IV .Q1H1M ONE Stop: 09/21/22 08:49 Ibuprofen (Ibuprofen 600 Mg Tablet) 600 mg PO Q6H PRN PRN PRN Reason: FEVER Stop: 10/20/22 03:38 Last Admin: 09/21/22 07:34 Dose: 600 mg Insulin Human Lispro (Insulin Lispro 1 Unit) 9 unit SQ AC [facility] Stop: 10/20/22 16:29 Last Admin: 09/21/22 07:03 Dose: Not Given Insulin Human Regular (Insulin Regular, Human 1 Unit) 0 unit SQ UD PRN PRN Reason: HYPERGLYCEMIA Stop: 10/19/22 22:38 Lisinopril (Lisinopril 20 Mg Tablet) 20 mg PO QHS TED Stop: 10/20/22 21:59 Last Admin: 09/20/22 20:48 Dose: Not Given Lisinopril (Lisinopril 5 Mg Tablet) 5 mg PO QHS TED Stop: 10/20/22 21:59 Last Admin: 09/20/22 20:48 Dose: Not Given Loperamide HCl (Loperamide Hcl 2 Mg Capsule) 2 mg PO PRN PRN PRN Reason: DIARRHEA Stop: 10/20/22 11:54 Last Admin: 09/21/22 07:34 Dose: 2 mg Mirabegron (Mirabegron 25 Mg Tab.Er.24h) 50 mg PO DAILY TED Stop: 10/20/22 13:59 Last Admin: 09/20/22 13:50 Dose: Not Given Miscellaneous Information (Medication Intervention 1 Each Each) 1 each MC .RN TO CHECK TED Stop: 10/20/22 14:44 Miscellaneous Information (Medication Intervention 1 Each Each) 1 each MC .RN TO CHECK [facility] Stop: 10/20/22 14:44 Nitroglycerin (Nitroglycerin 0.4 Mg Patch) 0.4 mg TOP DAILY TED Stop: 10/20/22 14:59 Last Admin: 09/20/22 14:53 Dose: Not Given Non-Formulary Medication (Remove Patch 1 Each) 1 each [facility] TED Stop: 10/20/22 21:59 Last Admin: 09/20/22 20:47 Dose: Not Given Nystatin (Nystatin 15 Gm Powder) 0 gm TOP DAILY TED Stop: 10/20/22 13:59 Last Admin: 09/20/22 13:56 Dose: 1 gm Ondansetron HCl (Ondansetron Hcl 4 Mg/2 Ml Vial) 4 mg IV Q6H PRN PRN PRN Reason: NAUSEA/VOMITING Stop: 10/19/22 22:38 Pantoprazole Sodium (Protonix (Pantoprazole) 40 Mg Tablet) 40 mg PO DAILY TED Stop: 10/20/22 13:59 Last Admin: 09/20/22 13:56 Dose: 40 mg Ropinirole HCl (Ropinirole Hcl 2 Mg Tablet) 3 mg PO QHS [facility] Stop: 10/20/22 21:59 Last Admin: 09/20/22 22:12 Dose: 3 mg Fluticasone/Salmeterol (Fluticasone/Salmeterol 115/21 - 120 Puff Common Canister) 2 puff IH BIDRT [facility] Stop: 10/20/22 06:59 Last Admin: 09/21/22 06:35 Dose: 2 puff Simvastatin (Simvastatin 10 Mg Tablet) 10 mg PO [facility] Stop: 10/20/22 21:59 Last Admin: 09/20/22 22:12 Dose: 10 mg Verapamil HCl (Verapamil Hcl Sr 180 Mg Tablet.Sa) 180 mg PO BID [facility] Stop: 10/20/22 21:59 Last Admin: 09/20/22 20:46 Dose: Not Given Intake & Output 09/20/22 09/21/22 11:59 11:59 Intake Total 5030 4567 Output Total 850 1275 Balance 4180 3292 Weight 139.5 kg Orders 09/20/22 07:00 Fluticasone/Salmeterol 115/21 [Advair Hfa 115/21 Common canister*] 2 puff IH BIDRT 09/20/22 07:49 NPO except Meds 09/20/22 11:55 Loperamide HCl 2 mg [Imodium 2 mg] 2 mg PO PRN PRN 09/20/22 12:00 Metronidazole 500 mg Premix [Flagyl 500 mg Ivpb] 500 mg in 100 ml IV Q6HT Ringers Solution,Lactated [Lactated Ringers] 1,000 ml IV 150 mls/hr 09/20/22 13:24 Bisacodyl 5 mg [Dulcolax 5 mg] 5 mg PO BID PRN PRN Hydroxyzine HCl 25 mg [Atarax 25 mg] 25 mg PO TIDPRN PRN 09/20/22 14:00 Aspirin EC 325 mg [Ecotrin 325 MG] 325 mg PO DAILY Bumetanide 1 mg [Bumex 1 mg] 2 mg PO DAILY Gabapentin [Neurontin ] 600 mg PO BID Mirabegron [Myrbetriq] 50 mg PO DAILY Nystatin Powder 15 gm [Nystop Powder 15 gm] See Dose Instructions TOP DAILY PANTOPRAZOLE 40 mg Tablet [Protonix 40MG Tablet] 40 mg PO DAILY 09/20/22 14:45 Medication Intervention 1 each MC .RN TO CHECK Medication Intervention 1 each MC .RN TO CHECK 09/20/22 15:00 Nitroglycerin 0.4 mg/Hr [Nitro-Dur 0.4 MG/HR] 0.4 mg TOP DAILY 09/20/22 16:30 Insulin Lispro [Humalog] 9 unit SQ AC 09/20/22 22:00 Clonidine HCl 0.1 mg [Clonidine 0.1 mg Tablet] 0.1 mg PO BID Lisinopril 20 mg [Zestril 20 MG] 20 mg PO QHS Lisinopril 5 mg [Zestril 5 MG] 5 mg PO QHS Remove Patch [Remove Patch Reminder] 1 each TOP HS Ropinirole 2Mg [Requip 2Mg Tab] 3 mg PO QHS Simvastatin 10 mg [Zocor 10MG] 10 mg PO HS Verapamil HCl Sr [Isoptin Sr] 180 mg PO BID 09/21/22 07:26 Ringers Solution,Lactated [Lactated Ringers] 1,000 ml IV 999 mls/hr 09/21/22 07:49 Ringers Solution,Lactated [Lactated Ringers] 1,000 ml IV 999 mls/hr Lab Tests 09/20/22 09/20/22 09/20/22 10:58 16:20 20:28 WBC RBC Hgb Hct MCV MCH MCHC RDW Plt Count MPV Gran % Immature Gran % (Auto) Nucleat RBC Rel Count Eos # (Auto) Immature Gran # (Auto) Absolute Lymphs (auto) Absolute Monos (auto) Absolute Nucleated RBC Lymphocytes % Monocytes % Eosinophils % Basophils % Absolute Granulocytes Basophils # Sodium Potassium Chloride Carbon Dioxide Anion Gap BUN Creatinine Estimated GFR Glucose POC Glucometer 163 H 160 H 144 H Calcium Magnesium Total Bilirubin AST ALT Alkaline Phosphatase Serum Total Protein Albumin 09/21/22 09/21/22 09/21/22 06:36 06:36 06:45 WBC 16.9 H RBC 5.12 Hgb 14.6 Hct 45.8 MCV 89.5 MCH 28.5 MCHC 31.9 L RDW 15.8 H Plt Count 170 MPV 10.6 Gran % 83.3 H Immature Gran % (Auto) 1.3 H Nucleat RBC Rel Count 0.0 Eos # (Auto) 0.23 Immature Gran # (Auto) 0.22 H Absolute Lymphs (auto) 1.10 Absolute Monos (auto) 1.19 Absolute Nucleated RBC 0.00 Lymphocytes % 6.5 L Monocytes % 7.0 Eosinophils % 1.4 Basophils % 0.5 Absolute Granulocytes 14.08 H Basophils # 0.09 Sodium 132 L Potassium 5.0 Chloride 111 H Carbon Dioxide 10 L* Anion Gap 16.2 H BUN 56 H Creatinine 1.65 H Estimated GFR 32.0 Glucose 160 H POC Glucometer 144 H Calcium 6.7 L Magnesium 2.9 H Total Bilirubin 0.80 AST 64 H ALT 24 Alkaline Phosphatase 86 Serum Total Protein 5.5 L Albumin 2.8 L Microbiology 09/19/22 18:44 Blood Blood Culture - Preliminary NO GROWTH TO DATE 09/19/22 16:40 Catherized Urine Culture - Preliminary GRAM NEGATIVE ID AND SENSITIVITY PENDING Code(s): K57.32 - DVTRCLI OF LG INT W/O PERFORATION OR ABSCESS W/O BLEEDING (3) Altered mental status Current Visit: Yes Status: Acute Qualifiers: Altered mental status type: delirium Qualified Code(s): R41.0 - Disorientation, unspecified Code(s): R41.82 - ALTERED MENTAL STATUS, UNSPECIFIED (4) Diabetes mellitus Current Visit: No Status: Acute Qualifiers: Diabetes mellitus type: type 2 Diabetes mellitus complication status: with kidney complications Diabetes mellitus complication detail: with chronic kidney disease Chronic kidney disease stage: stage 3 (moderate) Code(s): E11.9 - TYPE 2 DIABETES MELLITUS WITHOUT COMPLICATIONS
[2022-09-21] MEDS ORDERED: VANCOMYCIN 1 GRAM/200 ML BAG 1 GM/200 ML PIGGYBACK IV ONE (08:00)
--- NOTE | 2022-09-21 08:01 | PCM.DS ---
Discharge Summary Date of Admission: 09/19/22 22:23 Admitting Physician: PAPO BROWN Primary Care Provider: GABRIELLA ORTEGA Allergies Allergies sulfamethoxazole [From Bactrim] Allergy (Verified 09/19/22 23:00) itching, SOB trimethoprim [From Bactrim] Allergy (Verified 09/19/22 23:00) zinc Adverse Reaction (Mild, Verified 09/19/22 23:00) Rash zinc oxide Adverse Reaction (Mild, Verified 09/19/22 23:00) Rash satin tape Allergy (Uncoded 09/19/22 23:00) Hospital Summary - Hospital Course Hospital Course: Chief Complaint Diagnosis passing out episode at home today Allergies Allergy/AdvReac Type Severity Reaction Status Date / Time sulfamethoxazole Allergy Verified 09/19/22 23:00 [From Bactrim] trimethoprim [From Bactrim] Allergy Verified 09/19/22 23:00 zinc AdvReac Mild Rash Verified 09/19/22 23:00 zinc oxide AdvReac Mild Rash Verified 09/19/22 23:00 satin tape Allergy Uncoded 09/19/22 23:00 Vital Signs (Last 24 hours) Temp Pulse Resp BP Pulse Ox 09/21/22 07:55 102.8 F 100 H 24 82/53 94 L 09/21/22 07:10 99 H 09/21/22 06:37 99 H 24 94 L 09/21/22 06:30 102.4 F 99 H 20 79/47 93 L 09/21/22 06:00 93/53 09/21/22 05:55 102.2 F 97 H 20 107/71 93 L 09/21/22 05:37 102.0 F 99 H 29 H 73/46 90 L 09/21/22 04:35 101.7 F 97 H 27 H 94/65 93 L 09/21/22 03:37 101.5 F 97 H 24 72/48 92 L 09/21/22 02:33 101.5 F 91 H 28 H 97/62 91 L 09/21/22 01:37 101.3 F 94 H 27 H 94/60 95 09/21/22 01:00 101.1 F 95 H 32 H 91/55 91 L 09/21/22 00:46 101.1 F 95 H 36 H 82/56 91 L 01/22/23 00:30 101.1 F 95 H 28 H 66/42 94 L 09/21/22 00:00 100.9 F 95 H 24 90/58 94 L 09/20/22 23:30 100.9 F 90 22 90/48 95 09/20/22 23:00 100.9 F 82 24 78/52 95 09/20/22 22:48 100.9 F 91 H 24 70/57 95 09/20/22 22:00 100.9 F 94 H 16 71/43 94 L 09/20/22 21:00 100.9 F 89 20 93 L 09/20/22 20:00 100.9 F 91 H 24 106/70 94 L 09/20/22 18:43 100.8 F 91 H 17 95/72 96 09/20/22 17:52 100.8 F 89 23 101/65 94 L 09/20/22 17:45 90 20 95 09/20/22 16:48 107/88 09/20/22 16:47 100.6 F 92 H 24 107/88 95 09/20/22 15:54 100.6 F 84 24 85/68 94 L 09/20/22 15:07 83/54 09/20/22 14:52 100.4 F 86 22 72/56 96 09/20/22 14:00 100.4 F 86 21 85/56 95 09/20/22 13:00 100.6 F 88 18 93/69 94 L 09/20/22 12:00 82 09/20/22 11:54 100.6 F 82 20 80/55 95 09/20/22 10:55 100.6 F 87 24 94/48 94 L 09/20/22 09:56 100.6 F 80 20 92/57 95 09/20/22 09:00 100.8 F 86 19 90/54 94 L 09/20/22 08:00 84 89/55 Home Medications Medication Instructions Recorded Confirmed Last Taken Type Clonidine HCl 0.1 mg [Clonidine 0.1 mg PO BID 09/19/22 09/19/22 09/19/22 10:00 History 0.1 mg Tablet] Dapagliflozin Propanediol [Farxiga] 10 mg PO DAILY 09/19/22 09/19/22 09/19/22 10:00 History Gabapentin 600 mg PO BID 09/19/22 09/19/2223 10:00 History Linaclotide [Linzess] 290 mcg PO DAILY 09/19/22 09/19/22 09/19/22 10:00 History Lisinopril 5 mg [Zestril 5 5 mg PO QHS 09/19/22 09/19/22 09/18/22 22:00 History MG] Mirabegron [Myrbetriq] 50 mg PO DAILY 09/19/22 09/19/22 09/19/22 10:00 History Omeprazole 20 mg PO DAILY 09/19/22 09/19/22 09/19/22 10:00 History Ropinirole HCl 3 mg PO QHS 09/19/22 09/19/22 09/18/22 22:00 History lisinopriL [Lisinopril] 20 mg PO QHS 09/19/22 09/19/22 09/18/22 22:00 History Current Medications Generic Name Dose Route Start Last Admin Trade Name Freq PRN Reason Stop Dose Admin Acetaminophen 975 mg 09/20/22 03:43 09/21/22 04:02 Acetaminophen 325 Mg Tablet PO 10/20/22 03:37 975 mg Q6H PRN PRN Administration FEVER Aspirin 325 mg 09/20/22 14:00 09/20/22 13:50 Aspirin 325 Mg Tablet.Ec PO 10/20/22 13:59 Not Given DAILY TED Bisacodyl 5 mg 09/20/22 13:24 Bisacodyl 5 Mg Tablet.Ec PO 10/20/22 13:23 BID PRN PRN CONSTIPATION Bumetanide 2 mg 09/20/22 14:00 09/20/22 13:50 Bumetanide 1 Mg Tablet PO 10/20/22 13:59 Not Given DAILY TED Clonidine 0.1 mg 09/20/22 22:00 09/20/22 20:46 Clonidine Hcl 0.1 Mg Tablet PO 10/20/22 21:59 Not Given BID TED Enoxaparin Sodium 40 mg 09/20/22 10:00 09/20/22 09:43 Enoxaparin Sodium 40 Mg/0.4 Ml Syringe SQ 10/20/22 09:59 40 mg DAILY TED Administration Gabapentin 600 mg 09/20/22 14:00 09/20/22 22:12 Gabapentin 300 Mg Capsule PO 10/20/22 13:59 600 mg BID TED Administration Hydroxyzine HCl 25 mg 09/20/22 13:24 Hydroxyzine Hcl 25 Mg Tablet PO 10/20/22 13:23 TIDPRN PRN Leg Cramps Meropenem 1 gm/ Sodium 100 mls @ 200 mls/hr 09/19/22 22:39 09/21/22 05:03 Chloride IV 09/22/22 22:38 200 mls/hr Q8HT TED Administration Norepinephrine/Dextrose 8 mg in 250 mls @ 15 mls/hr 09/19/22 22:39 09/21/22 0 7:56 Norepinephrine 8 Mg/250 Ml-D5w IV 10/19/22 22:38 28 mcg/min .[id number] PRN 52.5 mls/hr HYPOTENSION Titration Protocol 8 MCG/MIN Lactated Ringer's 1,000 mls @ 150 mls/hr 09/20/22 12:00 09/21/22 00:39 Lactated Ringers IV 10/20/22 11:59 150 mls/hr .Q6H40M TED Administration Metronidazole 500 mg in 100 mls @ 200 mls/hr 09/20/22 12:00 09/21/22 06:03 Flagyl 500 Mg Ivpb IV 10/20/22 11:59 200 mls/hr Q6HT TED Administration Lactated Ringer's 1,000 mls @ 999 mls/hr 09/21/22 07:26 09/21/22 07:48 Lactated Ringers IV 09/21/22 08:26 999 mls/hr .Q1H1M ONE Administration Lactated Ringer's 1,000 mls @ 999 mls/hr 09/21/22 07:49 Lactated Ringers IV 09/21/22 08:49 .Q1H1M ONE Vancomycin HCl 1 gm in 200 mls @ 125 mls/hr 09/21/22 08:00 Vancomycin 1 Gram/200 Ml Bag IV 09/21/22 09:35 ONCE ONE Ibuprofen 600 mg 09/20/22 03:44 09/21/22 07:34 Ibuprofen 600 Mg Tablet PO 10/20/22 03:38 600 mg Q6H PRN PRN Administration FEVER Insulin Human Lispro 9 unit 09/20/22 16:30 09/21/22 07:03 Insulin Lispro 1 Unit SQ 10/20/22 16:29 Not Given AC TED Insulin Human Regular 0 unit 09/19/22 22:39 Insulin Regular, Human 1 Unit SQ 10/19/22 22:38 UD PRN HYPERGLYCEMIA Lisinopril 20 mg 09/20/22 22:00 09/20/22 20:48 Lisinopril 20 Mg Tablet PO 10/20/22 21:59 Not Given QHS TED Lisinopril 5 mg 09/20/22 22:00 09/20/22 20:48 Lisinopril 5 Mg Tablet PO 10/20/22 21:59 Not Given QHS TED Loperamide HCl 2 mg 09/20/22 11:55 09/21/22 07:34 Loperamide Hcl 2 Mg Capsule PO 10/20/22 11:54 2 mg PRN PRN Administration DIARRHEA Mirabegron 50 mg 09/20/22 14:00 09/20/22 13:50 Mirabegron 25 Mg Tab.Er.24h PO 10/20/22 13:59 Not Given DAILY TED Miscellaneous Information 1 each 09/20/22 14:45 Medication Intervention 1 Each Each 10/20/22 14:44 .RN TO CHECK TED Miscellaneous Information 1 each 09/20/22 14:45 Medication Intervention 1 Each Each 10/20/22 14:44 .RN TO CHECK TED Nitroglycerin 0.4 mg 09/20/22 15:00 09/20/22 14:53 Nitroglycerin 0.4 Mg Patch TOP 10/20/22 14:59 Not Given DAILY TED Non-Formulary Medication 1 each 09/20/22 22:00 09/20/22 20:47 Remove Patch 1 Each TOP 10/20/22 21:59 Not Given HS TED Nystatin 0 gm 09/20/22 14:00 09/20/22 13:56 Nystatin 15 Gm Powder TOP 10/20/22 13:59 1 gm DAILY TED Administration Ondansetron HCl 4 mg 09/19/22 22:39 Ondansetron Hcl 4 Mg/2 Ml Vial IV 10/19/22 22:38 Q6H PRN PRN NAUSEA/VOMITING Pantoprazole Sodium 40 mg 09/20/22 14:00 09/20/22 13:56 Protonix (Pantoprazole) 40 Mg Tablet PO 10/20/22 13:59 40 mg DAILY TED Administration Ropinirole HCl 3 mg 09/20/22 22:00 09/20/22 22:12 Ropinirole Hcl 2 Mg Tablet PO 10/20/22 21:59 3 mg QHS TED Administration Fluticasone/Salmeterol 2 puff 09/20/22 07:00 09/21/22 06:35 Fluticasone/Salmeterol 115/21 - 120 Puff Common Canister IH 10/20/22 06:59 2 puff BIDRT TED Administration Simvastatin 10 mg 09/20/22 22:00 09/20/22 22:12 Simvastatin 10 Mg Tablet PO 10/20/22 21:59 10 mg HS TED Administration Verapamil HCl 180 mg 09/20/22 22:00 09/20/22 20:46 Verapamil Hcl Sr 180 Mg Tablet.Sa PO 10/20/22 21:59 Not Given BID TED Discontinued Medications Generic Name Dose Route Start Last Admin Trade Name Freq PRN Reason Stop Dose Admin Acetaminophen 650 mg 09/19/22 19:38 09/19/22 19:41 Acetaminophen 325 Mg Tablet PO 09/19/22 19:39 650 mg STAT STA Administration Acetaminophen Confirm 09/19/22 19:41 Acetaminophen 325 Mg Tablet Administered 09/19/22 19:42 Dose 650 mg .ROUTE .STK-MED ONE Acetaminophen 650 mg 09/19/22 22:39 09/20/22 00:10 Acetaminophen 325 Mg Tablet PO 10/19/22 22:38 650 mg Q4H PRN PRN Administration PAIN, FEVER, HEADACHE Acetaminophen Confirm 09/20/22 00:07 Acetaminophen 325 Mg Tablet Administered 09/20/22 00:08 Dose 650 mg .ROUTE .STK-MED ONE Sodium Chloride 1,000 mls @ 100 mls/hr 09/19/22 17:00 09/19/22 17:30 Sodium Chloride 0.9% 1000 Ml IV 10/19/22 16:59 100 mls/hr .Q10H TED Administration Meropenem 1 gm/ Sodium 100 mls @ 200 mls/hr 09/19/22 18:09 09/19/22 18:24 Chloride IV 09/19/22 18:38 200 mls/hr STAT ONE Administration Norepinephrine/Dextrose 8 mg in 250 mls @ 15 mls/hr 09/19/22 18:09 09/19/22 18:24 Norepinephrine 8 Mg/250 Ml-D5w IV 10/19/22 18:08 8 mcg/min .[id number] PRN 15 mls/hr HYPOTENSION Administration Protocol 8 MCG/MIN Sodium Chloride Confirm 09/19/22 18:15 Sodium Chloride 100ml Mini-Bag Plus Administered 09/19/22 18:16 Dose 100 mls @ ud IV .STK-MED ONE Sodium Chloride 1,000 mls @ 999 mls/hr 09/19/22 18:59 09/19/22 20:48 Sodium Chloride 0.9% 1000 Ml IV 09/19/22 19:59 Infused .Q1H1M STA Infusion Sodium Chloride 1,000 mls @ 999 mls/hr 09/19/22 20:27 09/19/22 22:25 Sodium Chloride 0.9% 1000 Ml IV 09/19/22 21:27 Infused .Q1H1M STA Infusion Norepinephrine/Dextrose Confirm 09/19/22 18:14 Norepinephrine 8 Mg/250 Ml-D5w Administered 09/19/22 18:15 Dose 8 mg in 250 mls @ ud IV .STK-MED ONE Sodium Chloride 1,000 mls @ 125 mls/hr 09/19/22 22:39 09/20/22 05:47 Sodium Chloride 0.9% 1000 Ml IV 10/19/22 22:38 125 mls/hr .Q8H TED Administration Sodium Chloride Confirm 09/20/22 01:00 Sodium Chloride 100ml Mini-Bag Plus Administered 09/20/22 01:01 Dose 100 mls @ ud IV .STK-MED ONE Sodium Chloride Confirm 09/19/22 17:29 Sodium Chloride 0.9% 1000 Ml Administered 09/19/22 17:30 Dose 1,000 mls @ ud .ROUTE .STK-MED ONE Sodium Chloride Confirm 09/19/22 19:31 Sodium Chloride 0.9% 1000 Ml Administered 09/19/22 19:32 Dose 1,000 mls @ ud .ROUTE .STK-MED ONE Sodium Chloride Confirm 09/19/22 20:47 Sodium Chloride 0.9% 1000 Ml Administered 09/19/22 20:48 Dose 1,000 mls @ ud .ROUTE .STK-MED ONE Ibuprofen 600 mg 09/19/22 21:10 09/19/22 21:12 Ibuprofen 600 Mg Tablet PO 09/19/22 21:11 600 mg STAT ONE Administration Ibuprofen Confirm 09/19/22 21:11 Ibuprofen 600 Mg Tablet Administered 09/19/22 21:12 Dose 600 mg .ROUTE .STK-MED ONE Ibuprofen 600 mg 09/20/22 01:23 Ibuprofen 600 Mg Tablet PO 10/20/22 01:22 TIDP PRN MODERATE PAIN Meropenem Confirm 09/19/22 18:14 Meropenem 1 Gm Vial Administered 09/19/22 18:15 Dose 1 gm IV .STK-MED ONE Meropenem Confirm 09/19/22 18:15 Meropenem 1 Gm Vial Administered 09/19/22 18:16 Dose 1 gm IV .STK-MED ONE Meropenem Confirm 09/20/22 01:00 Meropenem 1 Gm Vial Administered 09/20/22 01:01 Dose 1 gm IV .STK-MED ONE Non-Formulary Medication 1 each 09/20/22 11:46 09/20/22 12:11 Pharmacy Dosing Request MC 09/20/22 11:47 1 each STAT ONE Administration Intake & Output (Last 24 hours) 09/18/22 09/19/22 09/20/22 09/21/22 11:59 11:59 11:59 11:59 Intake Total 5030 4567 Output Total 850 1275 Balance 4180 3292 Weight 139.5 kg Microbiology Results (Last 24 hours) 09/19/22 18:44 Blood Blood Culture Gram Stain - Pending 09/19/22 18:44 Blood Blood Culture - Preliminary NO GROWTH TO DATE 09/19/22 16:40 Catherized Urine Culture - Preliminary GRAM NEGATIVE ID AND SENSITIVITY PENDING Laboratory Results (Last 24 hours) 09/21/22 09/21/22 09/21/22 06:45 06:36 06:36 WBC 16.9 H RBC 5.12 Hgb 14.6 Hct 45.8 MCV 89.5 MCH 28.5 MCHC 31.9 L RDW 15.8 H Plt Count 170 MPV 10.6 Gran % 83.3 H Immature Gran % (Auto) 1.3 H Nucleat RBC Rel Count 0.0 Eos # (Auto) 0.23 Immature Gran # (Auto) 0.22 H Absolute Lymphs (auto) 1.10 Absolute Monos (auto) 1.19 Absolute Nucleated RBC 0.00 Lymphocytes % 6.5 L Monocytes % 7.0 Eosinophils % 1.4 Basophils % 0.5 Absolute Granulocytes 14.08 H Basophils # 0.09 Sodium 132 L Potassium 5.0 Chloride 111 H Carbon Dioxide 10 L* Anion Gap 16.2 H BUN 56 H Creatinine 1.65 H Estimated GFR 32.0 Glucose 160 H POC Glucometer 144 H Calcium 6.7 L Magnesium 2.9 H Total Bilirubin 0.80 AST 64 H ALT 24 Alkaline Phosphatase 86 Serum Total Protein 5.5 L Albumin 2.8 L 09/20/22 09/20/22 09/20/22 20:28 16:20 10:58 WBC RBC Hgb Hct MCV MCH MCHC RDW Plt Count MPV Gran % Immature Gran % (Auto) Nucleat RBC Rel Count Eos # (Auto) Immature Gran # (Auto) Absolute Lymphs (auto) Absolute Monos (auto) Absolute Nucleated RBC Lymphocytes % Monocytes % Eosinophils % Basophils % Absolute Granulocytes Basophils # Sodium Potassium Chloride Carbon Dioxide Anion Gap BUN Creatinine Estimated GFR Glucose POC Glucometer 144 H 160 H 163 H Calcium Magnesium Total Bilirubin AST ALT Alkaline Phosphatase Serum Total Protein Albumin Orders (Last 24 hours) Category Date Time Status NPO except Meds Diet 09/20/22 07:49 Active CBC W DIFF AM.LAB Lab 09/21/22 06:36 Completed CMP AM.LAB Lab 09/21/22 06:36 Completed MAG [MAGNESIUM] AM.LAB Lab 09/21/22 06:36 Completed Manual Differential NC Routine Lab 09/21/22 06:36 Completed POCT GLUCOSE Stat Lab 09/20/22 10:58 Completed POCT GLUCOSE Stat Lab 09/20/22 16:20 Completed POCT GLUCOSE Stat Lab 09/20/22 20:28 Completed POCT GLUCOSE Stat Lab 09/21/22 06:45 Completed Aspirin EC 325 mg [Ecotrin 325 MG] Med 09/20/22 14:00 Active 325 mg PO DAILY Bisacodyl 5 mg [Dulcolax 5 mg] Med 09/20/22 13:24 Active 5 mg PO BID PRN PRN Bumetanide 1 mg [Bumex 1 mg] Med 09/20/22 14:00 Active 2 mg PO DAILY Clonidine HCl 0.1 mg [Clonidine 0.1 mg Tablet] Med 09/20/22 22:00 Active 0.1 mg PO BID Enoxaparin Sodium [Enoxaparin Sodium] Med 09/20/22 10:00 Active 40 mg SQ DAILY Fluticasone/Salmeterol [Advair Hfa Common Med 09/20/22 07:00 Active canister*] 2 puff IH BIDRT Gabapentin [Neurontin ] Med 09/20/22 14:00 Active 600 mg PO BID Hydroxyzine HCl 25 mg [Atarax 25 mg] Med 09/20/22 13:24 Active 25 mg PO TIDPRN PRN Insulin Lispro [Humalog] Med 09/20/22 16:30 Active 9 unit SQ AC Lisinopril 20 mg [Zestril 20 MG] Med 09/20/22 22:00 Active 20 mg PO QHS Lisinopril 5 mg [Zestril 5 MG] Med 09/20/22 22:00 Active 5 mg PO QHS Loperamide HCl 2 mg [Imodium 2 mg] Med 09/20/22 11:55 Active 2 mg PO PRN PRN Medication Intervention Med 09/20/22 14:45 Active 1 each MC .RN TO CHECK Medication Intervention Med 09/20/22 14:45 Active 1 each MC .RN TO CHECK Metronidazole 500 mg Premix [Flagyl 500 mg Ivpb] Med 09/20/22 12:00 Active 500 mg in 100 ml IV Q6HT Mirabegron [Myrbetriq] Med 09/20/22 14:00 Active 50 mg PO DAILY Nitroglycerin 0.4 mg/Hr [Nitro-Dur 0.4 MG/HR] Med 09/20/22 15:00 Active 0.4 mg TOP DAILY Nystatin Powder 15 gm [Nystop Powder 15 gm] Med 09/20/22 14:00 Active See Dose Instructions TOP DAILY PANTOPRAZOLE 40 mg Tablet [Protonix 40MG Tablet] Med 09/20/22 14:00 Active 40 mg PO DAILY Pharmacy Dosing Request Med 09/20/22 11:46 Discontinued 1 each MC STAT ONE Remove Patch [Remove Patch Reminder] Med 09/20/22 22:00 Active 1 each TOP HS Ringers Solution,Lactated [Lactated Ringers] 1,000 ml Med 09/20/22 12:00 Active IV 150 mls/hr Ringers Solution,Lactated [Lactated Ringers] 1,000 ml Med 09/21/22 07:26 Active IV 999 mls/hr Ringers Solution,Lactated [Lactated Ringers] 1,000 ml Med 09/21/22 07:49 Active IV 999 mls/hr Ropinirole 2Mg [Requip 2Mg Tab] Med 09/20/22 22:00 Active 3 mg PO QHS Simvastatin 10 mg [Zocor 10MG] Med 09/20/22 22:00 Active 10 mg PO HS Vancomycin/Water For Inj (Peg) [Vancomycin 1 Gram/200 Med 09/21/22 08:00 Ordered ml Bag] 1 gm in 200 ml IV ONCE Verapamil HCl Sr [Isoptin Sr] Med 09/20/22 22:00 Active 180 mg PO BID Patient Care Notes (Last 24 hours) 09/21/22 07:52 Nursing Note by Seble Martel large loose bm noted, bath given. Initialized on 09/21/22 07:52 - END OF NOTE 09/21/22 07:22 Nursing Note by Seble Martel pt is oriented x3 and updated on gravity of situation. pt agrees to transfer regardless of how far away, pt says " i wanna get better". Initialized on 09/21/22 07:22 - END OF NOTE 09/21/22 07:11 Nursing Note by Seble Martel dr updated on labs and vitals, orders to transfer to first available bed. at this time, [facility] are on diversion but [place] is finding an accepting hospitalist. Initialized on 09/21/22 07:11 - END OF NOTE 09/21/22 06:24 Nursing Note by Hui Valenzuela [id number] for past hour patients respirations have changed although o2 sat has not. sat remains between 90-95. pt having pursed lip breathing. respiratory therapy consulted and evaluating patient now Initialized on 09/21/22 06:24 - END OF NOTE 09/20/22 11:45 (created 09/20/22 13:07) Nursing Note by Seble Martel dr at bedside rounding on pt. updated on pt continuous copious amounts of liquid diarrhea. new orders for lr @ 150, will add flagyl and imodium. Initialized on 09/20/22 13:07 - END OF NOTE I talked to Dr. King at [facility] they accepted patient in ICU. Patient blood pressure is 110/56. Patient is otherwise alert arousable. Patient still has some copious amount of diarrhea. Patient is on Flagyl vancomycin and Merrem at this point of time. Blood culture has not been shown any growth. Patient is on Levophed 28 mcg/min. We will transfer all the records with patient to [facility]. - Vitals & Intake/Output Vital Signs: Vital Signs Temperature 102.8 F 09/21/22 07:55 Pulse Rate 100 H 09/21/22 07:55 Respiratory Rate 24 09/21/22 07:55 Blood Pressure 82/53 09/21/22 07:55 O2 Sat by Pulse Oximetry 94 L 09/21/22 07:55 Intake & Output: Intake & Output 09/18/22 09/19/22 09/20/22 09/21/22 11:59 11:59 11:59 11:59 Intake Total 5030 4567 Output Total 850 1275 Balance 4180 3292 Weight 139.5 kg - Lab Result Diagrams: 09/21/22 06:36 09/21/22 06:36 Lab Results-Last 24 Hrs: Lab Results-Last 24 Hours 09/20/22 09/20/22 09/20/22 Range/Units 10:58 16:20 20:28 WBC (4.0-10.5) x10^3/uL RBC (4.1-5.4) x10^6/uL Hgb (12.0-16.0) g/dL Hct (35-47) % MCV (78-100) fL MCH (26-32) pg MCHC (32-36) g/dL RDW (11.5-14.0) % Plt Count (150-450) x10^3/uL MPV (7.5-11.0) fL Gran % (36.0-66.0) % Immature Gran % (Auto) (0.00-0.4) % Nucleat RBC Rel Count (0.00-0.1) % Eos # (Auto) (0-0.5) x10^3/uL Immature Gran # (Auto) (0.00-0.03) x10^3u/L Absolute Lymphs (auto) (1.0-4.6) x10^3/uL Absolute Monos (auto) (0.0-1.3) x10^3/uL Absolute Nucleated RBC (0.00-0.01) x10^3u/L Lymphocytes % (24.0-44.0) % Monocytes % (0.0-12.0) % Eosinophils % (0.00-5.0) % Basophils % (0.0-0.4) % Absolute Granulocytes (1.4-6.9) x10^3/uL Basophils # (0-0.4) x10^3/uL Sodium (137-145) mmol/L Potassium (3.5-5.1) mmol/L Chloride (98-107) mmol/L Carbon Dioxide (22-30) mmol/L Anion Gap (5-15) MEQ/L BUN (7-17) mg/dL Creatinine (0.52-1.04) mg/dL Estimated GFR ML/MIN Glucose (74-106) mg/dL POC Glucometer 163 H 160 H 144 H (74 to 106) mg/dL Calcium (8.4-10.2) mg/dL Magnesium (1.6-2.3) mg/dL Total Bilirubin (0.2-1.3) mg/dL AST (14-36) U/L ALT (0-35) U/L Alkaline Phosphatase (38-126) U/L Serum Total Protein (6.3-8.2) g/dL Albumin (3.5-5.0) g/dL 09/21/22 09/21/22 09/21/22 Range/Units 06:36 06:36 06:45 WBC 16.9 H (4.0-10.5) x10^3/uL RBC 5.12 (4.1-5.4) x10^6/uL Hgb 14.6 (12.0-16.0) g/dL Hct 45.8 (35-47) % MCV 89.5 (78-100) fL MCH 28.5 (26-32) pg MCHC 31.9 L (32-36) g/dL RDW 15.8 H (11.5-14.0) % Plt Count 170 (150-450) x10^3/uL MPV 10.6 (7.5-11.0) fL Gran % 83.3 H (36.0-66.0) % Immature Gran % (Auto) 1.3 H (0.00-0.4) % Nucleat RBC Rel Count 0.0 (0.00-0.1) % Eos # (Auto) 0.23 (0-0.5) x10^3/uL Immature Gran # (Auto) 0.22 H (0.00-0.03) x10^3u/L Absolute Lymphs (auto) 1.10 (1.0-4.6) x10^3/uL Absolute Monos (auto) 1.19 (0.0-1.3) x10^3/uL Absolute Nucleated RBC 0.00 (0.00-0.01) x10^3u/L Lymphocytes % 6.5 L (24.0-44.0) % Monocytes % 7.0 (0.0-12.0) % Eosinophils % 1.4 (0.00-5.0) % Basophils % 0.5 (0.0-0.4) % Absolute Granulocytes 14.08 H (1.4-6.9) x10^3/uL Basophils # 0.09 (0-0.4) x10^3/uL Sodium 132 L (137-145) mmol/L Potassium 5.0 (3.5-5.1) mmol/L Chloride 111 H (98-107) mmol/L Carbon Dioxide 10 L* (22-30) mmol/L Anion Gap 16.2 H (5-15) MEQ/L BUN 56 H (7-17) mg/dL Creatinine 1.65 H (0.52-1.04) mg/dL Estimated GFR 32.0 ML/MIN Glucose 160 H (74-106) mg/dL POC Glucometer 144 H (74 to 106) mg/dL Calcium 6.7 L (8.4-10.2) mg/dL Magnesium 2.9 H (1.6-2.3) mg/dL Total Bilirubin 0.80 (0.2-1.3) mg/dL AST 64 H (14-36) U/L ALT 24 (0-35) U/L Alkaline Phosphatase 86 (38-126) U/L Serum Total Protein 5.5 L (6.3-8.2) g/dL Albumin 2.8 L (3.5-5.0) g/dL Micro Results-Entire Visit: Microbiology 09/19/22 18:44 Blood Culture - Preliminary Blood NO GROWTH TO DATE 09/19/22 16:40 Urine Culture - Preliminary Catherized GRAM NEGATIVE ID AND SENSITIVITY PENDING Accuchecks Date 09/20/22 Time 21:00 - Radiology Exams Ordered Rad Exams-Entire Visit: Radiology Procedures Category Date Time Status ABDOMEN AND PELVIS W/0 CONTRAS [CT] Stat Exams 09/20/22 03:40 Completed CHEST WITH CONTRAST [CT] Stat Exams 09/19/22 19:42 Completed HEAD WITHOUT CONTRAST [CT] Stat Exams 09/19/22 16:53 Completed - Procedures and Test Procedures and Tests throughout Hospitalization: Therapy Orders & Screens 09/19/22 22:39 EKG REPEAT IN AM Comment: Oxygen Nasal Cannula 2 lpm Comment: Respiratory Therapy Consult ROUTINE Comment: Reason For Exam: 09/19/22 23:50 Respiratory MDI UD Comment: 09/19/22 23:51 Respiratory Therapy Assessment DAILY Comment: Discharge Exam General Appearance: no apparent distress, moderate distress, alert Neurologic Exam: alert, oriented x 3, No motor deficits Eye Exam: PERRL, EOMI, eyes nml inspection Ears, Nose, Throat Exam: normal ENT inspection, pharynx normal, moist mucous membranes Neck Exam: normal inspection, non-tender, supple, full range of motion Respiratory Exam: diminished breath sounds, No respiratory distress Cardiovascular Exam: regular rate/rhythm, normal heart sounds Gastrointestinal/Abdomen Exam: soft, No tenderness, No mass Pelvic Exam: deferred Rectal Exam: deferred Back Exam: normal inspection, normal range of motion, No CVA tenderness, No vertebral tenderness Extremity Exam: normal inspection, normal range of motion Skin Exam: normal color, warm, dry Final Diagnosis/Problem List - Final Discharge Diagnosis/Problem (1) Sepsis associated hypotension Current Visit: Yes Status: Acute Assessment & Plan: Chief Complaint Diagnosis passing out episode at home today Allergies Allergy/AdvReac Type Severity Reaction Status Date / Time sulfamethoxazole Allergy Verified 09/19/22 23:00 [From Bactrim] trimethoprim [From Bactrim] Allergy Verified 09/19/22 23:00 zinc AdvReac Mild Rash Verified 09/19/22 23:00 zinc oxide AdvReac Mild Rash Verified 09/19/22 23:00 satin tape Allergy Uncoded 09/19/22 23:00 Vital Signs (Last 24 hours) Temp Pulse Resp BP Pulse Ox 09/21/22 07:55 102.8 F 100 H 24 82/53 94 L 09/21/22 07:10 99 H 09/21/22 06:37 99 H 24 94 L 09/21/22 06:30 102.4 F 99 H 20 79/47 93 L 09/21/22 06:00 93/53 09/21/22 05:55 102.2 F 97 H 20 107/71 93 L 09/21/22 05:37 102.0 F 99 H 29 H 73/46 90 L 09/21/22 04:35 101.7 F 97 H 27 H 94/65 93 L 09/21/22 03:37 101.5 F 97 H 24 72/48 92 L 09/21/22 02:33 101.5 F 91 H 28 H 97/62 91 L 09/21/22 01:37 101.3 F 94 H 27 H 94/60 95 09/21/22 01:00 101.1 F 95 H 32 H 91/55 91 L 09/21/22 00:46 101.1 F 95 H 36 H 82/56 91 L 09/21/22 00:30 101.1 F 95 H 28 H 66/42 94 L 09/21/22 00:00 100.9 F 95 H 24 90/58 94 L 09/20/22 23:30 100.9 F 90 22 90/48 95 09/20/22 23:00 100.9 F 82 24 78/52 95 09/20/22 22:48 100.9 F 91 H 24 70/57 95 09/20/22 22:00 100.9 F 94 H 16 71/43 94 L 09/20/22 21:00 100.9 F 89 20 93 L 09/20/22 20:00 100.9 F 91 H 24 106/70 94 L 09/20/22 18:43 100.8 F 91 H 17 95/72 96 09/20/22 17:52 100.8 F 89 23 101/65 94 L 09/20/22 17:45 90 20 95 09/20/22 16:48 107/88 09/20/22 16:47 100.6 F 92 H 24 107/88 95 09/20/22 15:54 100.6 F 84 24 85/68 94 L 09/20/22 15:07 83/54 09/20/22 14:52 100.4 F 86 22 72/56 96 09/20/22 14:00 100.4 F 86 21 85/56 95 09/20/22 13:00 100.6 F 88 18 93/69 94 L 09/20/22 12:00 82 09/20/22 11:54 100.6 F 82 20 80/55 95 09/20/22 10:55 100.6 F 87 24 94/48 94 L 09/20/22 09:56 100.6 F 80 20 92/57 95 09/20/22 09:00 100.8 F 86 19 90/54 94 L Home Medications Medication Instructions Recorded Confirmed Last Taken Type Clonidine HCl 0.1 mg [Clonidine 0.1 mg PO BID 09/19/22 09/19/22 09/19/22 10:00 History 0.1 mg Tablet] Dapagliflozin Propanediol [Farxiga] 10 mg PO DAILY 09/19/22 09/19/22 09/19/22 10:00 History Gabapentin 600 mg PO BID 09/19/22 09/19/22 09/19/22 10:00 History Linaclotide [Linzess] 290 mcg PO DAILY 09/19/22 09/19/22 09/19/22 10:00 History Lisinopril 5 mg [Zestril 5 5 mg PO QHS 09/19/22 09/19/22 09/18/22 22:00 History MG] Mirabegron [Myrbetriq] 50 mg PO DAILY 09/19/22 09/19/22 09/19/22 10:00 History Omeprazole 20 mg PO DAILY 09/19/22 09/19/22 09/19/22 10:00 History Ropinirole HCl 3 mg PO QHS 09/19/22 09/19/22 09/18/22 22:00 History lisinopriL [Lisinopril] 20 mg PO QHS 09/19/22 09/19/22 09/18/22 22:00 History Current Medications Generic Name Dose Route Start Last Admin Trade Name Freq PRN Reason Stop Dose Admin Acetaminophen 975 mg 09/20/22 03:43 09/21/22 04:02 Acetaminophen 325 Mg Tablet PO 10/20/22 03:37 975 mg Q6H PRN PRN Administration FEVER Aspirin 325 mg 09/20/22 14:00 09/20/22 13:50 Aspirin 325 Mg Tablet.Ec PO 10/20/22 13:59 Not Given DAILY TED Bisacodyl 5 mg 09/20/22 13:24 Bisacodyl 5 Mg Tablet.Ec PO 10/20/22 13:23 BID PRN PRN CONSTIPATION Bumetanide 2 mg 09/20/22 14:00 09/20/22 13:50 Bumetanide 1 Mg Tablet PO 10/20/22 13:59 Not Given DAILY TED Clonidine 0.1 mg 09/20/22 22:00 09/20/22 20:46 Clonidine Hcl 0.1 Mg Tablet PO 10/20/22 21:59 Not Given BID TED Enoxaparin Sodium 40 mg 09/20/22 10:00 09/20/22 09:43 Enoxaparin Sodium 40 Mg/0.4 Ml Syringe SQ 10/20/22 09:59 40 mg DAILY TED Administration Gabapentin 600 mg 09/20/22 14:00 09/20/22 22:12 Gabapentin 300 Mg Capsule PO 10/20/22 13:59 600 mg BID TED Administration Hydroxyzine HCl 25 mg 09/20/22 13:24 Hydroxyzine Hcl 25 Mg Tablet PO 10/20/22 13:23 TIDPRN PRN Leg Cramps Meropenem 1 gm/ Sodium 100 mls @ 200 mls/hr 09/19/22 22:39 09/21/22 05:03 Chloride IV 09/22/22 22:38 200 mls/hr Q8HT TED Administration Norepinephrine/Dextrose 8 mg in 250 mls @ 15 mls/hr 09/19/22 22:39 09/21/22 07:56 Norepinephrine 8 Mg/250 Ml-D5w IV 10/19/22 22:38 28 mcg/min .[id number] PRN 52.5 mls/hr HYPOTENSION Titration Protocol 8 MCG/MIN Lactated Ringer's 1,000 mls @ 150 mls/hr 09/20/22 12:00 09/21/22 00:39 Lactated Ringers IV 10/20/22 11:59 150 mls/hr .Q6H40M TED Administration Metronidazole 500 mg in 100 mls @ 200 mls/hr 09/20/22 12:00 09/21/22 06:03 Flagyl 500 Mg Ivpb IV 10/20/22 11:59 200 mls/hr Q6HT TED Administration Lactated Ringer's 1,000 mls @ 999 mls/hr 09/21/22 07:26 09/21/22 07:48 Lactated Ringers IV 09/21/22 08:26 999 mls/hr .Q1H1M ONE Administration Lactated Ringer's 1,000 mls @ 999 mls/hr 09/21/22 07:49 Lactated Ringers IV 09/21/22 08:49 .Q1H1M ONE Vancomycin HCl 1 gm in 200 mls @ 125 mls/hr 09/21/22 08:00 Vancomycin 1 Gram/200 Ml Bag IV 09/21/22 09:35 ONCE ONE Ibuprofen 600 mg 09/20/22 03:44 09/21/22 07:34 Ibuprofen 600 Mg Tablet PO 10/20/22 03:38 600 mg Q6H PRN PRN Administration FEVER Insulin Human Lispro 9 unit 09/20/22 16:30 09/21/22 07:03 Insulin Lispro 1 Unit SQ 10/20/22 16:29 Not Given [facility] Insulin Human Regular 0 unit 09/19/22 22:39 Insulin Regular, Human 1 Unit SQ 10/19/22 22:38 UD PRN HYPERGLYCEMIA Lisinopril 20 mg 09/20/22 22:00 09/20/22 20:48 Lisinopril 20 Mg Tablet PO 10/20/22 21:59 Not Given QHS TED Lisinopril 5 mg 09/20/22 22:00 09/20/22 20:48 Lisinopril 5 Mg Tablet PO 10/20/22 21:59 Not Given QHS TED Loperamide HCl 2 mg 09/20/22 11:55 09/21/22 07:34 Loperamide Hcl 2 Mg Capsule PO 10/20/22 11:54 2 mg PRN PRN Administration DIARRHEA Mirabegron 50 mg 09/20/22 14:00 09/20/22 13:50 Mirabegron 25 Mg Tab.Er.24h PO 10/20/22 13:59 Not Given DAILY TED Miscellaneous Information 1 each 09/20/22 14:45 Medication Intervention 1 Each Each 10/20/22 14:44 .RN TO CHECK TED Miscellaneous Information 1 each 09/20/22 14:45 Medication Intervention 1 Each Each 10/20/22 14:44 .RN TO CHECK TED Nitroglycerin 0.4 mg 09/20/22 15:00 09/20/22 14:53 Nitroglycerin 0.4 Mg Patch TOP 10/20/22 14:59 Not Given DAILY TED Non-Formulary Medication 1 each 09/20/22 22:00 09/20/22 20:47 Remove Patch 1 Each TOP 10/20/22 21:59 Not Given HS TED Nystatin 0 gm 09/20/22 14:00 09/20/22 13:56 Nystatin 15 Gm Powder TOP 10/20/22 13:59 1 gm DAILY TED Administration Ondansetron HCl 4 mg 09/19/22 22:39 Ondansetron Hcl 4 Mg/2 Ml Vial IV 10/19/22 22:38 Q6H PRN PRN NAUSEA/VOMITING Pantoprazole Sodium 40 mg 09/20/22 14:00 09/20/22 13:56 Protonix (Pantoprazole) 40 Mg Tablet PO 10/20/22 13:59 40 mg DAILY TED Administration Ropinirole HCl 3 mg 09/20/22 22:00 09/20/22 22:12 Ropinirole Hcl 2 Mg Tablet PO 10/20/22 21:59 3 mg QHS TED Administration Fluticasone/Salmeterol 2 puff 09/20/22 07:00 09/21/22 06:35 Fluticasone/Salmeterol 115/21 - 120 Puff Common Canister IH 10/20/22 06:59 2 puff BIDRT TED Administration Simvastatin 10 mg 09/20/22 22:00 09/20/22 22:12 Simvastatin 10 Mg Tablet PO 10/20/22 21:59 10 mg HS TED Administration Verapamil HCl 180 mg 09/20/22 22:00 09/20/22 20:46 Verapamil Hcl Sr 180 Mg Tablet.Sa PO 10/20/22 21:59 Not Given BID TED Discontinued Medications Generic Name Dose Route Start Last Admin Trade Name Freq PRN Reason Stop Dose Admin Acetaminophen 650 mg 09/19/22 19:38 09/19/22 19:41 Acetaminophen 325 Mg Tablet PO 09/19/22 19:39 650 mg STAT STA Administration Acetaminophen Confirm 09/19/22 19:41 Acetaminophen 325 Mg Tablet Administered 09/19/22 19:42 Dose 650 mg .ROUTE .STK-MED ONE Acetaminophen 650 mg 09/19/22 22:39 09/20/22 00:10 Acetaminophen 325 Mg Tablet PO 10/19/22 22:38 650 mg Q4H PRN PRN Administration PAIN, FEVER, HEADACHE Acetaminophen Confirm 09/20/22 00:07 Acetaminophen 325 Mg Tablet Administered 09/20/22 00:08 Dose 650 mg .ROUTE .STK-MED ONE Sodium Chloride 1,000 mls @ 100 mls/hr 09/19/22 17:00 09/19/22 17:30 Sodium Chloride 0.9% 1000 Ml IV 10/19/22 16:59 100 mls/hr .Q10H TED Administration Meropenem 1 gm/ Sodium 100 mls @ 200 mls/hr 09/19/22 18:09 09/19/22 18:24 Chloride IV 09/19/22 18:38 200 mls/hr STAT ONE Administration Norepinephrine/Dextrose 8 mg in 250 mls @ 15 mls/hr 09/19/22 18:09 09/19/22 18:24 Norepinephrine 8 Mg/250 Ml-D5w IV 10/19/22 18:08 8 mcg/min .[id number] PRN 15 mls/hr HYPOTENSION Administration Protocol 8 MCG/MIN Sodium Chloride Confirm 09/19/22 18:15 Sodium Chloride 100ml Mini-Bag Plus Administered 09/19/22 18:16 Dose 100 mls @ ud IV .STK-MED ONE Sodium Chloride 1,000 mls @ 999 mls/hr 09/19/22 18:59 09/19/22 20:48 Sodium Chloride 0.9% 1000 Ml IV 09/19/22 19:59 Infused .Q1H1M STA Infusion Sodium Chloride 1,000 mls @ 999 mls/hr 09/19/22 20:27 09/19/22 22:25 Sodium Chloride 0.9% 1000 Ml IV 09/19/22 21:27 Infused .Q1H1M STA Infusion Norepinephrine/Dextrose Confirm 09/19/22 18:14 Norepinephrine 8 Mg/250 Ml-D5w Administered 09/19/22 18:15 Dose 8 mg in 250 mls @ ud IV .STK-MED ONE Sodium Chloride 1,000 mls @ 125 mls/hr 09/19/22 22:39 09/20/22 05:47 Sodium Chloride 0.9% 1000 Ml IV 10/19/22 22:38 125 mls/hr .Q8H TED Administration Sodium Chloride Confirm 09/20/22 01:00 Sodium Chloride 100ml Mini-Bag Plus Administered 09/20/22 01:01 Dose 100 mls @ ud IV .STK-MED ONE Sodium Chloride Confirm 09/19/22 17:29 Sodium Chloride 0.9% 1000 Ml Administered 09/19/22 17:30 Dose 1,000 mls @ ud .ROUTE .STK-MED ONE Sodium Chloride Confirm 09/19/22 19:31 Sodium Chloride 0.9% 1000 Ml Administered 09/19/22 19:32 Dose 1,000 mls @ ud .ROUTE .STK-MED ONE Sodium Chloride Confirm 09/19/22 20:47 Sodium Chloride 0.9% 1000 Ml Administered 09/19/22 20:48 Dose 1,000 mls @ ud .ROUTE .STK-MED ONE Ibuprofen 600 mg 09/19/22 21:10 09/19/22 21:12 Ibuprofen 600 Mg Tablet PO 09/19/22 21:11 600 mg STAT ONE Administration Ibuprofen Confirm 09/19/22 21:11 Ibuprofen 600 Mg Tablet Administered 09/19/22 21:12 Dose 600 mg .ROUTE .STK-MED ONE Ibuprofen 600 mg 09/20/22 01:23 Ibuprofen 600 Mg Tablet PO 10/20/22 01:22 TIDP PRN MODERATE PAIN Meropenem Confirm 09/19/22 18:14 Meropenem 1 Gm Vial Administered 09/19/22 18:15 Dose 1 gm IV .STK-MED ONE Meropenem Confirm 09/19/22 18:15 Meropenem 1 Gm Vial Administered 09/19/22 18:16 Dose 1 gm IV .STK-MED ONE Meropenem Confirm 09/20/22 01:00 Meropenem 1 Gm Vial Administered 09/20/22 01:01 Dose 1 gm IV .STK-MED ONE Non-Formulary Medication 1 each 09/20/22 11:46 09/20/22 12:11 Pharmacy Dosing Request MC 09/20/22 11:47 1 each STAT ONE Administration Intake & Output (Last 24 hours) 09/18/22 09/19/22 09/20/22 09/21/22 11:59 11:59 11:59 11:59 Intake Total 5030 4567 Output Total 850 2515 Balance 4180 2702 Weight 139.5 kg Microbiology Results (Last 24 hours) 09/19/22 18:44 Blood Blood Culture Gram Stain - Pending 09/19/22 18:44 Blood Blood Culture - Preliminary NO GROWTH TO DATE 09/19/22 16:40 Catherized Urine Culture - Preliminary GRAM NEGATIVE ID AND SENSITIVITY PENDING Laboratory Results (Last 24 hours) 09/21/22 09/21/22 09/21/22 06:45 06:36 06:36 WBC 16.9 H RBC 5.12 Hgb 14.6 Hct 45.8 MCV 89.5 MCH 28.5 MCHC 31.9 L RDW 15.8 H Plt Count 170 MPV 10.6 Gran % 83.3 H Immature Gran % (Auto) 1.3 H Nucleat RBC Rel Count 0.0 Eos # (Auto) 0.23 Immature Gran # (Auto) 0.22 H Absolute Lymphs (auto) 1.10 Absolute Monos (auto) 1.19 Absolute Nucleated RBC 0.00 Lymphocytes % 6.5 L Monocytes % 7.0 Eosinophils % 1.4 Basophils % 0.5 Absolute Granulocytes 14.08 H Basophils # 0.09 Sodium 132 L Potassium 5.0 Chloride 111 H Carbon Dioxide 10 L* Anion Gap 16.2 H BUN 56 H Creatinine 1.65 H Estimated GFR 32.0 Glucose 160 H POC Glucometer 144 H Calcium 6.7 L Magnesium 2.9 H Total Bilirubin 0.80 AST 64 H ALT 24 Alkaline Phosphatase 86 Serum Total Protein 5.5 L Albumin 2.8 L 09/20/22 09/20/22 09/20/22 20:28 16:20 10:58 WBC RBC Hgb Hct MCV MCH MCHC RDW Plt Count MPV Gran % Immature Gran % (Auto) Nucleat RBC Rel Count Eos # (Auto) Immature Gran # (Auto) Absolute Lymphs (auto) Absolute Monos (auto) Absolute Nucleated RBC Lymphocytes % Monocytes % Eosinophils % Basophils % Absolute Granulocytes Basophils # Sodium Potassium Chloride Carbon Dioxide Anion Gap BUN Creatinine Estimated GFR Glucose POC Glucometer 144 H 160 H 163 H Calcium Magnesium Total Bilirubin AST ALT Alkaline Phosphatase Serum Total Protein Albumin Orders (Last 24 hours) Category Date Time Status NPO except Meds Diet 09/20/22 07:49 Active CBC W DIFF AM.LAB Lab 09/21/22 06:36 Completed CMP AM.LAB Lab 09/21/22 06:36 Completed MAG [MAGNESIUM] AM.LAB Lab 09/21/22 06:36 Completed Manual Differential NC Routine Lab 09/21/22 06:36 Completed POCT GLUCOSE Stat Lab 09/20/22 10:58 Completed POCT GLUCOSE Stat Lab 09/20/22 16:20 Completed POCT GLUCOSE Stat Lab 09/20/22 20:28 Completed POCT GLUCOSE Stat Lab 09/21/22 06:45 Completed Aspirin EC 325 mg [Ecotrin 325 MG] Med 09/20/22 14:00 Active 325 mg PO DAILY Bisacodyl 5 mg [Dulcolax 5 mg] Med 09/20/22 13:24 Active 5 mg PO BID PRN PRN Bumetanide 1 mg [Bumex 1 mg] Med 09/20/22 14:00 Active 2 mg PO DAILY Clonidine HCl 0.1 mg [Clonidine 0.1 mg Tablet] Med 09/20/22 22:00 Active 0.1 mg PO BID Enoxaparin Sodium [Enoxaparin Sodium] Med 09/20/22 10:00 Active 40 mg SQ DAILY Gabapentin [Neurontin ] Med 09/20/22 14:00 Active 600 mg PO BID Hydroxyzine HCl 25 mg [Atarax 25 mg] Med 09/20/22 13:24 Active 25 mg PO TIDPRN PRN Insulin Lispro [Humalog] Med 09/20/22 16:30 Active 9 unit SQ AC Lisinopril 20 mg [Zestril 20 MG] Med 09/20/22 22:00 Active 20 mg PO QHS Lisinopril 5 mg [Zestril 5 MG] Med 09/20/22 22:00 Active 5 mg PO QHS Loperamide HCl 2 mg [Imodium 2 mg] Med 09/20/22 11:55 Active 2 mg PO PRN PRN Medication Intervention Med 09/20/22 14:45 Active 1 each MC .RN TO CHECK Medication Intervention Med 09/20/22 14:45 Active 1 each MC .RN TO CHECK Metronidazole 500 mg Premix [Flagyl 500 mg Ivpb] Med 09/20/22 12:00 Active 500 mg in 100 ml IV Q6HT Mirabegron [Myrbetriq] Med 09/20/22 14:00 Active 50 mg PO DAILY Nitroglycerin 0.4 mg/Hr [Nitro-Dur 0.4 MG/HR] Med 09/20/22 15:00 Active 0.4 mg TOP DAILY Nystatin Powder 15 gm [Nystop Powder 15 gm] Med 09/20/22 14:00 Active See Dose Instructions TOP DAILY PANTOPRAZOLE 40 mg Tablet [Protonix 40MG Tablet] Med 09/20/22 14:00 A ctive 40 mg PO DAILY Pharmacy Dosing Request Med 09/20/22 11:46 Discontinued 1 each MC STAT ONE Remove Patch [Remove Patch Reminder] Med 09/20/22 22:00 Active 1 each TOP HS Ringers Solution,Lactated [Lactated Ringers] 1,000 ml Med 09/20/22 12:00 Active IV 150 mls/hr Ringers Solution,Lactated [Lactated Ringers] 1,000 ml Med 09/21/22 07:26 Active IV 999 mls/hr Ringers Solution,Lactated [Lactated Ringers] 1,000 ml Med 09/21/22 07:49 Active IV 999 mls/hr Ropinirole 2Mg [Requip 2Mg Tab] Med 09/20/22 22:00 Active 3 mg PO QHS Simvastatin 10 mg [Zocor 10MG] Med 09/20/22 22:00 Active 10 mg PO HS Vancomycin/Water For Inj (Peg) [Vancomycin 1 Gram/200 Med 09/21/22 08:00 Ordered ml Bag] 1 gm in 200 ml IV ONCE Verapamil HCl Sr [Isoptin Sr] Med 09/20/22 22:00 Active 180 mg PO BID Patient Care Notes (Last 24 hours) 09/21/22 07:52 Nursing Note by Seble Martel loose bm noted, bath given. Initialized on 09/21/22 07:52 - END OF NOTE 09/21/22 07:22 Nursing Note by Seble Martel pt is oriented x3 and updated on gravity of situation. pt agrees to transfer regardless of how far away, pt says " i wanna get better". Initialized on 09/21/22 07:22 - END OF NOTE 09/21/22 07:11 Nursing Note by Seble Martel dr updated on labs and vitals, orders to transfer to first available bed. at this time, [facility] are on diversion but [place] is finding an accepting hospitalist. Initialized on 09/21/22 07:11 - END OF NOTE 09/21/22 06:24 Nursing Note by Hui Valenzuela 0630 for past hour patients respirations have changed although o2 sat has not. sat remains between 90-95. pt having pursed lip breathing. respiratory therapy consulted and evaluating patient now Initialized on 09/21/22 06:24 - END OF NOTE 09/20/22 11:45 (created 09/20/22 13:07) Nursing Note by Seble Martel dr at bedside rounding on pt. updated on pt continuous copious amounts of liquid diarrhea. new orders for lr @ 150, will add flagyl and imodium. Initialized on 09/20/22 13:07 - END OF NOTE Code(s): A41.9 - SEPSIS, UNSPECIFIED ORGANISM; I95.9 - HYPOTENSION, UNSPECIFIED (2) Sigmoid diverticulitis Current Visit: Yes Status: Acute Assessment & Plan: Medication Report Acetaminophen (Acetaminophen 325 Mg Tablet) 975 mg PO Q6H PRN PRN PRN Reason: FEVER Stop: 10/20/22 03:37 Last Admin: 09/21/22 04:02 Dose: 975 mg Documented by: DIMAS MAR PAIN Document 09/21/22 04:02 (Rec: 09/21/22 04:02 [id number]) Reassesment Pain Scale Used 0-10 Pain Scale Comment given for sustained temperature Re-Assess: Pain Reassessment Document 09/21/22 04:32 (Rec: 09/21/22 04:41 [id number]) Pain Description Pain Scale Used 0-10 Pain Scale Comment given for fever Aspirin (Aspirin 325 Mg Tablet.Ec) 325 mg PO DAILY TED Stop: 10/20/22 13:59 Last Admin: 09/20/22 13:50 Dose: Not Given Documented by: NO Non-Admin Reason: Patient Asleep Bumetanide (Bumetanide 1 Mg Tablet) 2 mg PO DAILY TED Stop: 10/20/22 13:59 Last Admin: 09/20/22 13:50 Dose: Not Given Documented by: NO Non-Admin Reason: Decreased Blood Pressure Clonidine (Clonidine Hcl 0.1 Mg Tablet) 0.1 mg PO BID TED Stop: 10/20/22 21:59 Last Admin: 09/20/22 20:46 Dose: Not Given Documented by: Non-Admin Reason: Decreased Blood Pressure Enoxaparin Sodium (Enoxaparin Sodium 40 Mg/0.4 Ml Syringe) 40 mg SQ DAILY TED Stop: 10/20/22 09:59 Last Admin: 09/20/22 09:43 Dose: 40 mg Documented by: NO Gabapentin (Gabapentin 300 Mg Capsule) 600 mg PO BID TED Stop: 10/20/22 13:59 Last Admin: 09/20/22 22:12 Dose: 600 mg Documented by: Meropenem 1 gm/ Sodium (Chloride) 100 mls @ 200 mls/hr IV Q8HT [facility] Stop: 09/22/22 22:38 Last Admin: 09/21/22 05:03 Dose: 200 mls/hr Documented by: DIMAS Norepinephrine/Dextrose (Norepinephrine 8 Mg/250 Ml-D5w) 8 mg in 250 mls @ 15 mls/hr IV .[id number] PRN; Protocol PRN Reason: HYPOTENSION Stop: 10/19/22 22:38 Last Titration: 09/21/22 07:56 Dose: 28 mcg/min, 52.5 mls/hr Documented by: NO Infusion/Titration Document 09/21/22 07:56 NO (Rec: 09/21/22 07:56 NO [id number]) Dosing & Rate Titration Dose 28 IV Rate 52.5 Increase/Decrease Running Cumulative Dose 2.368 IV Intake Container Volume 70 Infusion Intake 46 Cumulative Intake (Bag) 180 Cumulative Intake (Rx) 830 Volume Adjustment/Waste 0 Lactated Ringer's (Lactated Ringers) 1,000 mls @ 150 mls/hr IV .Q6H40M [facility] Stop: 10/20/22 11:59 Last Admin: 09/21/22 00:39 Dose: 150 mls/hr Documented by: Infusion/Titration Document 09/21/22 00:39 MS (Rec: 09/21/22 00:40 MS [id number]) Dosing & Rate IV Rate 150 Increase/Decrease Started/Running Cumulative Dose Not Applicable IV Intake Container Volume 1,000 Cumulative Intake (Rx) 1,753 Volume Adjustment/Waste 0 Metronidazole (Flagyl 500 Mg Ivpb) 500 mg in 100 mls @ 200 mls/hr IV Q6HT [facility] Stop: 10/20/22 11:59 Last Admin: 09/21/22 06:03 Dose: 200 mls/hr Documented by: DIMAS Lactated Ringer's (Lactated Ringers) 1,000 mls @ 999 mls/hr IV .Q1H1M ONE Stop: 09/21/22 08:26 Last Admin: 09/21/22 07:48 Dose: 999 mls/hr Documented by: NO Infusion/Titration Document 09/21/22 07:48 NO (Rec: 09/21/22 07:48 NO [id number]) Dosing & Rate IV Rate 999 Increase/Decrease Started Cumulative Dose Not Applicable IV Intake Container Volume 1,000 Volume Adjustment/Waste 0 Ibuprofen (Ibuprofen 600 Mg Tablet) 600 mg PO Q6H PRN PRN PRN Reason: FEVER Stop: 10/20/22 03:38 Last Admin: 09/21/22 07:34 Dose: 600 mg Documented by: NO Insulin Human Lispro (Insulin Lispro 1 Unit) 9 unit SQ AC [facility] Stop: 10/20/22 16:29 Last Admin: 09/21/22 07:03 Dose: Not Given Documented by: NO Non-Admin Reason: Low Glucose MAR GLUCOSE CHECK Document 09/21/22 07:03 NO (Rec: 09/21/22 07:03 NO [id number]) POCT Blood Glucose POCT Glucose (Last Value) 144 mg/dL (74 to 106) H Lisinopril (Lisinopril 20 Mg Tablet) 20 mg PO QHS [facility] Stop: 10/20/22 21:59 Last Admin: 09/20/22 20:48 Dose: Not Given Documented by: Non-Admin Reason: Decreased Blood Pressure Lisinopril (Lisinopril 5 Mg Tablet) 5 mg PO QHS [facility] Stop: 10/20/22 21:59 Last Admin: 09/20/22 20:48 Dose: Not Given Documented by: Non-Admin Reason: Decreased Blood Pressure Loperamide HCl (Loperamide Hcl 2 Mg Capsule) 2 mg PO PRN PRN PRN Reason: DIARRHEA Stop: 10/20/22 11:54 Last Admin: 09/21/22 07:34 Dose: 2 mg Documented by: NO Mirabegron (Mirabegron 25 Mg Tab.Er.24h) 50 mg PO DAILY TED Stop: 10/20/22 13:59 Last Admin: 09/20/22 13:50 Dose: Not Given Documented by: NO Non-Admin Reason: anderson Nitroglycerin (Nitroglycerin 0.4 Mg Patch) 0.4 mg TOP DAILY TED Stop: 10/20/22 14:59 Last Admin: 09/20/22 14:53 Dose: Not Given Documented by: NO Non-Admin Reason: Decreased Blood Pressure Non-Formulary Medication (Remove Patch 1 Each) 1 each TOP HS TED Stop: 10/20/22 21:59 Last Admin: 09/20/22 20:47 Dose: Not Given Documented by: Non-Admin Reason: no patch in place Nystatin (Nystatin 15 Gm Powder) 0 gm TOP DAILY TED Stop: 10/20/22 13:59 Last Admin: 09/20/22 13:56 Dose: 1 gm Documented by: NO [facility] TOPICAL APPLICATION SITE Document 09/20/22 13:56 NO (Rec: 09/20/22 13:57 NO [id number]) Application Site Other uynder breawsts Pantoprazole Sodium (Protonix (Pantoprazole) 40 Mg Tablet) 40 mg PO DAILY TED Stop: 10/20/22 13:59 Last Admin: 09/20/22 13:56 Dose: 40 mg Documented by: NO Ropinirole HCl (Ropinirole Hcl 2 Mg Tablet) 3 mg PO QHS TED Stop: 10/20/22 21:59 Last Admin: 09/20/22 22:12 Dose: 3 mg Documented by: Fluticasone/Salmeterol (Fluticasone/Salmeterol 115/21 - 120 Puff Common Canister) 2 puff IH BIDRT TED Stop: 10/20/22 06:59 Last Admin: 09/21/22 06:35 Dose: 2 puff Documented by: SPEEDY Faulkner MDI Document 09/21/22 06:35 SPEEDY (Rec: 09/21/22 06:37 SPEEDY [id number]) MDI MDI Initial MDI Adv 2 Puffs Spacer Used Yes Rinsed Mouth After MDI-RT Yes Simvastatin (Simvastatin 10 Mg Tablet) 10 mg PO HS TED Stop: 10/20/22 21:59 Last Admin: 09/20/22 22:12 Dose: 10 mg Documented by: Verapamil HCl (Verapamil Hcl Sr 180 Mg Tablet.Sa) 180 mg PO BID TED Stop: 10/20/22 21:59 Last Admin: 09/20/22 20:46 Dose: Not Given Documented by: Non-Admin Reason: Decreased Blood Pressure Discontinued Medications Acetaminophen (Acetaminophen 325 Mg Tablet) 650 mg PO STAT [facility] Stop: 09/19/22 19:39 Last Admin: 09/19/22 19:41 Dose: 650 mg Documented by: NICOLE Medication Administration (PO Document 09/19/22 19:41 KB (Rec: 09/19/22 19:42 KB [id number]) Medication Administration PO Med Administration Yes [facility] PAIN Document 09/19/22 19:41 KB (Rec: 09/19/22 19:42 KB [id number]) Reassesment Pain Scale Used 0-10 Pain Scale Pain Intensity (0-10) 2 Acetaminophen (Acetaminophen 325 Mg Tablet) 650 mg PO Q4H PRN PRN PRN Reason: PAIN, FEVER, HEADACHE Stop: 10/19/22 22:38 Last Admin: 09/20/22 00:10 Dose: 650 mg Documented by: MS OLIVA PAIN Document 09/20/22 00:10 MS (Rec: 09/20/22 00:10 MS [id number]) Reassesment Comment fever 102.2 Re-Assess: Pain Reassessment Document 09/20/22 00:40 MS (Rec: 09/20/22 01:10 MS [id number]) Pain Description Comment TEMP 102.6 Sodium Chloride (Sodium Chloride 0.9% 1000 Ml) 1,000 mls @ 100 mls/hr IV .Q10H TED Stop: 10/19/22 16:59 Last Admin: 09/19/22 17:30 Dose: 100 mls/hr Documented by: NICOLE Med Admininistration (IV,IVP) Document 09/19/22 17:30 KB (Rec: 09/19/22 17:30 KB [id number]) Type of Administration Initial IV Push No Infusion/Titration Document 09/19/22 17:30 KB (Rec: 09/19/22 17:30 KB [id number]) Dosing & Rate IV Rate 100 Increase/Decrease Started Cumulative Dose Not Applicable IV Intake Container Volume 1,000 Volume Adjustment/Waste 0 Meropenem 1 gm/ Sodium (Chloride) 100 mls @ 200 mls/hr IV STAT ONE Stop: 09/19/22 18:38 Last Admin: 09/19/22 18:24 Dose: 200 mls/hr Documented by: MICHAEL Med Admininistration (IV,IVP) Document 09/19/22 18:24 MICHAEL (Rec: 09/19/22 18:24 MICHAEL [id number]) Type of Administration Initial IV Push No IV Push-Addtl Different Drug Yes Norepinephrine/Dextrose (Norepinephrine 8 Mg/250 Ml-D5w) 8 mg in 250 mls @ 15 mls/hr IV .[id number] PRN; Protocol PRN Reason: HYPOTENSION Stop: 10/19/22 18:08 Last Admin: 09/19/22 18:24 Dose: 8 mcg/min, 15 mls/hr Documented by: MICHAEL Med Admininistration (IV,IVP) Document 09/19/22 18:24 MICHAEL (Rec: 09/19/22 18:24 MICHAEL [id number]) Type of Administration Initial IV Push No Infusion/Titration Document 09/19/22 18:24 MICHAEL (Rec: 09/19/22 18:24 MICHAEL [id number]) Dosing & Rate Titration Dose 8 IV Rate 15 Increase/Decrease Started IV Intake Container Volume 250 Volume Adjustment/Waste 0 Sodium Chloride (Sodium Chloride 0.9% 1000 Ml) 1,000 mls @ 999 mls/hr IV .Q1H1M [facility] Stop: 09/19/22 19:59 Last Infusion: 09/19/22 20:48 Dose: 0 mls/hr Documented by: MM Infusion/Titration Document 09/19/22 20:48 MM (Rec: 09/19/22 20:48 MM [id number]) Dosing & Rate IV Rate 0 Increase/Decrease Infused Cumulative Dose Not Applicable IV Intake Container Volume 0 Infusion Intake 1,000 Cumulative Intake (Bag) 1,000 Cumulative Intake (Rx) 1,000 Volume Adjustment/Waste 0 Sodium Chloride (Sodium Chloride 0.9% 1000 Ml) 1,000 mls @ 999 mls/hr IV .Q1H1M STA Stop: 09/19/22 21:27 Last Infusion: 09/19/22 22:25 Dose: 0 mls/hr Documented by: MM Infusion/Titration Document 09/19/22 22:25 MM (Rec: 09/19/22 22:25 MM [id number]) Dosing & Rate IV Rate 0 Increase/Decrease Infused Cumulative Dose Not Applicable IV Intake Container Volume 0 Infusion Intake 1,000 Cumulative Intake (Bag) 1,000 Cumulative Intake (Rx) 1,000 Volume Adjustment/Waste 0 Sodium Chloride (Sodium Chloride 0.9% 1000 Ml) 1,000 mls @ 125 mls/hr IV .Q8H TED Stop: 10/19/22 22:38 Last Admin: 09/20/22 05:47 Dose: 125 mls/hr Documented by: MS Infusion/Titration Document 09/20/22 05:47 MS (Rec: 09/20/22 05:47 MS [id number]) Dosing & Rate IV Rate 125 Increase/Decrease Started/Running Cumulative Dose Not Applicable IV Intake Container Volume 1,000 Cumulative Intake (Rx) 704 Volume Adjustment/Waste 0 Ibuprofen (Ibuprofen 600 Mg Tablet) 600 mg PO STAT ONE Stop: 09/19/22 21:11 Last Admin: 09/19/22 21:12 Dose: 600 mg Documented by: MM Medication Administration (PO Document 09/19/22 21:12 MM (Rec: 09/19/22 21:12 MM [id number]) Medication Administration PO Med Administration Yes MAR PAIN Document 09/19/22 21:12 MM (Rec: 09/19/22 21:12 MM [id number]) Reassesment Comment fever Non-Formulary Medication (Pharmacy Dosing Request) 1 each MC STAT ONE Stop: 09/20/22 11:47 Last Admin: 09/20/22 12:11 Dose: 1 each Documented by: NO Code(s): K57.32 - DVTRCLI OF LG INT W/O PERFORATION OR ABSCESS W/O BLEEDING (3) Altered mental status Current Visit: Yes Status: Acute Code(s): R41.82 - ALTERED MENTAL STATUS, UNSPECIFIED (4) Diabetes mellitus Current Visit: No Status: Acute Code(s): E11.9 - TYPE 2 DIABETES MELLITUS WITHOUT COMPLICATIONS - Discharge Disposition: DC TO [facility] Condition: Fair Prescriptions: No Action Nitroglycerin [Nitroglycerin Patch] 1 patch TOP DAILY Pravastatin Sodium 20 mg PO [facility] Verapamil HCl Sr [Isoptin Sr] 180 mg PO BID Bumetanide [Bumex] 2 mg PO DAILY Aspirin EC 325 mg [Ecotrin 325 MG] 325 mg PO DAILY Bisacodyl 5 mg [Dulcolax 5 mg] 5 mg PO BID PRN PRN PRN Reason: Constipation Nystatin 1 applic TOP DAILY Hydroxyzine HCl 25 mg [Atarax 25 mg] 25 mg PO TIDPRN PRN PRN Reason: Leg Cramps Insulin Aspart [NovoLOG Insulin] 9 units SQ AC lisinopriL [Lisinopril] 20 mg PO QHS Lisinopril 5 mg [Zestril 5 MG] 5 mg PO QHS Ropinirole HCl 3 mg PO QHS Gabapentin 600 mg PO BID Clonidine HCl 0.1 mg [Clonidine 0.1 mg Tablet] 0.1 mg PO BID Omeprazole 20 mg PO DAILY Mirabegron [Myrbetriq] 50 mg PO DAILY Dapagliflozin Propanediol [Farxiga] 10 mg PO DAILY Linaclotide [Linzess] 290 mcg PO DAILY Follow up with: GABRIELLA ORTEGA MD [Primary Care Provider] -
[2022-09-21] MEDS: ISOPTIN SR PO SCH (08:46)
[2022-09-21] MEDS: NYSTOP POWDER 15 GM TOP SCH (08:46)
[2022-09-21] MEDS: MYRBETRIQ PO SCH (08:46)
[2022-09-21] MEDS: Nitro-Dur 0.4 MG/HR TOP SCH (08:46)
[2022-09-21] MEDS: CLONIDINE 0.1 MG TABLET PO SCH (08:46)
[2022-09-21] MEDS: BUMEX 1 MG PO SCH (08:46)
[2022-09-21] MEDS: Protonix 40MG Tablet PO SCH (09:02)
[2022-09-21] MEDS: Ecotrin 325 MG PO SCH (09:02)
[2022-09-21] MEDS: ENOXAPARIN SODIUM SQ SCH (09:02)
[2022-09-21 09:06] VITALS: O2SAT 95
[2022-09-21] MEDS: NEURONTIN PO SCH (09:06)
[2022-09-21 09:58] VITALS: BP 81/50
[2022-09-21] MEDS ORDERED: NITRO-DUR 0.1MG/HR TOP SCH (10:00)
[2022-09-21] MEDS ORDERED: NON-FORMULARY ITEM (Linaclotide [Linzess] 290 MCG Capsule) PO SCH (10:00)
[2022-09-21] MEDS ORDERED: NON-FORMULARY ITEM (Omeprazole [Omeprazole] 20 MG Capsule.Dr) PO SCH (10:00)
[2022-09-21] MEDS ORDERED: NON-FORMULARY ITEM (Bumetanide [Bumex] 2 MG Tablet) PO SCH (10:00)
[2022-09-21] MEDS ORDERED: NON-FORMULARY ITEM (Mirabegron [Myrbetriq] 50 MG Tab.Er.24h) PO SCH (10:00)
[2022-09-21] MEDS ORDERED: NON-FORMULARY ITEM (Dapagliflozin Propanediol [Farxiga] 10 MG Tablet) PO SCH (10:00)
[2022-09-21] MEDS ORDERED: NON-FORMULARY ITEM (Nystatin [Nystatin] 1 EACH Powder.Ea.) TOP SCH (10:00)
[2022-09-21 12:08] LABS: Lymphocytes 9 % (24-44); Metamyelocyte 2 %; Monocyte 10 % (0.0-12.0); Neutrophils 79 % (36.0-66.0); Total Cells Counted 100
[2022-09-21 12:09] LABS: Platelet Estimate NORMAL (NORMAL)
== END 2022-09-21 10:10 | disposition home or self-care (01) | DRG 872 ==
LOC: ED 16:36 → ICU 22:23
PROVIDERS: ADMIT General Practice; ATTEND Family Medicine
DX: A41.9 Sepsis, unspecified organism (principal); K57.32 Diverticulitis of large intestine without perforation or abscess without bleeding; I95.9 Hypotension, unspecified; R41.82 Altered mental status, unspecified; I10 Essential (primary) hypertension; E11.9 Type 2 diabetes mellitus without complications; E78.5 Hyperlipidemia, unspecified; Z79.899 Other long term (current) drug therapy; Z20.828 Contact with and (suspected) exposure to other viral communicable diseases; Z12.31 Encounter for screening mammogram for malignant neoplasm of breast
CPT/HCPCS: 0241U; 36000; 36415; 51702; 70450; 71260; 74176; 77063; 77067; 80048; 80053; 80307; 81001; 82140; 82947; 83605; 83735; 83880; 84134; 84484; 85025; 85379; 87040; 87077; 87086; 87186; 87493; 93005; 93041; 94640; 94760; 96360; 96361; 96365; 96374; 99285; 99291; 96375; J1650; A9270-GY; J3370

== ENCOUNTER 2024-04-18 10:52 | Observation (INO) | payer MEDICARE, OTHER ==
--- NOTE | 2024-04-18 11:11 | ERPHSYRPT ---
- History of Present Illness Time Seen by Provider: 04/18/24 11:10 Source: patient, family Exam Limitations: no limitations Patient Subjective Stated Complaint: swelling and redness to BLE, grater in the rt Triage Nursing Assessment: pt came into the er via wheelchair; pt is axo x4; c/o BLE swelling; pt states pain to BLE; redness present to rt RLE; strong kerry pedal pulses; slight edema present to BLE; no respiratory distress present; skin PDW; vitals wnl Physician History: This is an obese 78-year-old white female patient who arrives by private vehicle from home secondary to bilateral lower extremity pain and swelling as well as redness. Patient denies trauma to her bilateral lower extremities. She is on aspirin only but no anticoagulation therapy. Her symptoms of what appears to be cellulitis is more significant in the right lower extremity than the left lower extremity. Patient has a history of having sepsis in the past. Patient denies chest pain. Patient denies shortness of breath. Patient has a history of restless leg syndrome, hypertension, obesity, insulin-dependent diabetes, gastroesophageal reflux disease, hyperlipidemia, COPD, sleep apnea and chronic renal disease as well as peripheral neuropathy. Patient does not want any type or level of pain medicine at this time. Timing/Duration: day(s) (2) Severity: moderate Associated Symptoms: denies symptoms Allergies/Adverse Reactions: sulfamethoxazole [From Bactrim] Allergy (Verified 09/19/22 23:00) itching, SOB trimethoprim [From Bactrim] Allergy (Verified 09/19/22 23:00) zinc Adverse Reaction (Mild, Verified 09/19/22 23:00) Rash zinc oxide Adverse Reaction (Mild, Verified 09/19/22 23:00) Rash satin tape Allergy (Uncoded 09/19/22 23:00) Home Medications: Pravastatin Sodium 20 mg PO QHS 05/05/14 [History] Insulin Aspart [NovoLOG Insulin] 7 units SQ ACHS 01/02/17 [History] Dapagliflozin Propanediol [Farxiga] 10 mg PO DAILY 09/19/22 [History] Gabapentin 600 mg PO BID 09/19/22 [History] Linaclotide [Linzess] 290 mcg PO DAILY 09/19/22 [History] Mirabegron [Myrbetriq] 50 mg PO DAILY 09/19/22 [History] Omeprazole 20 mg PO DAILY 09/19/22 [History] Ropinirole HCl 3 mg PO QHS 09/19/22 [History] Aspirin [Low Dose Aspirin EC] 81 mg PO DAILY 04/18/24 [History] Cephalexin Mh 500 mg [Keflex 500 mg] 500 mg PO DAILY 04/18/24 [History] Cyclobenzaprine HCl 5 mg PO HS 04/18/24 [History] Folic Acid 1 mg PO DAILY 04/18/24 [History] Insulin Glargine,Hum.rec.anlog [Toujeo Solostar] 20 unit SQ HS 04/18/24 [History] Metoprolol Tartrate 25 mg [Lopressor 25MG Tab] 12.5 mg PO DAILY 04/18/24 [History] Nystatin Cream 30 gm [Nystop 30 gm Cream] 1 applic TOP BID 04/18/24 [History] Semaglutide [Ozempic] 2 mg SQ WEEKLY 04/18/24 [History] Hx Tetanus, Diphtheria Vaccination/Date Given: No Hx Influenza Vaccination/Date Given: Yes Hx Pneumococcal Vaccination/Date Given: Yes Immunizations Up to Date: No Travel Risk - International Travel Have you traveled outside of the country in past 3 weeks: No - Emerging Infectious Disease Are you exhibiting symptoms associated with any current EIDs: No - Review of Systems Constitutional: No Symptoms Eyes: No Symptoms Ears, Nose, & Throat: No Symptoms Respiratory: No Symptoms Cardiac: No Symptoms Abdominal/Gastrointestinal: No Symptoms Genitourinary Symptoms: No Symptoms Musculoskeletal: No Symptoms Skin: Cellulitis (Bilateral lower extremities. Worse on the right than the left) Neurological: No Symptoms Psychological: No Symptoms Endocrine: No Symptoms Hematologic/Lymphatic: No Symptoms Immunological/Allergic: No Symptoms All Other Systems: Reviewed and Negative - Past Medical History Pertinent Past Medical History: Yes Neurological History: Peripheral Neuropathy ENT History: No Pertinent History Cardiac History: Angina, High Cholesterol, Hypertension Respiratory History: COPD, Sleep Apnea Endocrine Medical History: Diabetes Type II Musculoskeletal History: Fractures, Osteoarthritis, Other GI Medical History: GERD, Other History: Renal Disease Psycho-Social History: No Pertinent History Female Reproductive Disorders: No Pertinent History Other Medical History: hx bilateral leg wounds in past, scoliosis of lumbar spine - Past Surgical History Past Surgical History: Yes Neuro Surgical History: No Pertinent History Cardiac: No Pertinent History Respiratory: No Pertinent History Gastrointestinal: Appendectomy Genitourinary: No Pertinent History Musculoskeletal: Other Female Surgical History: Hysterectomy, Other Other Surgical History: D&C. right heel spur removed. gastric sleeve 2018 with 140 pound weight loss - Social History Smoking Status: Never smoker Exposure to second hand smoke: Yes Drug Use: none Patient Lives Alone: No - Social Determinants of Health Will the patient participate in the screening: Yes Do you worry about a steady place to live?: No Do you have any problems with any of the following?: No known problems In the past 12 months,have you had to go without utilities?: No Transportation Issues: No Has anyone in your support network made you feel unsafe?: No Have you or anyone in your house had to go without enough: No - Nursing Vital Signs Nursing Vital Signs: Initial Vital Signs Temperature 97.6 F 04/18/24 10:57 Pulse Rate 69 04/18/24 10:57 Respiratory Rate 18 04/18/24 10:57 Blood Pressure 141/65 04/18/24 10:57 O2 Sat by Pulse Oximetry 97 04/18/24 10:57 Pain Scale Pain Intensity 6 - Physical Exam General Appearance: no apparent distress, alert, anxiety, obese Eye Exam: PERRL/EOMI, eyes nml inspection Ears, Nose, Throat Exam: normal ENT inspection, moist mucous membranes Neck Exam: normal inspection, non-tender, supple, full range of motion Respiratory Exam: normal breath sounds, lungs clear, airway intact, No chest tenderness, No respiratory distress Cardiovascular Exam: regular rate/rhythm, normal heart sounds, normal peripheral pulses Gastrointestinal/Abdomen Exam: soft, normal bowel sounds, No tenderness Pelvic Exam: not done Rectal Exam: not done Back Exam: normal inspection, normal range of motion Extremity Exam: normal range of motion, pelvis stable, swelling (Bilateral lower extremities right worse than left. 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 nml as tested, sensation nml Skin Exam: other (Cellulitis and tenderness bilateral lower extremities as described above) Lymphatic Exam: No adenopathy SpO2 Interpretation: normal SpO2: 97 O2 Delivery: Room Air - Course Nursing assessment & vital signs reviewed: Yes Ordered Tests: Active Orders 24 hr Category Date Time Status IV Insertion STAT Care 04/18/24 11:36 Active VENOUS BILATERAL EXTREMITY [US] Stat Exams 04/18/24 11:37 Completed BLOOD CULTURE Stat Lab 04/18/24 12:35 Received CBC W DIFF Stat Lab 04/18/24 11:05 Completed CMP Stat Lab 04/18/24 11:05 Completed Lactic Acid Stat Lab 04/18/24 11:36 Completed Medication Summary Discontinued Medications Generic Name Dose Route Start Last Admin Trade Name Nataliya PRN Reason Stop Dose Admin Ampicillin Sodium/Sulbactam Sodium Confirm 04/18/24 13:04 Ampicillin /Sulbactam 3 G/Vial Administered 04/18/24 13:05 Dose 3 g .ROUTE .STK-MED ONE Ampicillin Sodium/Sulbactam 100 mls @ 300 mls/hr 04/18/24 12:52 04/18/24 13:08 Sodium 3 g/ Sodium Chloride IV 04/18/24 13:11 300 mls/hr STAT ONE Administration Sodium Chloride Confirm 04/18/24 13:04 Sodium Chloride 0.9% Administered 04/18/24 13:05 Dose 100 mls @ ud .ROUTE .STK-MED ONE Lab/Rad Data: Laboratory Result Diagrams 04/18/24 11:05 04/18/24 11:05 Laboratory Results 04/18/24 04/18/24 04/18/24 Range/Units 11:36 11:05 11:05 WBC 9.8 (3.98-10.04) x10^3/uL RBC 3.75 L (3.93-5.22) x10^6/uL Hgb 11.8 (11.2-15.7) g/dL Hct 36.7 (34.1-44.9) % MCV 97.9 H (79.4-94.8) fL MCH 31.5 (25.6-32.2) pg MCHC 32.2 (32.2-35.5) g/dL RDW 14.5 H (11.7-14.4) % Plt Count 103 L (182-369) x10^3/uL MPV 10.0 (9.4-12.3) fL Gran % 65.1 (34.0-71.1) % Immature Gran % (Auto) 0.2 (0.001-0.429) % Nucleat RBC Rel Count 0.0 (0.00-0.2) % Eos # (Auto) 0.10 (0.04-0.36) x10^3/uL Immature Gran # (Auto) 0.02 (0.001-0.031) x10^3u/L Absolute Lymphs (auto) 2.68 (1.18-3.74) x10^3/uL Absolute Monos (auto) 0.60 (0.24-0.86) x10^3/uL Absolute Nucleated RBC 0.00 (0.00-0.012) x10^3u/L Lymphocytes % 27.4 (19.3-51.7) % Monocytes % 6.1 (4.7-12.5) % Eosinophils % 1.0 (0.7-5.8) % Basophils % 0.2 (0.1-1.2) % Absolute Granulocytes 6.35 H (1.56-6.13) x10^3/uL Basophils # 0.02 (0.01-0.08) x10^3/uL Sodium 138 (135-145) mmol/L Potassium 4.0 (3.5-5.1) mmol/L Chloride 107 (98-107) mmol/L Carbon Dioxide 23 (22-30) mmol/L Anion Gap 12.1 (5-15) MEQ/L BUN 25 H (7-17) mg/dL Creatinine 0.99 (0.52-1.04) mg/dL Estimated GFR 57.6 ML/MIN Glucose 120 H (74-106) mg/dL Lactic Acid 1.2 (0.4-2.0) Calcium 9.5 (8.4-10.2) mg/dL Total Bilirubin 1.00 (0.2-1.3) mg/dL AST 36 (14-36) U/L ALT 28 (0-35) U/L Alkaline Phosphatase 95 (38-126) U/L Serum Total Protein 7.4 (6.3-8.2) g/dL Albumin 4.0 (3.5-5.0) g/dL - Progress Progress: improved, pain not gone completely, re-examined Progress Note: 04/18/24 12:18 My medical decision making and the assignment of moderate to high complexity of this patient's medical issue today is based on review of the patient's past medical history, review the patient's medication list, reviewed patient drug allergy list, history present illness and physical findings on examination. The workup in this patient includes placement of intravenous line, blood cultures, CBC, CMP, lactic acid level and venous Dopplers of bilateral lower extremities. Differential diagnosis includes but is not limited to chronic venous stasis disease, cellulitis, DVT 04/18/24 12:25 The lead radiologic technologist reported to me that bilateral lower extremity venous Dopplers are negative for DVT. There is evidence of a tiny Cardoza's cyst right lower extremity. 04/18/24 13:18 Interpreted the patient's laboratory data results. Based on the laboratory data results, the patient does not have an acute, emergent medical issue. The patient does have significant cellulitis that has extended proximally in the last 1 to 2 days. There is associated tenderness and warmth to this area. Patient has a history of sepsis in the past and I think would benefit from being placed in observation. I spoke with Dr. Morfin, our telehospitalist, and reviewed the patient history, presenting complaint, physical findings, and workup results of this patient's medical issue today. We both agree that the patient should be placed in observation in the hospital setting. Discussed with Dr.: Other (Dr. Morfin) Counseled pt/family regarding: lab results, diagnosis, rad results Medical Desision Making - Independent Historian Additional History obtained from: Family - Diagnostic Testing Diagnostic test were ordered, analyzed, and reviewed by me: Yes Radiological Interpretation: Reviewed by me, Teleradiologist Report - Risk of complications The pt has a high risk of morbidity or mortality based on: Decision regarding hospitilization or escalation of hosp level of care - Departure Departure Disposition: Observation Clinical Impression: Bilateral lower leg cellulitis Condition: Stable Critical Care Time: No Referrals: [facility] [Primary Care Provider] - Follow up/PCP as directed
[2024-04-18 12:04] LABS: Absolute Neutrophil Ct (ANC) 6.35 x10^3/uL (1.56-6.13); BASOPHIL % 0.2 % (0.1-1.2); Basophil (Absolute #) 0.02 x10^3/uL (0.01-0.08); Hematocrit 36.7 % (34.1-44.9); Hemoglobin 11.8 g/dL (11.2-15.7); IMMATURE GRAN # 0.02 x10^3u/L (0.001-0.031); IMMATURE GRAN % 0.2 % (0.001-0.429); Lymphocyte (Absolute #) 2.68 x10^3/uL (1.18-3.74); Lymphocytes % 27.4 % (19.3-51.7); Mean Cell Volume 97.9 fL (79.4-94.8); Mean Corpuscular Hemoglobin 31.5 pg (25.6-32.2); Mean Corpuscular Hgb Concent. 32.2 g/dL (32.2-35.5); Monocytes % 6.1 % (4.7-12.5); Neutrophil % 65.1 % (34.0-71.1); Platelet Count 103 x10^3/uL (182-369); Red Blood Count 3.75 x10^6/uL (3.93-5.22); Red Cell Distribution Width 14.5 % (11.7-14.4); White Blood Count 9.8 x10^3/uL (3.98-10.04)
[2024-04-18 12:16] LABS: ANION GAP 12.1 MEQ/L (5-15); Calcium 9.5 mg/dL (8.4-10.2); Creatinine 1 0.99 mg/dL (0.52-1.04); EST GLOMERULAR FILTRATION RATE 57.6 ML/MIN; Total Protein 7.4 g/dL (6.3-8.2)
--- NOTE | 2024-04-18 12:45 | XRAY ---
Indication: Bilateral leg swelling and pain. 2 dimension sonogram and color Doppler imaging major venous vessels left and right leg performed. Comparison: None No thrombus seen in the examined deep venous vessels left and right leg including greater saphenous vein. Veins demonstrate normal compressibility. Venous waveforms are normal with and without augmentation. Posterior right knee demonstrate 1.7 x 0.6 x 1.1 cm Cardoza's cyst. Impression: Left and right leg negative for DVT. Incidental tiny right Cardoza's cyst.
[2024-04-18] MEDS ORDERED: Sodium Chloride 0.9% 100 ML ONE (13:04)
[2024-04-18] MEDS ORDERED: Unasyn 3 GM Vial ONE (13:04)
[2024-04-18] MEDS: Unasyn 3 GM Vial*** 3 G in Sodium Chloride 0.9% 100 ML IV ONE (13:08)
[2024-04-18] MEDS ORDERED: Zofran 4 MG/2 ML VIAL IV PRN (14:11)
[2024-04-18] MEDS ORDERED: HUMULIN R SQ PRN (14:11)
--- NOTE | 2024-04-18 15:41 | PCM.HP ---
History of Present Illness - Chief Complaint Chief Complaint: Bilateral lower extremity cellulitis Date: 04/18/24 History of Present Illness: is a 78 year old female with a pmhx of RLS, HTN, DM, GERD, HLD, COPD (RA at baseline), DILCIA, recurrent UTI ( on Keflex prophylactically- Urology Lizeth Bernardo), and peripheral neuropathy who presented to ED 04/18/24 with a three day history of BLE edema, pain, and redness. Patient reports past issues with BLE edema for which she takes Bumex. She denies any fever, open wounds, or drainage. Lab findings unremarkable. Venous doppler negative for DVT. Received Unasyn in the ED. Plan for continued IV abx - Ceftriaxone and triamcinolone. - Review of Systems Constitutional: No Symptoms Eyes: No Symptoms Ears, Nose, & Throat: No Symptoms Respiratory: No Symptoms Cardiac: Edema (BLE R>L 1+/2+ pitting) Abdominal/Gastrointestinal: No Symptoms Genitourinary Symptoms: No Symptoms Musculoskeletal: No Symptoms Skin: Cellulitis (BLE) Neurological: No Symptoms Psychological: No Symptoms Endocrine: No Symptoms Hematologic/Lymphatic: No Symptoms Immunological/Allergic: No Symptoms Medications & Allergies Home Medications: Home Medication List Pravastatin Sodium 20 mg PO QHS 05/05/14 [History Confirmed 04/18/24] Insulin Aspart [NovoLOG Insulin] 7 units SQ ACHS 01/02/17 [History Confirmed 04/18/24] Dapagliflozin Propanediol [Farxiga] 10 mg PO HS 09/19/22 [History Confirmed 04/18/24] Gabapentin 600 mg PO BID 09/19/22 [History Confirmed 04/18/24] Mirabegron [Myrbetriq] 50 mg PO HS 09/19/22 [History Confirmed 04/18/24] Omeprazole 20 mg PO DAILY 09/19/22 [History Confirmed 04/18/24] Ropinirole HCl 3 mg PO QHS 09/19/22 [History Confirmed 04/18/24] Aspirin [Low Dose Aspirin EC] 81 mg PO DAILY 04/18/24 [History Confirmed 04/18/24] Cephalexin Mh 500 mg [Keflex 500 mg] 500 mg PO HS 04/18/24 [History Confirme d 04/18/24] Cyclobenzaprine HCl 5 mg PO HS 04/18/24 [History Confirmed 04/18/24] Folic Acid 1 mg PO DAILY 04/18/24 [History Confirmed 04/18/24] Insulin Glargine,Hum.rec.anlog [Touanna Solostar] 20 unit SQ HS 04/18/24 [History Confirmed 04/18/24] Linaclotide [Linzess] 245 mcg PO DAILY 04/18/24 [History Confirmed 04/18/24] Metoprolol Tartrate 25 mg [Lopressor 25MG Tab] 12.5 mg PO DAILY 04/18/24 [History Confirmed 04/18/24] Nystatin Cream 30 gm [Nystop 30 gm Cream] 1 applic TOP BID 04/18/24 [History Confirmed 04/18/24] Semaglutide [Ozempic] 2 mg SQ WEEKLY 04/18/24 [History Confirmed 04/18/24] Allergies/Adverse Reactions: Allergies Allergy/AdvReac Type Severity Reaction Status Date / Time sulfamethoxazole Allergy Verified 09/19/22 23:00 [From Bactrim] trimethoprim [From Bactrim] Allergy Verified 09/19/22 23:00 zinc AdvReac Mild Rash Verified 09/19/22 23:00 zinc oxide AdvReac Mild Rash Verified 09/19/22 23:00 satin tape Allergy Uncoded 09/19/22 23:00 - Past Medical History Past Medical History: Yes Neurological History: Peripheral Neuropathy ENT History: No Pertinent History Cardiac History: Angina, High Cholesterol, Hypertension Respiratory History: COPD, Sleep Apnea Endocrine Medical History: Diabetes Type II Musculoskelatal History: Fractures, Osteoarthritis, Other GI Medical History: GERD, Other History: Renal Disease Pyscho-Social History: No Pertinent History Reproductive Disorders: No Pertinent History Comment: hx bilateral leg wounds in past, scoliosis of lumbar spine - Past Surgical History Past Surgical History: Yes Neuro Surgical History: No Pertinent History Cardiac History: No Pertinent History Respiratory Surgery: No Pertinent History GI Surgical History: Appendectomy Genitourinary Surgical Hx: No Pertinent History Musculskeletal Surgical Hx: Other Female Surgical History: Hysterectomy, Other Other Surgical History: D&C. right heel spur removed. gastric sleeve 2018 with 140 pound weight loss - Social History Smoking Status: Never smoker Exposure to second hand smoke: Yes Alcohol: None Drug Use: none - Social Determinants of Health Will the patient participate in the screening: Yes Do you worry about a steady place to live?: No Do you have any problems with any of the following?: No known problems In the past 12 months,have you had to go without utilities?: No Have you or anyone in your house had to go without enough: No Transportation Issues: No Has anyone in your support network made you feel unsafe?: No - Physical Exam Vital Signs: Vital Signs - 24 hr Temp Pulse Resp BP BP Pulse Ox 04/18/24 13:22 97 04/18/24 13:01 64 128/57 96 04/18/24 12:31 62 118/87 95 04/18/24 12:00 64 128/63 93 L 04/18/24 11:30 61 114/59 96 04/18/24 11:01 66 122/67 96 04/18/24 10:57 97.6 F 69 18 141/65 97 General Appearance: no apparent distress Neurologic Exam: alert, oriented x 3, cooperative Eye Exam: PERRL/EOMI Ears, Nose, Throat Exam: normal ENT inspection Neck Exam: normal inspection Respiratory Exam: normal breath sounds, lungs clear Cardiovascular Exam: regular rate/rhythm, normal heart sounds Pelvic Exam: not done Rectal Exam: deferred Back Exam: normal inspection Extremity Exam: pedal edema, swelling (BLE R>L 1+/2+ pitting with erythema to mid vela bilaterally) Results - Labs Lab/Micro Results: Lab Results-Last 24 Hours 04/18/24 04/18/24 04/18/24 Range/Units 11:05 11:05 11:36 WBC 9.8 (3.98-10.04) x10^3/uL RBC 3.75 L (3.93-5.22) x10^6/uL Hgb 11.8 (11.2-15.7) g/dL Hct 36.7 (34.1-44.9) % MCV 97.9 H (79.4-94.8) fL MCH 31.5 (25.6-32.2) pg MCHC 32.2 (32.2-35.5) g/dL RDW 14.5 H (11.7-14.4) % Plt Count 103 L (182-369) x10^3/uL MPV 10.0 (9.4-12.3) fL Gran % 65.1 (34.0-71.1) % Immature Gran % (Auto) 0.2 (0.001-0.429) % Nucleat RBC Rel Count 0.0 (0.00-0.2) % Eos # (Auto) 0.10 (0.04-0.36) x10^3/uL Immature Gran # (Auto) 0.02 (0.001-0.031) x10^3u/L Absolute Lymphs (auto) 2.68 (1.18-3.74) x10^3/uL Absolute Monos (auto) 0.60 (0.24-0.86) x10^3/uL Absolute Nucleated RBC 0.00 (0.00-0.012) x10^3u/L Lymphocytes % 27.4 (19.3-51.7) % Monocytes % 6.1 (4.7-12.5) % Eosinophils % 1.0 (0.7-5.8) % Basophils % 0.2 (0.1-1.2) % Absolute Granulocytes 6.35 H (1.56-6.13) x10^3/uL Basophils # 0.02 (0.01-0.08) x10^3/uL Sodium 138 (135-145) mmol/L Potassium 4.0 (3.5-5.1) mmol/L Chloride 107 (98-107) mmol/L Carbon Dioxide 23 (22-30) mmol/L Anion Gap 12.1 (5-15) MEQ/L BUN 25 H (7-17) mg/dL Creatinine 0.99 (0.52-1.04) mg/dL Estimated GFR 57.6 ML/MIN Glucose 120 H (74-106) mg/dL Lactic Acid 1.2 (0.4-2.0) Calcium 9.5 (8.4-10.2) mg/dL Total Bilirubin 1.00 (0.2-1.3) mg/dL AST 36 (14-36) U/L ALT 28 (0-35) U/L Alkaline Phosphatase 95 (38-126) U/L Serum Total Protein 7.4 (6.3-8.2) g/dL Albumin 4.0 (3.5-5.0) g/dL - Radiology Impressions Radiology Exams & Impressions: Radiology Procedures Category Date Time Status VENOUS BILATERAL EXTREMITY [US] Stat Exams 04/18/24 11:37 Completed Assessment/Plan (1) Bilateral lower leg cellulitis Current Visit: Yes Status: Acute Assessment & Plan: -Venous stasis dermatitis vs cellulitis -ronen dial -PCT, ESR, CRP -elevate affected extremities -Wound culture any open areas - none currently on exam -venous doppler negative for DVT -Unasyn in ED, will continue with ceftriaxone/triamcinolone cream Code(s): L03.116 - CELLULITIS OF LEFT LOWER LIMB; L03.115 - CELLULITIS OF RIGHT LOWER LIMB (2) COPD (chronic obstructive pulmonary disease) Current Visit: Yes Status: Acute Assessment & Plan: -RA at baseline -Does not appear to be in exacerbation -continue home meds -NEBs/oxygen as needed (3) HTN (hypertension) Current Visit: Yes Status: Acute Assessment & Plan: -stable, continue home meds Code(s): I10 - ESSENTIAL (PRIMARY) HYPERTENSION (4) HLD (hyperlipidemia) Current Visit: Yes Status: Acute Assessment & Plan: -continue statin Code(s): E78.5 - HYPERLIPIDEMIA, UNSPECIFIED (5) Peripheral neuropathy Current Visit: Yes Status: Acute Assessment & Plan: -continue gabapentin Code(s): G62.9 - POLYNEUROPATHY, UNSPECIFIED (6) Diabetes mellitus Current Visit: No Status: Acute Qualifiers: Diabetes mellitus type: type 2 Diabetes mellitus complication status: with kidney complications Diabetes mellitus complication detail: with chronic k idney disease Chronic kidney disease stage: stage 3 (moderate) Assessment & Plan: -ADA diet -A1c -SSI VTE: lovenox PPI: omeprazole Dispo: 1-2 days Code status: Full Code(s): E11.9 - TYPE 2 DIABETES MELLITUS WITHOUT COMPLICATIONS Telemedicine Encounter - Telemedicine Encounter Telemedicine Encounter: "The entirety of this encounter was performed via Telemedicine" This visit was performed using real-time audio and video connection between my location and thepatients locationwith the assistance of a surrogateat the patients location. Written or verbal consent was obtained from the patient/guardian to perform this visit usingnchrFunangatelemedicine technology. Any patient questions regarding the telemedicine interaction were answered.
[2024-04-18] MEDS ORDERED: HUMALOG SQ PRN (16:00)
[2024-04-18] MEDS ORDERED: NON-FORMULARY ITEM (Insulin Aspart** [Novolog Insulin**] 1 UNIT Unit) SQ SCH (16:30)
[2024-04-18] MEDS: Sodium Chloride 0.9% 1000 ML 1,000 ML IV SCH (16:50)
[2024-04-18] MEDS: Advair Hfa 115/21 Common canister IH SCH (18:31)
[2024-04-18] MEDS: TYLENOL 325 MG PO PRN (18:34)
[2024-04-18] MEDS: Cyclobenzaprine 10 MG PO SCH (21:35)
[2024-04-18] MEDS: REQUIP 2MG TAB PO SCH (21:35)
[2024-04-18] MEDS: MYRBETRIQ PO SCH (21:35)
[2024-04-18] MEDS: NEURONTIN PO SCH (21:35)
[2024-04-18] MEDS: HUMALOG SQ SCH (21:36)
[2024-04-18] MEDS: ZOCOR 20MG PO SCH (21:36)
[2024-04-18] MEDS: NYSTOP POWDER 15 GM TP SCH (21:40)
[2024-04-18] MEDS ORDERED: NON-FORMULARY ITEM (Gabapentin [Gabapentin] 600 MG Tablet) PO SCH (22:00)
[2024-04-18] MEDS ORDERED: NON-FORMULARY ITEM (Mirabegron [Myrbetriq] 50 MG Tab.Er.24h) PO SCH (22:00)
[2024-04-18] MEDS ORDERED: NON-FORMULARY ITEM (Pravastatin Sodium [Pravastatin Sodium] 20 MG Tablet) PO SCH (22:00)
[2024-04-18] MEDS ORDERED: NON-FORMULARY ITEM (Ropinirole Hcl [Ropinirole Hcl] 3 MG Tablet) PO SCH (22:00)
[2024-04-18] MEDS ORDERED: NON-FORMULARY ITEM (Cyclobenzaprine Hcl [Cyclobenzaprine Hcl] 5 MG Tablet) PO SCH (22:00)
[2024-04-19 04:37] LABS: Absolute Neutrophil Ct (ANC) 3.53 x10^3/uL (1.56-6.13); BASOPHIL % 0.3 % (0.1-1.2); Basophil (Absolute #) 0.02 x10^3/uL (0.01-0.08); Eosinophil % 1.8 % (0.7-5.8); Eosinophil (Absolute #) 0.13 x10^3/uL (0.04-0.36); Hematocrit 33.8 % (34.1-44.9); Hemoglobin 10.7 g/dL (11.2-15.7); IMMATURE GRAN # 0.02 x10^3u/L (0.001-0.031); IMMATURE GRAN % 0.3 % (0.001-0.429); Lymphocyte (Absolute #) 3.08 x10^3/uL (1.18-3.74); Lymphocytes % 42.1 % (19.3-51.7); Mean Corpuscular Hgb Concent. 31.7 g/dL (32.2-35.5); Mean Platelet Volume 9.7 fL (9.4-12.3); Monocyte (Absolute #) 0.54 x10^3/uL (0.24-0.86); Monocytes % 7.4 % (4.7-12.5); Neutrophil % 48.1 % (34.0-71.1); Platelet Count 96 x10^3/uL (182-369); Red Blood Count 3.45 x10^6/uL (3.93-5.22); Red Cell Distribution Width 14.5 % (11.7-14.4); White Blood Count 7.3 x10^3/uL (3.98-10.04)
--- NOTE | 2024-04-19 05:08 | PCM.NOTE ---
Date and Time: 04/19/24 0509 Subjective Assessment: is a 78 year old female with a pmhx of RLS, HTN, DM, GERD, HLD, COPD (RA at baseline), DILCIA, recurrent UTI ( on Keflex prophylactically- Urology [facility]), and peripheral neuropathy who presented to ED 04/18/24 with a three day history of BLE edema, pain, and redness. Patient reports past issues with BLE edema for which she takes Bumex. She denies any fever, open wounds, or drainage. Lab findings unremarkable. Venous doppler negative for DVT. Received Unasyn in the ED. Plan for continued IV abx - Ceftriaxone and triamcinolone. Objective Data Vital Signs: Vital Signs - 24 hr Temp Pulse Resp BP BP Pulse Ox 04/19/24 04:00 98.4 F 78 16 145/81 95 04/19/24 00:00 98.1 F 88 16 125/60 98 04/18/24 22:11 95 04/18/24 20:00 98.5 F 76 15 131/63 96 04/18/24 18:31 67 16 94 L 04/18/24 16:40 68 16 94 L 04/18/24 16:02 97.5 F 67 16 181/80 92 L 04/18/24 16:00 97.5 F 67 16 181/80 92 L 04/18/24 13:22 97 04/18/24 13:01 64 128/57 96 04/18/24 12:31 62 118/87 95 04/18/24 12:00 64 128/63 93 L 04/18/24 11:30 61 114/59 96 04/18/24 11:01 66 122/67 96 04/18/24 10:57 97.6 F 69 18 141/65 97 Pain Assessment - Last Documented Pain Intensity 0 Pain Scale Used 0-10 Pain Scale Intake and Output: Intake & Output 04/16/24 04/17/24 04/18/24 04/19/24 11:59 11:59 11:59 11:59 Intake Total 120 Balance 120 Weight 128.7 kg 128.6 kg Lab Results: Lab Results-Last 24 Hours 04/18/24 04/18/24 04/18/24 Range/Units 11:05 11:05 11:30 WBC 9.8 (3.98-10.04) x10^3/uL RBC 3.75 L (3.93-5.22) x10^6/uL Hgb 11.8 (11.2-15.7) g/dL Hct 36.7 (34.1-44.9) % MCV 97.9 H (79.4-94.8) fL MCH 31.5 (25.6-32.2) pg MCHC 32.2 (32.2-35.5) g/dL RDW 14.5 H (11.7-14.4) % Plt Count 103 L (182-369) x10^3/uL MPV 10.0 (9.4-12.3) fL Gran % 65.1 (34.0-71.1) % Immature Gran % (Auto) 0.2 (0.001-0.429) % Nucleat RBC Rel Count 0.0 (0.00-0.2) % Eos # (Auto) 0.10 (0.04-0.36) x10^3/uL Immature Gran # (Auto) 0.02 (0.001-0.031) x10^3u/L Absolute Lymphs (auto) 2.68 (1.18-3.74) x10^3/uL Absolute Monos (auto) 0.60 (0.24-0.86) x10^3/uL Absolute Nucleated RBC 0.00 (0.00-0.012) x10^3u/L Lymphocytes % 27.4 (19.3-51.7) % Monocytes % 6.1 (4.7-12.5) % Eosinophils % 1.0 (0.7-5.8) % Basophils % 0.2 (0.1-1.2) % Absolute Granulocytes 6.35 H (1.56-6.13) x10^3/uL Basophils # 0.02 (0.01-0.08) x10^3/uL ESR 84 H (0-20) mm/hr Sodium 138 (135-145) mmol/L Potassium 4.0 (3.5-5.1) mmol/L Chloride 107 (98-107) mmol/L Carbon Dioxide 23 (22-30) mmol/L Anion Gap 12.1 (5-15) MEQ/L BUN 25 H (7-17) mg/dL Creatinine 0.99 (0.52-1.04) mg/dL Estimated GFR 57.6 ML/MIN Glucose 120 H (74-106) mg/dL POC Glucometer (74 to 106) mg/dL Hemoglobin A1c (4.5-6.0) % Lactic Acid (0.4-2.0) Calcium 9.5 (8.4-10.2) mg/dL Total Bilirubin 1.00 (0.2-1.3) mg/dL AST 36 (14-36) U/L ALT 28 (0-35) U/L Alkaline Phosphatase 95 (38-126) U/L Serum Total Protein 7.4 (6.3-8.2) g/dL Albumin 4.0 (3.5-5.0) g/dL Procalcitonin (0.030-0.080) ng/mL 04/18/24 04/18/24 04/18/24 Range/Units 11:30 11:36 16:41 WBC (3.98-10.04) x10^3/uL RBC (3.93-5.22) x10^6/uL Hgb (11.2-15.7) g/dL Hct (34.1-44.9) % MCV (79.4-94.8) fL MCH (25.6-32.2) pg MCHC (32.2-35.5) g/dL RDW (11.7-14.4) % Plt Count (182-369) x10^3/uL MPV (9.4-12.3) fL Gran % (34.0-71.1) % Immature Gran % (Auto) (0.001-0.429) % Nucleat RBC Rel Count (0.00-0.2) % Eos # (Auto) (0.04-0.36) x10^3/uL Immature Gran # (Auto) (0.001-0.031) x10^3u/L Absolute Lymphs (auto) (1.18-3.74) x10^3/uL Absolute Monos (auto) (0.24-0.86) x10^3/uL Absolute Nucleated RBC (0.00-0.012) x10^3u/L Lymphocytes % (19.3-51.7) % Monocytes % (4.7-12.5) % Eosinophils % (0.7-5.8) % Basophils % (0.1-1.2) % Absolute Granulocytes (1.56-6.13) x10^3/uL Basophils # (0.01-0.08) x10^3/uL ESR (0-20) mm/hr Sodium (135-145) mmol/L Potassium (3.5-5.1) mmol/L Chloride (98-107) mmol/L Carbon Dioxide (22-30) mmol/L Anion Gap (5-15) MEQ/L BUN (7-17) mg/dL Creatinine (0.52-1.04) mg/dL Estimated GFR ML/MIN Glucose (74-106) mg/dL POC Glucometer 103 (74 to 106) mg/dL Hemoglobin A1c (4.5-6.0) % Lactic Acid 1.2 (0.4-2.0) Calcium (8.4-10.2) mg/dL Total Bilirubin (0.2-1.3) mg/dL AST (14-36) U/L ALT (0-35) U/L Alkaline Phosphatase (38-126) U/L Serum Total Protein (6.3-8.2) g/dL Albumin (3.5-5.0) g/dL Procalcitonin 0.140 H (0.030-0.080) ng/mL 04/18/24 04/18/24 04/19/24 Range/Units 17:46 20:25 04:29 WBC 7.3 (3.98-10.04) x10^3/uL RBC 3.45 L (3.93-5.22) x10^6/uL Hgb 10.7 L (11.2-15.7) g/dL Hct 33.8 L (34.1-44.9) % MCV 98.0 H (79.4-94.8) fL MCH 31.0 (25.6-32.2) pg MCHC 31.7 L (32.2-35.5) g/dL RDW 14.5 H (11.7-14.4) % Plt Count 96 L (182-369) x10^3/uL MPV 9.7 (9.4-12.3) fL Gran % 48.1 (34.0-71.1) % Immature Gran % (Auto) 0.3 (0.001-0.429) % Nucleat RBC Rel Count 0.0 (0.00-0.2) % Eos # (Auto) 0.13 (0.04-0.36) x10^3/uL Immature Gran # (Auto) 0.02 (0.001-0.031) x10^3u/L Absolute Lymphs (auto) 3.08 (1.18-3.74) x10^3/uL Absolute Monos (auto) 0.54 (0.24-0.86) x10^3/uL Absolute Nucleated RBC 0.00 (0.00-0.012) x10^3u/L Lymphocytes % 42.1 (19.3-51.7) % Monocytes % 7.4 (4.7-12.5) % Eosinophils % 1.8 (0.7-5.8) % Basophils % 0.3 (0.1-1.2) % Absolute Granulocytes 3.53 (1.56-6.13) x10^3/uL Basophils # 0.02 (0.01-0.08) x10^3/uL ESR (0-20) mm/hr Sodium (135-145) mmol/L Potassium (3.5-5.1) mmol/L Chloride (98-107) mmol/L Carbon Dioxide (22-30) mmol/L Anion Gap (5-15) MEQ/L BUN (7-17) mg/dL Creatinine (0.52-1.04) mg/dL Estimated GFR ML/MIN Glucose (74-106) mg/dL POC Glucometer 166 H (74 to 106) mg/dL Hemoglobin A1c 6.78 H (4.5-6.0) % Lactic Acid (0.4-2.0) Calcium (8.4-10.2) mg/dL Total Bilirubin (0.2-1.3) mg/dL AST (14-36) U/L ALT (0-35) U/L Alkaline Phosphatase (38-126) U/L Serum Total Protein (6.3-8.2) g/dL Albumin (3.5-5.0) g/dL Procalcitonin (0.030-0.080) ng/mL Radiology Exams: Radiology Procedures Category Date Time Status VENOUS BILATERAL EXTREMITY [US] Stat Exams 04/18/24 11:37 Completed Assessment/Plan (1) Bilateral lower leg cellulitis Current Visit: Yes Status: Acute Assessment & Plan: -Venous stasis dermatitis vs cellulitis -ronen borders -PCT, ESR, CRP -elevate affected extremities -Wound culture any open areas - none currently on exam -venous doppler negative for DVT -Unasyn in ED, will continue with ceftriaxone/triamcinolone cream Code(s): L03.116 - CELLULITIS OF LEFT LOWER LIMB; L03.115 - CELLULITIS OF RIGHT LOWER LIMB (2) COPD (chronic obstructive pulmonary disease) Current Visit: Yes Status: Acute Assessment & Plan: -RA at baseline -Does not appear to be in exacerbation -continue home meds -NEBs/oxygen as needed (3) HTN (hypertension) Current Visit: Yes Status: Acute Assessment & Plan: -stable, continue home meds Code(s): I10 - ESSENTIAL (PRIMARY) HYPERTENSION (4) HLD (hyperlipidemia) Current Visit: Yes Status: Acute Assessment & Plan: -continue statin Code(s): E78.5 - HYPERLIPIDEMIA, UNSPECIFIED (5) Peripheral neuropathy Current Visit: Yes Status: Acute Assessment & Plan: -continue gabapentin Code(s): G62.9 - POLYNEUROPATHY, UNSPECIFIED (6) Diabetes mellitus Current Visit: No Status: Acute Qualifiers: Diabetes mellitus type: type 2 Diabetes mellitus complication status: with kidney complications Diabetes mellitus complication detail: with chronic kidney disease Chronic kidney disease stage: stage 3 (moderate) Assessment & Plan: -ADA diet -A1c -SSI VTE: lovenox PPI: omeprazole Dispo: 1-2 days Code status: Full Code(s): E11.9 - TYPE 2 DIABETES MELLITUS WITHOUT COMPLICATIONS Code(s): L03.116 - CELLULITIS OF LEFT LOWER LIMB; L03.115 - CELLULITIS OF RIGHT LOWER LIMB (2) COPD (chronic obstructive pulmonary disease) Current Visit: Yes Status: Acute (3) HTN (hypertension) Current Visit: Yes Status: Acute Code(s): I10 - ESSENTIAL (PRIMARY) HYPERTENSION (4) HLD (hyperlipidemia) Current Visit: Yes Status: Acute Code(s): E78.5 - HYPERLIPIDEMIA, UNSPECIFIED (5) Peripheral neuropathy Current Visit: Yes Status: Acute Code(s): G62.9 - POLYNEUROPATHY, UNSPECIFIED (6) Diabetes mellitus Current Visit: No Status: Acute Qualifiers: Diabetes mellitus type: type 2 Diabetes mellitus complication status: with kidney complications Diabetes mellitus complication detail: with chronic kidney disease Chronic kidney disease stage: stage 3 (moderate) Code(s): E11.9 - TYPE 2 DIABETES MELLITUS WITHOUT COMPLICATIONS
[2024-04-19 05:20] LABS: Creatinine 1 0.87 mg/dL (0.52-1.04); EST GLOMERULAR FILTRATION RATE 67.3 ML/MIN
[2024-04-19 05:21] LABS: ALBUMIN 3.4 g/dL (3.5-5.0); BILIRUBIN,TOTAL 0.6 mg/dL (0.2-1.3); Calcium 8.9 mg/dL (8.4-10.2); Total Protein 6.5 g/dL (6.3-8.2)
[2024-04-19 07:30] VITALS: RESP 18
--- NOTE | 2024-04-19 09:57 | PCM.DS ---
Discharge Summary Date of Admission: 04/18/24 14:10 Date of Discharge: 04/19/24 Admitting Physician: NATALIE SEGOVIA MD Primary Care Provider: [facility] Allergies Allergies sulfamethoxazole [From Bactrim] Allergy (Verified 09/19/22 23:00) itching, SOB trimethoprim [From Bactrim] Allergy (Verified 09/19/22 23:00) zinc Adverse Reaction (Mild, Verified 09/19/22 23:00) Rash zinc oxide Adverse Reaction (Mild, Verified 09/19/22 23:00) Rash satin tape Allergy (Uncoded 09/19/22 23:00) Hospital Summary - Hospital Course Hospital Course: is a 78 year old female with a pmhx of RLS, HTN, DM, GERD, HLD, COPD (RA at baseline), DILCIA, recurrent UTI ( on Keflex prophylactically- Urology [facility]), and peripheral neuropathy who presented to ED 04/18/24 with a three day history of BLE edema, pain, and redness. Patient reports past issues with BLE edema for which she takes Bumex. She denies any fever, open wounds, or drainage. Lab findings unremarkable. Venous doppler negative for DVT. Received Unasyn in the ED. IP treatment with Ceftriaxone and triamcinolone. No overnight events noted. Edema/redness/pain improved. Underlying stasis dermatitis. Advised patient to elevate legs at home. Will send home with cefuroxime and tr iamcinolone cream. Advised follow up with PCP. Discharge Note New Diagnosis: Cellulitis New Medications:cefuroxime and triamcinolone cream Follow Up: pcp Latest Assessment & Plan (1) Bilateral lower leg cellulitis Current Visit: Yes Status: Acute Assessment & Plan: -Venous stasis dermatitis vs cellulitis -ronen dial -PCT, ESR, CRP -elevate affected extremities -Wound culture any open areas - none currently on exam -venous doppler negative for DVT -Unasyn in ED, will continue with ceftriaxone/triamcinolone cream Code(s): L03.116 - CELLULITIS OF LEFT LOWER LIMB; L03.115 - CELLULITIS OF RIGHT LOWER LIMB (2) COPD (chronic obstructive pulmonary disease) Current Visit: Yes Status: Acute Assessment & Plan: -RA at baseline -Does not appear to be in exacerbation -continue home meds -NEBs/oxygen as needed (3) HTN (hypertension) Current Visit: Yes Status: Acute Assessment & Plan: -stable, continue home meds Code(s): I10 - ESSENTIAL (PRIMARY) HYPERTENSION (4) HLD (hyperlipidemia) Current Visit: Yes Status: Acute Assessment & Plan: -continue statin Code(s): E78.5 - HYPERLIPIDEMIA, UNSPECIFIED (5) Peripheral neuropathy Current Visit: Yes Status: Acute Assessment & Plan: -continue gabapentin Code(s): G62.9 - POLYNEUROPATHY, UNSPECIFIED (6) Diabetes mellitus Current Visit: No Status: Acute Qualifiers: Diabetes mellitus type: type 2 Diabetes mellitus complication status: with kidney complications Diabetes mellitus complication detail: with chronic kidney disease Chronic kidney disease stage: stage 3 (moderate) Assessment & Plan: -ADA diet -A1c -SSI I spent 35 minutes [id number] with the patient on the day of discharge performing discharge exam, discussing hospital stay and discharge instructions with patient and caregivers, preparation of discharge records, prescriptions & referral forms and addressing any questions/concerns the patient had as document ed above. - Vitals & Intake/Output Vital Signs: Vital Signs Temperature 97.7 F 04/19/24 07:30 Pulse Rate 61 04/19/24 07:30 Respiratory Rate 18 04/19/24 07:30 Blood Pressure 135/65 04/19/24 07:30 O2 Sat by Pulse Oximetry 99 04/19/24 07:30 Intake & Output: Intake & Output 04/16/24 04/17/24 04/18/24 04/19/24 11:59 11:59 11:59 11:59 Intake Total 360 Balance 360 Weight 128.7 kg 128.6 kg - Lab Result Diagrams: 04/19/24 04:29 04/19/24 04:29 Lab Results-Last 24 Hrs: Lab Results-Last 24 Hours 04/18/24 04/18/24 04/18/24 Range/Units 11:05 11:05 11:30 WBC 9.8 (3.98-10.04) x10^3/uL RBC 3.75 L (3.93-5.22) x10^6/uL Hgb 11.8 (11.2-15.7) g/dL Hct 36.7 (34.1-44.9) % MCV 97.9 H (79.4-94.8) fL MCH 31.5 (25.6-32.2) pg MCHC 32.2 (32.2-35.5) g/dL RDW 14.5 H (11.7-14.4) % Plt Count 103 L (182-369) x10^3/uL MPV 10.0 (9.4-12.3) fL Gran % 65.1 (34.0-71.1) % Immature Gran % (Auto) 0.2 (0.001-0.429) % Nucleat RBC Rel Count 0.0 (0.00-0.2) % Eos # (Auto) 0.10 (0.04-0.36) x10^3/uL Immature Gran # (Auto) 0.02 (0.001-0.031) x10^3u/L Absolute Lymphs (auto) 2.68 (1.18-3.74) x10^3/uL Absolute Monos (auto) 0.60 (0.24-0.86) x10^3/uL Absolute Nucleated RBC 0.00 (0.00-0.012) x10^3u/L Lymphocytes % 27.4 (19.3-51.7) % Monocytes % 6.1 (4.7-12.5) % Eosinophils % 1.0 (0.7-5.8) % Basophils % 0.2 (0.1-1.2) % Absolute Granulocytes 6.35 H (1.56-6.13) x10^3/uL Basophils # 0.02 (0.01-0.08) x10^3/uL ESR 84 H (0-20) mm/hr Sodium 138 (135-145) mmol/L Potassium 4.0 (3.5-5.1) mmol/L Chloride 107 (98-107) mmol/L Carbon Dioxide 23 (22-30) mmol/L Anion Gap 12.1 (5-15) MEQ/L BUN 25 H (7-17) mg/dL Creatinine 0.99 (0.52-1.04) mg/dL Estimated GFR 57.6 ML/MIN Glucose 120 H (74-106) mg/dL POC Glucometer (74 to 106) mg/dL Hemoglobin A1c (4.5-6.0) % Lactic Acid (0.4-2.0) Calcium 9.5 (8.4-10.2) mg/dL Total Bilirubin 1.00 (0.2-1.3) mg/dL AST 36 (14-36) U/L ALT 28 (0-35) U/L Alkaline Phosphatase 95 (38-126) U/L Serum Total Protein 7.4 (6.3-8.2) g/dL Albumin 4.0 (3.5-5.0) g/dL Procalcitonin (0.030-0.080) ng/mL 04/18/24 04/18/24 04/18/24 Range/Units 11:30 11:36 16:41 WBC (3.98-10.04) x10^3/uL RBC (3.93-5.22) x10^6/uL Hgb (11.2-15.7) g/dL Hct (34.1-44.9) % MCV (79.4-94.8) fL MCH (25.6-32.2) pg MCHC (32.2-35.5) g/dL RDW (11.7-14.4) % Plt Count (182-369) x10^3/uL MPV (9.4-12.3) fL Gran % (34.0-71.1) % Immature Gran % (Auto) (0.001-0.429) % Nucleat RBC Rel Count (0.00-0.2) % Eos # (Auto) (0.04-0.36) x10^3/uL Immature Gran # (Auto) (0.001-0.031) x10^3u/L Absolute Lymphs (auto) (1.18-3.74) x10^3/uL Absolute Monos (auto) (0.24-0.86) x10^3/uL Absolute Nucleated RBC (0.00-0.012) x10^3u/L Lymphocytes % (19.3-51.7) % Monocytes % (4.7-12.5) % Eosinophils % (0.7-5.8) % Basophils % (0.1-1.2) % Absolute Granulocytes (1.56-6.13) x10^3/uL Basophils # (0.01-0.08) x10^3/uL ESR (0-20) mm/hr Sodium (135-145) mmol/L Potassium (3.5-5.1) mmol/L Chloride (98-107) mmol/L Carbon Dioxide (22-30) mmol/L Anion Gap (5-15) MEQ/L BUN (7-17) mg/dL Creatinine (0.52-1.04) mg/dL Estimated GFR ML/MIN Glucose (74-106) mg/dL POC Glucometer 103 (74 to 106) mg/dL Hemoglobin A1c (4.5-6.0) % Lactic Acid 1.2 (0.4-2.0) Calcium (8.4-10.2) mg/dL Total Bilirubin (0.2-1.3) mg/dL AST (14-36) U/L ALT (0-35) U/L Alkaline Phosphatase (38-126) U/L Serum Total Protein (6.3-8.2) g/dL Albumin (3.5-5.0) g/dL Procalcitonin 0.140 H (0.030-0.080) ng/mL 04/18/24 04/18/24 04/19/24 Range/Units 17:46 20:25 04:29 WBC 7.3 (3.98-10.04) x10^3/uL RBC 3.45 L (3.93-5.22) x10^6/uL Hgb 10.7 L (11.2-15.7) g/dL Hct 33.8 L (34.1-44.9) % MCV 98.0 H (79.4-94.8) fL MCH 31.0 (25.6-32.2) pg MCHC 31.7 L (32.2-35.5) g/dL RDW 14.5 H (11.7-14.4) % Plt Count 96 L (182-369) x10^3/uL MPV 9.7 (9.4-12.3) fL Gran % 48.1 (34.0-71.1) % Immature Gran % (Auto) 0.3 (0.001-0.429) % Nucleat RBC Rel Count 0.0 (0.00-0.2) % Eos # (Auto) 0.13 (0.04-0.36) x10^3/uL Immature Gran # (Auto) 0.02 (0.001-0.031) x10^3u/L Absolute Lymphs (auto) 3.08 (1.18-3.74) x10^3/uL Absolute Monos (auto) 0.54 (0.24-0.86) x10^3/uL Absolute Nucleated RBC 0.00 (0.00-0.012) x10^3u/L Lymphocytes % 42.1 (19.3-51.7) % Monocytes % 7.4 (4.7-12.5) % Eosinophils % 1.8 (0.7-5.8) % Basophils % 0.3 (0.1-1.2) % Absolute Granulocytes 3.53 (1.56-6.13) x10^3/uL Basophils # 0.02 (0.01-0.08) x10^3/uL ESR (0-20) mm/hr Sodium (135-145) mmol/L Potassium (3.5-5.1) mmol/L Chloride (98-107) mmol/L Carbon Dioxide (22-30) mmol/L Anion Gap (5-15) MEQ/L BUN (7-17) mg/dL Creatinine (0.52-1.04) mg/dL Estimated GFR ML/MIN Glucose (74-106) mg/dL POC Glucometer 166 H (74 to 106) mg/dL Hemoglobin A1c 6.78 H (4.5-6.0) % Lactic Acid (0.4-2.0) Calcium (8.4-10.2) mg/dL Total Bilirubin (0.2-1.3) mg/dL AST (14-36) U/L ALT (0-35) U/L Alkaline Phosphatase (38-126) U/L Serum Total Protein (6.3-8.2) g/dL Albumin (3.5-5.0) g/dL Procalcitonin (0.030-0.080) ng/mL 04/19/24 04/19/24 Range/Units 04:29 06:49 WBC (3.98-10.04) x10^3/uL RBC (3.93-5.22) x10^6/uL Hgb (11.2-15.7) g/dL Hct (34.1-44.9) % MCV (79.4-94.8) fL MCH (25.6-32.2) pg MCHC (32.2-35.5) g/dL RDW (11.7-14.4) % Plt Count (182-369) x10^3/uL MPV (9.4-12.3) fL Gran % (34.0-71.1) % Immature Gran % (Auto) (0.001-0.429) % Nucleat RBC Rel Count (0.00-0.2) % Eos # (Auto) (0.04-0.36) x10^3/uL Immature Gran # (Auto) (0.001-0.031) x10^3u/L Absolute Lymphs (auto) (1.18-3.74) x10^3/uL Absolute Monos (auto) (0.24-0.86) x10^3/uL Absolute Nucleated RBC (0.00-0.012) x10^3u/L Lymphocytes % (19.3-51.7) % Monocytes % (4.7-12.5) % Eosinophils % (0.7-5.8) % Basophils % (0.1-1.2) % Absolute Granulocytes (1.56-6.13) x10^3/uL Basophils # (0.01-0.08) x10^3/uL ESR (0-20) mm/hr Sodium 138 (135-145) mmol/L Potassium 4.0 (3.5-5.1) mmol/L Chloride 109 H (98-107) mmol/L Carbon Dioxide 21 L (22-30) mmol/L Anion Gap 12.0 (5-15) MEQ/L BUN 24 H (7-17) mg/dL Creatinine 0.87 (0.52-1.04) mg/dL Estimated GFR 67.3 ML/MIN Glucose 105 (74-106) mg/dL POC Glucometer 88 (74 to 106) mg/dL Hemoglobin A1c (4.5-6.0) % Lactic Acid (0.4-2.0) Calcium 8.9 (8.4-10.2) mg/dL Total Bilirubin 0.60 (0.2-1.3) mg/dL AST 27 (14-36) U/L ALT 22 (0-35) U/L Alkaline Phosphatase 95 (38-126) U/L Serum Total Protein 6.5 (6.3-8.2) g/dL Albumin 3.4 L (3.5-5.0) g/dL Procalcitonin (0.030-0.080) ng/mL Micro Results-Entire Visit: Accuchecks Date 04/19/24 - Radiology Exams Ordered Rad Exams-Entire Visit: Radiology Procedures Category Date Time Status VENOUS BILATERAL EXTREMITY [US] Stat Exams 04/18/24 11:37 Completed - Procedures and Test Procedures and Tests throughout Hospitalization: Therapy Orders & Screens 04/18/24 16:31 OT Screen per Nursing Assess ONCE Comment: Protocol Order Physician Instructions: Greater than 3 points order OT Admission Screening Reason For Exam: Triggered on Admission Diagnosis: Bilateral lower extremity cellulitis Open Wound/Cellutlitis/Pressure Ulcers: Yes: BLE Acute Fx/ORIF/Change in wt bearing status: No Severe MUSCULOSKELETAL pain: No ADL Dysfunction: No Acute CVA w/Hemiparesis/Hemiplegia: No Decreased Functional Mobility/Strength: No Sprain/Strain: No Acute Post-op Mobility Dysfunction: No Total Points: 5 PT Screen per Nursing Assess ONCE Comment: Protocol Order Physician Instructions: Greater than 3 points order PT Admission Screenin Reason For Exam: Triggered on Admission Diagnosis: Bilateral lower extremity cellulitis Open Wound/Cellutlitis/Pressure Ulcers: Yes: BLE Acute Fx/ORIF/Change in wt bearing status: No Severe MUSCULOSKELETAL pain: No ADL Dysfunction: No Acute CVA w/Hemiparesis/Hemiplegia: No Decreased Functional Mobility/Strength: No Sprain/Strain: No Acute Post-op Mobility Dysfunction: No Total Points: 5 RT Screen per Nursing Assess ONCE Comment: Protocol Order Physician Instructions: Greater than 3 points order RT Admission Screen Reason For Exam: Triggered on Admission Diagnosis: Bilateral lower extremity cellulitis Diagnosis: Bilateral lower extremity cellulitis Pneumonia: No Home O2: Yes: 2L HS Asthma: No CHF: No Home CPAP/BIPAP: No Home Nebs/MDI: Yes: SYMBICORT Total Points: 10 04/18/24 16:43 Respiratory Therapy Assessment DAILY Comment: Diagnosis: Bilateral lower extremity cellulitis 04/18/24 16:44 Oxygen NASAL CANNULA 2 lpm Comment: Diagnosis: Bilateral lower extremity cellulitis Discharge Exam General Appearance: no apparent distress Neurologic Exam: alert, oriented x 3, cooperative Eye Exam: PERRL Ears, Nose, Throat Exam: normal ENT inspection Neck Exam: normal inspection Respiratory Exam: normal breath sounds, lungs clear Cardiovascular Exam: regular rate/rhythm, normal heart sounds Gastrointestinal/Abdomen Exam: soft, normal bowel sounds Pelvic Exam: deferred Rectal Exam: deferred Back Exam: normal inspection Skin Exam: other (BLE edema +2 pitting) Final Diagnosis/Problem List - Final Discharge Diagnosis/Problem (1) Bilateral lower leg cellulitis Current Visit: Yes Status: Acute Code(s): L03.116 - CELLULITIS OF LEFT LOWER LIMB; L03.115 - CELLULITIS OF RIGHT LOWER LIMB (2) COPD (chronic obstructive pulmonary disease) Current Visit: Yes Status: Chronic (3) HTN (hypertension) Current Visit: Yes Status: Chronic Code(s): I10 - ESSENTIAL (PRIMARY) HYPERTENSION (4) HLD (hyperlipidemia) Current Visit: Yes Status: Chronic Code(s): E78.5 - HYPERLIPIDEMIA, UNSPECIFIED (5) Peripheral neuropathy Current Visit: Yes Status: Chronic Code(s): G62.9 - POLYNEUROPATHY, UNSPECIFIED (6) Diabetes mellitus Current Visit: No Status: Chronic Code(s): E11.9 - TYPE 2 DIABETES MELLITUS WITHOUT COMPLICATIONS - Discharge Disposition: Home, Self-Care Condition: Stable Prescriptions: New Triamcinolone 0.1% Cream [Kenalog 0.1% Cream 15 gm] See Rx Instructions .ROUTE .COMPLEX 7 Days #1 misc Cefuroxime Axetil [Cefuroxime] 500 mg PO BID 5 Days #10 tablet Continue Pravastatin Sodium 20 mg PO QHS Insulin Aspart [NovoLOG Insulin] 7 units SQ ACHS Ropinirole HCl 3 mg PO QHS Gabapentin 600 mg PO BID Omeprazole 20 mg PO DAILY Mirabegron [Myrbetriq] 50 mg PO HS Dapagliflozin Propanediol [Farxiga] 10 mg PO HS Nystatin Cream 30 gm [Nystop 30 gm Cream] 1 applic TOP BID Cyclobenzaprine HCl 5 mg PO HS Metoprolol Tartrate 25 mg [Lopressor 25MG Tab] 12.5 mg PO DAILY Folic Acid 1 mg PO DAILY Aspirin [Low Dose Aspirin EC] 81 mg PO DAILY Semaglutide [Ozempic] 2 mg SQ WEEKLY Insulin Glargine,Hum.rec.anlog [Armani Espino] 20 unit SQ HS Linaclotide [Linzess] 245 mcg PO DAILY Budesonide/Formoterol Fumarate [Budesonide-Formoterol 160-4.5] 10.2 gm IH BID Discontinued Cephalexin Mh 500 mg [Keflex 500 mg] 500 mg PO HS Additional Instructions: Hold prophylactic Keflex until Cefuroxime is complete Follow up with: GABRIELLA ORTEGA MD [ACTIVE STAFF] - 04/27/24 10:45 am
[2024-04-19] MEDS ORDERED: NON-FORMULARY ITEM (Omeprazole [Omeprazole] 20 MG Capsule.Dr) PO SCH (10:00)
[2024-04-19] MEDS ORDERED: NON-FORMULARY ITEM (Budesonide/Formoterol Fumarate [Budesonide-Formoterol 160-4.5] 10.2 GM IH SCH (10:00)
[2024-04-19] MEDS: ENOXAPARIN SODIUM SQ SCH (10:04)
[2024-04-19] MEDS: ROCEPHIN 1 GM / 100 ML NaCl 1 GM/100 ML IVPB IV SCH (10:04)
[2024-04-19] MEDS: Protonix 40MG Tablet PO SCH (10:05)
[2024-04-19] MEDS: KENALOG 0.1% CREAM 15 GM TP SCH (10:05)
[2024-04-19] MEDS: Lopressor 25MG Tab PO SCH (10:06)
[2024-04-19] MEDS: ECOTRIN 81 MG PO SCH (10:06)
[2024-04-19] MEDS: Lasix 40 MG/4 ML IV SCH (10:06)
[2024-04-19] MEDS: FOLATE 1 MG PO SCH (10:06)
[2024-04-19 11:18] VITALS: BP 150/65; PULSE 63; TEMP 97.8; O2SAT 94
== END 2024-04-19 12:19 | disposition home or self-care (01) ==
LOC: ED 10:52 → MED SURG 14:10
PROVIDERS: ADMIT Internal Medicine; ATTEND Internal Medicine
DX: L03.116 Cellulitis of left lower limb (principal); L03.115 Cellulitis of right lower limb; J44.9 Chronic obstructive pulmonary disease, unspecified; E78.5 Hyperlipidemia, unspecified; G62.9 Polyneuropathy, unspecified; E11.22 Type 2 diabetes mellitus with diabetic chronic kidney disease; M79.604 Pain in right leg; M79.605 Pain in left leg; I12.9 Hypertensive chronic kidney disease with stage 1 through stage 4 chronic kidney disease, or unspecified chronic kidney disease; N18.9 Chronic kidney disease, unspecified; Z79.899 Other long term (current) drug therapy
CPT/HCPCS: 36000; 36415; 80053; 82947; 83036; 83605; 84145; 85025; 85652; 86140; 87040; 93970; 94640; 94760; 96365; 99285; G0378; Q3014; J0295; J0696; J1650; J1817; J1940; A9270-GY